=== PATIENT | male | born 1970 | race Caucasian/White ===

== ENCOUNTER 2018-07-02 13:13 | Emergency (ER) | END 2018-07-02 16:11 | disposition left against medical advice (07) ==

== ENCOUNTER 2018-07-09 10:23 | Inpatient (IN) | payer OTHER ==
[~2018-07-09] VITALS: Ht 170.2 cm; Wt 70.8 kg
[2018-07-09] MEDS ORDERED: morphine 4 MG/ML VIAL IV STA (13:03)
--- NOTE | 2018-07-09 13:03 | ERD ---
ER Documentation Chief Complaint Chief Complaint BACK PAIN,RIGHT LEG NUMBNESS HPI 47-year-old male sent here by neurosurgeon Dr. Caldwell for possible admission for surgery. Per the patient's consent for surgery, he is consented to do bilateral lumbar 2 through sacral 1 posterior lumbar laminectomies, partial facetectomies and foraminotomies. Patient states that he has been suffering with chronic low back pain for the past 2 years but his symptoms significantly worsened 2 months ago. He started getting weakness in both his lower extremities with occasional numbness of his right lower extremity with pain shooting down the back of his right lower extremity. He states that the pain is debilitating. He has tried injections, cryotherapy, and multiple other treatments without improvement of his symptoms. He denies any bladder incontinence or urinary retention. No bowel incontinence or retention. He is currently not on any opioid therapy. He was seen by Dr. Caldwell on June 23, 2018 and surgery was recommended as soon as possible. He called the office today to schedule surgery as his symptoms have been progressively but quickly worsening since he saw the surgeon, and he was told to come to the ER immediately. He denies any IV drug use. No fevers or chills. ROS All systems reviewed and are negative except as per history of present illness. Medications Home Meds Reported Medications Cyclobenzaprine Hcl* (Cyclobenzaprine Hcl*) 10 Mg Tablet, 10 MG PO QHS, #90 TAB 07/09/18 Trazodone Hcl* (Trazodone Hcl*) 150 Mg Tablet, 150 MG PO QHS, #30 TAB 07/09/18 Gabapentin* (Gabapentin*) 300 Mg Capsule, 300 MG PO Q6, #60 CAP 07/09/18 Allergies Allergies: Coded Allergies: No Known Allergy (Unverified , 07/09/18) PMhx/Soc History of Surgery: Yes (cervical spine) Anesthesia Reaction: No Hx Neurological Disorder: No Hx Respiratory Disorders: No Hx Cardiac Disorders: No Hx Psychiatric Problems: No Hx Miscellaneous Medical Probl: No (chronic back pain) Hx Alcohol Use: No Hx Substance Use: No Hx Tobacco Use: Yes Smoking Status: Current every day smoker FmHx Family History: No diabetes Physical Exam Vitals Vital Signs Date Temp Pulse Resp B/P (MAP) Pulse Ox O2 O2 Flow FiO2 Time Delivery Rate 07/09/18 98.1 83 16 115/83 99 Room Air 14:32 (94) 07/09/18 97.0 89 18 144/88 99 10:28 (106) Physical Exam Const: No acute distress nontoxic, well-appearing Head: Atraumatic Eyes: Normal Conjunctiva ENT: Normal External Ears, Nose and Mouth. Neck: Full range of motion. No meningismus. Resp: Clear to auscultation bilaterally Cardio: Regular rate and rhythm, no murmurs Abd: Soft, non tender, non distended. Normal bowel sounds Skin: No petechiae or rashes Back: Midline lower lumbar and sacral tenderness to palpation Ext: No cyanosis, or edema Neur: Awake and alert. Normal speech. Right lower extremity 4 out of 5 strength in all distributions. Left lower extremity 5 out of 5 strength in all the distributions. Sensations grossly intact. Gait not tested due to pain. Positive right and left straight leg raise Psych: Normal Mood and Affect Result Diagram: 07/09/18 1330 07/09/18 1330 Results 24 hrs Laboratory Tests Test 07/09/18 13:30 White Blood Count 15.1 10^3/ul Red Blood Count 4.69 10^6/ul Hemoglobin 15.4 g/dl Hematocrit 44.8 % Mean Corpuscular Volume 95.5 fl Mean Corpuscular Hemoglobin 32.8 pg Mean Corpuscular Hemoglobin Concent 34.4 g/dl Red Cell Distribution Width 12.8 % Platelet Count 263 10^3/UL Mean Platelet Volume 9.7 fl Immature Granulocytes % 0.500 % Neutrophils % 80.1 % Lymphocytes % 13.7 % Monocytes % 4.4 % Eosinophils % 0.9 % Basophils % 0.4 % Nucleated Red Blood Cells % 0.0 /100WBC Immature Granulocytes # 0.080 10^3/ul Neutrophils # 12.1 10^3/ul Lymphocytes # 2.1 10^3/ul Monocytes # 0.7 10^3/ul Eosinophils # 0.1 10^3/ul Basophils # 0.1 10^3/ul Nucleated Red Blood Cells # 0.0 10^3/ul Prothrombin Time 11.9 Sec Prothrombin Time Ratio 0.9 INR International Normalized Ratio 0.87 Activated Partial Thromboplast Time 34.5 Sec Urine Color YELLOW Urine Clarity CLEAR Urine pH 6.0 Urine Specific [place] 1.010 Urine Ketones NEGATIVE mg/dL Urine Nitrite NEGATIVE mg/dL Urine Bilirubin NEGATIVE mg/dL Urine Urobilinogen NEGATIVE mg/dL Urine Leukocyte Esterase NEGATIVE Sole/ul Urine Hemoglobin NEGATIVE mg/dL Urine Glucose NEGATIVE mg/dL Urine Total Protein NEGATIVE mg/dl Sodium Level 142 mmol/L Potassium Level 4.4 mmol/L Chloride Level 108 mmol/L Carbon Dioxide Level 26 mmol/L Anion Gap 8 Blood Urea Nitrogen 14 mg/dl Creatinine 0.94 mg/dl Est Glomerular Filtrat Rate mL/min > 60 mL/min Glucose Level 96 mg/dl Calcium Level 10.9 mg/dl Total Bilirubin 0.3 mg/dl Direct Bilirubin 0.00 mg/dl Indirect Bilirubin 0.3 mg/dl Aspartate Amino Transf (AST/SGOT) 21 IU/L Alanine Aminotransferase (ALT/SGPT) 20 IU/L Alkaline Phosphatase 82 IU/L Total Protein 7.9 g/dl Albumin 4.4 g/dl Globulin 3.50 g/dl Albumin/Globulin Ratio 1.25 Current Medications Medications Dose Sig/Josafat Start Time Status Last (Trade) Ordered Route PRN Stop Time Admin Dose Reason Admin Morphine 4 mg ONCE STAT 07/09/18 DC 07/09/18 Sulfate IV 13:03 07/09/18 13:27 (morphine) 13:05 Ondansetron 4 mg BRIDGE ORDER 07/09/18 HCl (Zofran PRN IV 14:00 07/10/18 Inj) NAUSEA AND/OR 13:59 VOMITING 650 mg ER BRIDGE 07/09/18 Acetaminophen PRN PO MILD 14:00 07/10/18 (Tylenol PAIN(1-3)OR 13:59 Tab) ELEVATED TEMP Morphine 6 mg ONCE ONCE 07/09/18 DC 07/09/18 Sulfate IV 14:30 07/09/18 14:35 (morphine) 14:31 Procedures/MDM EMERGENT LABS AND DIAGNOSTIC STUDIES: Lab Results above were reviewed and interpreted by me. CBC: Leukocytosis, unclear etiology. Probably stress response CMP: Mild hypercalcemia, unclear etiology. No evidence of electrolyte abnormality, renal failure, hypoglycemia, liver failure, or biliary obstruction 12-lead EKG was interpreted by Lenin Martinez MD: Normal Sinus Rhythm with ventricular rate of 84 beats per minute Normal axis Normal intervals No acute ST or T wave changes suggestive of acute ischemia or STEMI. Radiology Results as interpreted by Radiology below were reviewed by Chris Martinez MD: Chest x-ray shows no acute abnormalities Initial Nursing notes reviewed. Previous Medical Records requested via the Electronic Health Record. EMERGENCY DEPARTMENT COURSE / MEDICAL DECISION MAKING: Patient is presenting with a severe low back pain that has been progressively worsening with worsening right lower extremity weakness that is reproducible on exam. Vitals are stable. I have a low suspicion for epidural abscess or vascular emergency. However given his progressive right lower extremity weakness, I feel the patient will require admission for possible surgical intervention. I spoke with Dr. Caldwell, his neurosurgeon, who agrees and would like him admitted. Patient was treated with morphine for his pain with good response. He is agreeable to admission plan. Accepting Care Team: Current data and ongoing care discussed. Time: Time of admission Primary Provider: Dr. White Consulting: Dr. Caldwell Outstanding Data: none Departure Diagnosis: Primary Impression: Acute exacerbation of chronic low back pain Additional Impressions: Right leg weakness Paresthesias/numbness Condition: Serious SHAHANA MARTINEZ MD Jul 09, 2018 13:03
[2018-07-09] MEDS ORDERED: ACETAMINOPHEN 325 MG TAB PO PRN (14:00)
[2018-07-09] MEDS ORDERED: ONDANSETRON 4 MG INJ IV PRN ×2 (14:00→17:30)
[2018-07-09] MEDS ORDERED: morphine 10 MG INJ IV ONE (14:30)
[2018-07-09] MEDS ORDERED: GABA300C16 PO (14:53)
[2018-07-09] MEDS ORDERED: CYCL10TA7 PO (14:54)
[2018-07-09] MEDS ORDERED: TRAZ150T65 PO (14:54)
[2018-07-09 15:30] VITALS: BP 129/85; PULSE 74; RESP 18
[2018-07-09 15:48] VITALS: Ht 170.2 cm; Wt 70.8 kg
[2018-07-09] MEDS: HYDROmorphONE 1 MG/ML SYG IV PRN ×2 (17:15→21:05)
--- NOTE | 2018-07-09 18:27 | HP ---
Date/Time of Note Date/Time of Note DATE: 07/09/18 TIME: 18:22 Assessment/Plan VTE Prophylaxis Pharmacological prophylaxis: LMWH Lines/Catheters IV Catheter Type (from Nrsg): Peripheral IV Central line still needed: Yes Assessment/Plan Assessment/Plan -Acute lower back pain with RLE radiculopathy and weakness. Dr. Caldwell is follow ing in neurosurgery consultation. Continue pain management. -Tobacco dependence, Nicotine patch Further recommendations based on clinical course. Plan of care discussed with Dr. White. Result Diagram: 07/09/18 1330 07/09/18 1330 Results 24hrs Laboratory Tests Test 07/09/18 13:30 White Blood Count 15.1 H Red Blood Count 4.69 L Hemoglobin 15.4 Hematocrit 44.8 Mean Corpuscular Volume 95.5 Mean Corpuscular Hemoglobin 32.8 Mean Corpuscular Hemoglobin Concent 34.4 Red Cell Distribution Width 12.8 Platelet Count 263 Mean Platelet Volume 9.7 Immature Granulocytes % 0.500 H Neutrophils % 80.1 H Lymphocytes % 13.7 L Monocytes % 4.4 Eosinophils % 0.9 Basophils % 0.4 Nucleated Red Blood Cells % 0.0 Immature Granulocytes # 0.080 H Neutrophils # 12.1 H Lymphocytes # 2.1 Monocytes # 0.7 Eosinophils # 0.1 Basophils # 0.1 Nucleated Red Blood Cells # 0.0 Prothrombin Time 11.9 Prothrombin Time Ratio 0.9 INR International Normalized Ratio 0.87 Activated Partial Thromboplast Time 34.5 Urine Color YELLOW Urine Clarity CLEAR Urine pH 6.0 Urine Specific [place] 1.010 Urine Ketones NEGATIVE Urine Nitrite NEGATIVE Urine Bilirubin NEGATIVE Urine Urobilinogen NEGATIVE Urine Leukocyte Esterase NEGATIVE Urine Hemoglobin NEGATIVE Urine Glucose NEGATIVE Urine Total Protein NEGATIVE Sodium Level 142 Potassium Level 4.4 Chloride Level 108 Carbon Dioxide Level 26 Anion Gap 8 Blood Urea Nitrogen 14 Creatinine 0.94 Est Glomerular Filtrat Rate mL/min > 60 Glucose Level 96 Calcium Level 10.9 H Total Bilirubin 0.3 Direct Bilirubin 0.00 Indirect Bilirubin 0.3 Aspartate Amino Transf (AST/SGOT) 21 Alanine Aminotransferase (ALT/SGPT) 20 Alkaline Phosphatase 82 Total Protein 7.9 Albumin 4.4 Globulin 3.50 H Albumin/Globulin Ratio 1.25 HPI/ROS Admit Date/Time Admit Date/Time Jul 09, 2018 at 13:48 Hx of Present Illness Patient is 47-year-old male with acute on chronic low back pain over the last 2 years. Patient was seen by Dr. Caldwell in the office due to worsening of symptoms with developing weakness in bilateral lower extremities with numbness and a little low back pain radiating to right lower extremities. Patient failed conservative treatment with steroid injection cryotherapy. Patient will be admitted for pain management and will undergo lumbosacral laminectomy. Patient denies any bowel or urinary incontinence. Patient is an every day smoker. ROS 12 point review of systems negative except for what mentioned in HPI PMH/Family/Social Past Medical History Medications Current Medications Hydromorphone HCl (Dilaudid) 1 mg Q4H PRN IV SEVERE PAIN LEVEL 7-10 Last administered on 07/09/18at 17:15; Admin Dose 1 MG; Start 07/09/18 at 17:00 Gabapentin (Neurontin) 300 mg BID PO ; Start 07/09/18 at 21:00 Ondansetron HCl (Zofran Inj) 4 mg Q4H PRN IV NAUSEA AND/OR VOMITING; Start 07/09/18 at 17:30 Nicotine (Nicoderm 14 Mg/ 24hr) 1 patch DAILY TRANSDERM ; Start 07/09/18 at 21:00 Coded Allergies: No Known Allergy (Unverified , 07/09/18) Past Surgical History Past Surgical Hx: other (Cervical spine surgery) Social History Alcohol Use: none Smoking Status: Current every day smoker Drug Use: none Exam/Review of Systems Vital Signs Vitals Vital Signs Date Temp Pulse Resp B/P (MAP) Pulse Ox O2 O2 Flow FiO2 Time Delivery Rate 07/09/18 98.1 74 18 129/85 99 Room Air 15:30 (100) Exam Constitutional: alert, oriented Head: normocephalic Eyes: nl conjunctiva ENMT: nl external ears & nose Neck: supple Respiratory: clear to auscultation Cardiovascular: nl pulses Gastrointestinal: soft, non-tender Musculoskeletal: other (RLE weakness) Extremities: normal pulses Neurological: nl mental status Skin: nl turgor Lymph: nl lymph nodes NAVID HYATT Jul 09, 2018 18:27
[2018-07-09 19:45] VITALS: BP 96/66; PULSE 72; RESP 16
[2018-07-09] MEDS: GABAPENTIN 300 MG CAP PO SCH (21:05)
[2018-07-09] MEDS: NICOTINE (14 MG/24 HR) PATCH TRANSDERM SCH (21:05)
[2018-07-10] MEDS: HYDROmorphONE 1 MG/ML SYG IV PRN ×6 (01:10→20:46)
[2018-07-10 01:47] VITALS: BP 120/74; PULSE 66; RESP 18
[2018-07-10 07:21] VITALS: BP 103/60; PULSE 69; RESP 16
[2018-07-10] MEDS ORDERED: NICOTINE (14 MG/24 HR) PATCH TRANSDERM SCH (09:00)
[2018-07-10] MEDS: NICOTINE (14 MG/24 HR) PATCH TRANSDERM SCH (09:16)
[2018-07-10] MEDS: GABAPENTIN 300 MG CAP PO SCH ×2 (09:18→20:45)
--- NOTE | 2018-07-10 11:18 | CONS ---
Date/Time of Note Date/Time of Note DATE: 07/10/18 TIME: 11:13 Assessment/Plan Assessment/Plan Assessment/Plan 47 y/o male well known to Dr. Caldwell and recently evaluated for severe LBP with LE radiculopathy to RLE Multiple attempts at conservative management but without much success Recently seen by Dr. Caldwell on 06/23/2018 and advised he was a surgical candidate. Plan for L2-S1 ALIF tomorrow with posterior fixation to follow in 1-2 days. NPO after early breakfast. Surgery tomorrow at [address] Caldwell / Dr. Jazmine talamantes (Spine exposure) Discussed all risk/complications 3-5% as preprinted in Dr. Caldwell preop consent form. All questions answered and no guarantees given. pt understands risk/complications/benefits from surgery and would like to proceed. Result Diagram: 07/09/18 1330 07/09/18 1330 Results 24hrs Laboratory Tests Test 07/09/18 13:30 White Blood Count 15.1 H Red Blood Count 4.69 L Hemoglobin 15.4 Hematocrit 44.8 Mean Corpuscular Volume 95.5 Mean Corpuscular Hemoglobin 32.8 Mean Corpuscular Hemoglobin Concent 34.4 Red Cell Distribution Width 12.8 Platelet Count 263 Mean Platelet Volume 9.7 Immature Granulocytes % 0.500 H Neutrophils % 80.1 H Lymphocytes % 13.7 L Monocytes % 4.4 Eosinophils % 0.9 Basophils % 0.4 Nucleated Red Blood Cells % 0.0 Immature Granulocytes # 0.080 H Neutrophils # 12.1 H Lymphocytes # 2.1 Monocytes # 0.7 Eosinophils # 0.1 Basophils # 0.1 Nucleated Red Blood Cells # 0.0 Prothrombin Time 11.9 Prothrombin Time Ratio 0.9 INR International Normalized Ratio 0.87 Activated Partial Thromboplast Time 34.5 Urine Color YELLOW Urine Clarity CLEAR Urine pH 6.0 Urine Specific [place] 1.010 Urine Ketones NEGATIVE Urine Nitrite NEGATIVE Urine Bilirubin NEGATIVE Urine Urobilinogen NEGATIVE Urine Leukocyte Esterase NEGATIVE Urine Hemoglobin NEGATIVE Urine Glucose NEGATIVE Urine Total Protein NEGATIVE Sodium Level 142 Potassium Level 4.4 Chloride Level 108 Carbon Dioxide Level 26 Anion Gap 8 Blood Urea Nitrogen 14 Creatinine 0.94 Est Glomerular Filtrat Rate mL/min > 60 Glucose Level 96 Calcium Level 10.9 H Total Bilirubin 0.3 Direct Bilirubin 0.00 Indirect Bilirubin 0.3 Aspartate Amino Transf (AST/SGOT) 21 Alanine Aminotransferase (ALT/SGPT) 20 Alkaline Phosphatase 82 Total Protein 7.9 Albumin 4.4 Globulin 3.50 H Albumin/Globulin Ratio 1.25 Consultation Date/Type/Reason Admit Date/Time Jul 09, 2018 at 13:48 Past Medical History Medications Current Medications Hydromorphone HCl (Dilaudid) 1 mg Q4H PRN IV SEVERE PAIN LEVEL 7-10 Last administered on 07/10/18 09:18; Admin Dose 1 MG; Start 07/09/18 at 17:00 Gabapentin (Neurontin) 300 mg BID PO Last administered on 07/10/18 09:18; Admin Dose 300 MG; Start 07/09/18 at 21:00 Ondansetron HCl (Zofran Inj) 4 mg Q4H PRN IV NAUSEA AND/OR VOMITING; Start 07/09/18 at 17:30 Nicotine (Nicoderm 14 Mg/ 24hr) 1 patch DAILY TRANSDERM Last administered on 07/10/18 09:16; Admin Dose 1 PATCH; Start 07/09/18 at 21:00 Allergies: Coded Allergies: No Known Allergy (Unverified , 07/09/18) Past Surgical History Past Surgical Hx: other (Cervical spine surgery) Social History Alcohol Use: none Smoking Status: Current every day smoker Drug Use: none Exam/Review of Systems Vital Signs Vitals Vital Signs Date Temp Pulse Resp B/P (MAP) Pulse Ox O2 O2 Flow FiO2 Time Delivery Rate 07/10/18 98.5 69 16 103/60 98 Room Air 07:21 (74) Intake and Output 07/09/18 07/09/18 07/10/18 1515:00 23:00 07:00 IntakeIntake Total 360 ml OutputOutput Total 600 ml BalanceBalance 360 ml -600 ml Medications Medications Current Medications Hydromorphone HCl (Dilaudid) 1 mg Q4H PRN IV SEVERE PAIN LEVEL 7-10 Last administered on 07/10/18 09:18; Admin Dose 1 MG; Start 07/09/18 at 17:00 Gabapentin (Neurontin) 300 mg BID PO Last administered on 07/10/18 09:18; Admin Dose 300 MG; Start 07/09/18 at 21:00 Ondansetron HCl (Zofran Inj) 4 mg Q4H PRN IV NAUSEA AND/OR VOMITING; Start 07/09/18 at 17:30 Nicotine (Nicoderm 14 Mg/ 24hr) 1 patch DAILY TRANSDERM Last administered on 07/10/18at 09:16; Admin Dose 1 PATCH; Start 07/09/18 at 21:00 TL TORRES NP Jul 10, 2018 11:18
[2018-07-10 14:32] VITALS: BP 107/65; PULSE 77; RESP 18
--- NOTE | 2018-07-10 15:20 | PN ---
Date/Time of Note Date/Time of Note DATE: 07/10/18 TIME: 15:19 Assessment/Plan VTE Prophylaxis Risk score (from Nsg)>0 risk: 2 SCD applied (from Nsg): Yes Pharmacological prophylaxis: LMWH Lines/Catheters IV Catheter Type (from Nrsg): Saline Lock Assessment/Plan Hospital Course Assessment/Plan -Acute lower back pain with RLE radiculopathy and weakness. Dr. Caldwell is following in neurosurgery consultation. Continue pain management. Plan for L2- S1 ALIF tomorrow with posterior fixation to follow in 1-2 days. -Tobacco dependence, continue Nicotine patch, cessation advised. Further recommendations based on clinical course. Plan of care discussed with Dr. White. Result Diagram: 07/10/18 1124 07/10/18 1124 Results 24hrs Laboratory Tests Test 07/10/18 11:24 White Blood Count 9.4 # Red Blood Count 4.46 L Hemoglobin 14.7 Hematocrit 42.3 Mean Corpuscular Volume 94.8 Mean Corpuscular Hemoglobin 33.0 Mean Corpuscular Hemoglobin Concent 34.8 Red Cell Distribution Width 12.9 Platelet Count 237 Mean Platelet Volume 10.3 Immature Granulocytes % 0.600 H Neutrophils % 59.3 Lymphocytes % 29.2 Monocytes % 6.6 Eosinophils % 3.4 Basophils % 0.9 Nucleated Red Blood Cells % 0.0 Immature Granulocytes # 0.060 H Neutrophils # 5.6 Lymphocytes # 2.8 Monocytes # 0.6 Eosinophils # 0.3 Basophils # 0.1 Nucleated Red Blood Cells # 0.0 Prothrombin Time 11.6 L Prothrombin Time Ratio 0.9 INR International Normalized Ratio 0.84 Activated Partial Thromboplast Time 33.7 Sodium Level 138 Potassium Level 4.5 Chloride Level 105 Carbon Dioxide Level 30 Anion Gap 3 L Blood Urea Nitrogen 21 H Creatinine 1.07 Est Glomerular Filtrat Rate mL/min > 60 Glucose Level 86 Calcium Level 10.8 H Exam/Review of Systems Vital Signs Vitals Vital Signs Date Temp Pulse Resp B/P (MAP) Pulse Ox O2 O2 Flow FiO2 Time Delivery Rate 07/10/18 98.8 77 18 107/65 97 Room Air 14:32 (79) Intake and Output 07/09/18 07/09/18 07/10/18 1515:00 23:00 07:00 IntakeIntake Total 360 ml OutputOutput Total 600 ml BalanceBalance 360 ml -600 ml Exam Constitutional: alert, oriented Neck: supple Respiratory: normal air movement Cardiovascular: nl pulses Gastrointestinal: soft, non-tender Musculoskeletal: other (Right lower extremity pain and weakness) Extremities: normal pulses Medications Medications Current Medications Hydromorphone HCl (Dilaudid) 1 mg Q4H PRN IV SEVERE PAIN LEVEL 7-10 Last administered on 07/10/18 13:20; Admin Dose 1 MG; Start 07/09/18 at 17:00 Gabapentin (Neurontin) 300 mg BID PO Last administered on 07/10/18at 09:18; Admin Dose 300 MG; Start 07/09/18 at 21:00 Ondansetron HCl (Zofran Inj) 4 mg Q4H PRN IV NAUSEA AND/OR VOMITING; Start 07/09/18 at 17:30 Nicotine (Nicoderm 14 Mg/ 24hr) 1 patch DAILY TRANSDERM Last administered on 07/10/18at 09:16; Admin Dose 1 PATCH; Start 07/09/18 at 21:00 NAVID HYATT Jul 10, 2018 15:20
[2018-07-10 20:29] VITALS: BP 109/75; PULSE 77; RESP 16
[2018-07-11] VITALS (10 sets, daily range): BP systolic 104–146; BP diastolic 69–102; PULSE 77–112; RESP 11–18
[2018-07-11] MEDS: HYDROmorphONE 1 MG/ML SYG IV PRN ×5 (00:56→20:09)
[2018-07-11] MEDS: GABAPENTIN 300 MG CAP PO SCH ×2 (08:52→20:51)
[2018-07-11] MEDS: NICOTINE (14 MG/24 HR) PATCH TRANSDERM SCH (08:52)
[2018-07-11] MEDS ORDERED: MIDAZOLAM 1 MG/ML 2 ML INJ ONE (13:48)
[2018-07-11] MEDS ORDERED: FENTAnyl 50 MCG/ML VIAL ONE ×3 (13:48→18:09)
[2018-07-11] MEDS ORDERED: PROPOFOL 20 ML ONE (13:49)
[2018-07-11] MEDS ORDERED: METOCLOPRAMIDE 10 MG INJ ONE (13:50)
[2018-07-11] MEDS ORDERED: ROCURONIUM 50 MG INJ ONE (13:55)
[2018-07-11] MEDS ORDERED: LIDOCAINE 2% (SDV) 5 ML INJ ONE (13:55)
[2018-07-11] MEDS ORDERED: SUCCINYLCHOLINE CHLORIDE 100 MG/5 ML SYG IV ONE (13:55)
[2018-07-11] MEDS ORDERED: CEFAZOLIN 1 GM INJ ONE ×2 (13:56→16:19)
[2018-07-11] MEDS ORDERED: HYDROmorphONE 2 MG/ML SYG ONE (13:56)
[2018-07-11] MEDS ORDERED: GELATIN SIZE 100 SPONGE ONE (16:19)
[2018-07-11] MEDS ORDERED: HEPARIN 1000 UNITS/ML 10 ML INJ ONE (16:19)
[2018-07-11] MEDS ORDERED: THROMBIN 5000 UNIT VIAL ONE (16:19)
[2018-07-11] MEDS ORDERED: KETAMINE (50 MG/ML) 10 ML VIAL ONE (16:48)
[2018-07-11] MEDS ORDERED: NALOXONE (0.4 MG/ML) INJ IV PRN (18:00)
[2018-07-11] MEDS ORDERED: CEFAZOLIN 2 GM/50 ML (PMX) 50 ML IVPB SCH (19:30)
--- NOTE | 2018-07-11 19:43 | OPPN ---
Date/Time of Note Date/Time of Note DATE: 07/11/18 TIME: 19:41 Operative Report Preoperative Diagnosis mechanical LBP and LE radiculopathy Postoperative Diagnosis same Operation/Procedure Performed ALIF L2-S1 Surgeon see signature line assistant professor of geography Malekmehr Second assist: TL TORRES NP Anesthesia: general Estimated blood loss: 200 - 250 ml's Transfusion Required none Specimen sent Grafts/Implants cages, screws, formagraft, allograft bone Complications none ADDISON VEGA MD Jul 11, 2018 19:43
--- NOTE | 2018-07-11 19:49 | PREAC ---
Date/Time of Note Date/Time of Note DATE: 07/11/18 TIME: 19:48 Anesthesia Eval and Record Evaluation Time Pre-Procedure Interview DATE: 07/11/18 TIME: pt preoped at 1630 Age 47 Sex male NPO: 8 hrs Preoperative diagnosis lumbosacral radiculopathy Planned procedure L2-S1 anterior "alift" interbody spinal fusion Past Medical History Past Medical History: Includes Pulm: Smoking Hx, COPD Neuro: Peripheral neuropathy Psych: Anxiety Surgery & Anesthesia Issues No known issue Meds Anticoagulation: No Beta Sheldon within 24 hr: No Reason Beta Sheldon not given: Pt. not on B-Sheldon Reported Medications Cyclobenzaprine Hcl* (Cyclobenzaprine Hcl*) 10 Mg Tablet, 10 MG PO QHS, #90 TAB 07/09/18 Trazodone Hcl* (Trazodone Hcl*) 150 Mg Tablet, 150 MG PO QHS, #30 TAB 07/09/18 Gabapentin* (Gabapentin*) 300 Mg Capsule, 300 MG PO Q6, #60 CAP 07/09/18 Current Medications Gabapentin (Neurontin) 300 mg BID PO Last administered on 07/11/18at 08:52; Admin Dose 300 MG; Start 07/09/18 at 21:00 Ondansetron HCl (Zofran Inj) 4 mg Q4H PRN IV NAUSEA AND/OR VOMITING; Start 07/09/18 at 17:30 Nicotine (Nicoderm 14 Mg/ 24hr) 1 patch DAILY TRANSDERM Last administered on 07/11/18at 08:52; Admin Dose 1 PATCH; Start 07/09/18 at 21:00 Hydromorphone HCl (Dilaudid) 1.5 mg Q4H PRN IV SEVERE PAIN LEVEL 7-10 Last administered on 07/11/18at 13:14; Admin Dose 1.5 MG; Start 07/10/18 at 21:00 Hydromorphone HCl (Dilaudid [employer]) MG/HR CONTINUOUS RATE ... Q4PCA IV ; Start 07/11/18 at 18:00 Naloxone HCl (Narcan) 0.2 mg Q2M PRN IV SHORTNESS OF BREATH; Start 07/11/18 at 1 8:00 Cefazolin Sodium/ Dextrose 50 ml @ 100 mls/hr Q8 IVPB ; Start 07/11/18 at 19:30; Stop 07/13/18 at 22:00 Potassium Chloride/Sodium Chloride 1,000 ml @ 100 mls/hr Q10H IV ; Start 07/11/18 at 19:00 Meds reviewed: Yes Allergies Coded Allergies: No Known Allergy (Unverified , 07/09/18) Allergies Reviewed: Yes Labs/Studies Labs Reviewed: Reviewed by anesthesiologist Result Diagram: 07/10/18 1124 07/10/18 1124 test: N/A Studies: ECG, CXR Pre-procedure Exam Last vitals Vital Signs Date Temp Pulse Resp B/P (MAP) Pulse Ox O2 O2 Flow FiO2 Time Delivery Rate 07/11/18 98.2 77 18 104/69 95 Room Air 14:32 (81) Airway: Adequate mouth opening, Adequate thyromental dist Mallampati: Mallampati III Teeth: Abnormal (poor dentition) Lung: Normal Heart: Normal ASA Physical Status ASA physical status: 3 Emergency: None Planned Anesthetic General/MAC: ETT Planned Pain Management Parenteral pain med, Local by surgeon Pre-operative Attestations Prior to commencing anesthesia and surgery, the patient was re-evaluated, there was verification of: *The patient's identity *The results of appropriate recent lab work and preoperative vital signs *The above evaluation not changing prior to induction *Anesthetic plan, risk benefits, alternative and complications discussed with patient/family; questions answered; patient/family understands, accepts and wishes to proceed. ZOILA ROJAS MD Jul 11, 2018 19:49
[2018-07-11] MEDS ORDERED: DIPHENHYDRAMINE 50 MG INJ IV PRN (20:00)
[2018-07-11] MEDS ORDERED: LEVALBUTEROL (NEB) 1.25 MG/0.5 ML AMP HHN PRN (20:00)
[2018-07-11] MEDS ORDERED: ONDANSETRON 4 MG INJ IV PRN (20:00)
[2018-07-11] MEDS ORDERED: PROCHLORPERAZINE 10 MG INJ IV PRN (20:00)
[2018-07-11] MEDS ORDERED: LABETALOL HCL 20MG INJ IV PRN (20:00)
[2018-07-11] MEDS ORDERED: TRIMETHOBENZAMIDE 100 MG/ML VIAL IM PRN (20:00)
[2018-07-11] MEDS ORDERED: HYDROmorphONE 0.5 MG/0.5 ML SYG IV PRN ×3 (20:00)
[2018-07-11] MEDS ORDERED: hydrALAzine 20 MG INJ IV PRN (20:00)
[2018-07-11] MEDS ORDERED: FENTAnyl 50 MCG/ML VIAL IV PRN ×2 (20:00)
[2018-07-11] MEDS ORDERED: IPRATROPIUM (NEB) 0.5 MG/2.5 ML AMP HHN PRN (20:00)
[2018-07-11] MEDS ORDERED: MEPERIDINE 25 MG INJ IV PRN (20:00)
[2018-07-11] MEDS ORDERED: SUGAMMADEX SODIUM 200 MG/2 ML VIAL IV ONE (20:08)
[2018-07-11] MEDS: HYDROmorphONE 0.2 MG/ML PCA IV SCH (20:46)
[2018-07-11] MEDS: NS + KCL 20 MEQ 1,000 ML IV SCH (21:13)
[2018-07-11] MEDS: CEFAZOLIN 2 GM/50 ML (PMX) 50 ML IVPB SCH (23:57)
[2018-07-12] VITALS (18 sets, daily range): BP systolic 92–130; BP diastolic 56–97; PULSE 104–125; RESP 13–20
--- NOTE | 2018-07-12 00:59 | OPR ---
DATE OF OPERATION: PREOPERATIVE DIAGNOSIS: Degenerative disk disease, lumbosacral spine. POSTOPERATIVE DIAGNOSIS: Degenerative disk disease, lumbosacral spine. OPERATIONS PERFORMED: 1. Anterior retroperitoneal exposure interbody fusion, L2 to L3. 2. Anterior retroperitoneal exposure interbody fusion, L3 to L4. 3. Anterior retroperitoneal exposure interbody fusion, L4 to L5. 4. Anterior retroperitoneal exposure interbody fusion, L5 to S1. 5. Mobilization of the aorta and vena cava to the right. 6. Ligation of the iliolumbar veins on the left side. SURGEON: Chandrakant Carson MD COSURGEON: Antonieta Vega MD ANESTHESIA: General. ESTIMATED BLOOD LOSS: 200 mL. INFORMED CONSENT: Risks, benefits, complications, alternative therapies and high-risk nature of the operation were fully explained to the patient and the family. Consent was obtained. Risks and benef its that were explained to the patient included but not limited to bleeding, infection, damage to bow el, damage to ureter, wound infection, wound dehiscence, DVT, PE, loss of limb, loss of life, high-ri sk nature of the operation were fully explained and stressed to the patient. All questions were answ ered. OPERATIVE TECHNIQUE: The patient was placed in supine position, prepped and draped in usual sterile fashion. I made a 15 cm incision in the left of the umbilicus longitudinal fashion. Incision was ta juanpablo down to subcutaneous tissue which was then opened using electrocautery. Left anterior rectus she ath was opened in the direction of the wound. Left rectus muscle was mobilized superiorly and inferi danisha about 5 cm. Posterior rectus sheath was incised superiorly about 5 cm. Bookwalter retractor wa s placed retracting the bowel contents to the right, left rectus muscle to the left. I dissected lef t common iliac artery and vein, external iliac artery and vein. The left iliolumbar veins were ligat ed using 2-0 silk ties and titanium clips. The left lowest segmental vessels x2 were ligated using t itanium clip except for exposure for L2 to L3, L3 to L4, L4 to L5 and L5 to S1 was obtained by retrac ting the left common iliac artery and vein, vena cava and aorta to the right. We proceeded with the diskectomy and placement of the new cage. Please refer to Dr. Vega's dictation for the details of t hat operation. After all x-rays were satisfactorily read by Dr. Vega, needle count and sponge count was correct. The wound was irrigated using antibiotic solution. Posterior rectus sheath was closed using 0 Vicryl suture in running fashion. Anterior rectus sheath was closed using #1 Vicryl suture in a running fashion. Ezio were used for the skin. The patient tolerated procedure well. Dictated By: CHANDRAKANT CARSON MD FM/NTS Conf#: [id number] DID#: [id number] CC: ANTONIETA VEGA MD; ALOK DE LEON MD;*EndCC*
--- NOTE | 2018-07-12 01:02 | CONS ---
DATE OF ADMISSION: 07/09/2018 DATE OF CONSULTATION: REASON FOR CONSULTATION: Surgical. HISTORY OF PRESENT ILLNESS: This is a 47-year-old male with history of degenerative disk disease, wh o is here to undergo anterior retroperitoneal exposure and interbody fusion of lumbosacral spine. PAST SURGICAL HISTORY: None. SOCIAL HISTORY: No smoking or drinking. The patient did use drugs in the past. ALLERGIES: NONE. MEDICATION LIST: Reviewed. PHYSICAL EXAMINATION: VITAL SIGNS: Blood pressure is 102/60, pulse is 80, respirations 18. HEENT: Normocephalic, atraumatic. PERRLA. NECK: Supple. No JVD. No carotid bruits. CARDIOVASCULAR: Normal S1, S2. No murmurs, gallops or rubs. LUNGS: Clear to auscultation and palpation bilaterally. EXTREMITIES: Warm. IMPRESSION: Degenerative disk disease, lumbosacral spine. RECOMMENDATIONS: We will proceed with anterior retroperitoneal exposure interbody fusion of lumbosac ral spine. Risks, benefits, complications, alternative therapies were explained to the patient. Con sent was obtained. Risks and benefits that were explained to the patient included but not limited to bleeding, infection, damage to bowel, damage to ureter, wound infection, wound dehiscence, DVT, PE, loss of limb, loss of life. All questions were answered. The high-risk nature of the operation was fully explained and stressed to the patient. All questions were answered. Dictated By: CHANDRAKANT COSBY MD FM/NTS Conf#: [id number] DID#: [id number] CC: ADDISON VEGA MD; ALOK DE LEON MD;*EndCC*
[2018-07-12] MEDS: ALBUTEROL/IPRATROPIUM (NEB) 3 ML AMP HHN SCH ×2 (01:25→08:00)
[2018-07-12] MEDS: HYDROmorphONE 0.2 MG/ML PCA IV SCH ×3 (01:52→16:45)
--- NOTE | 2018-07-12 02:20 | PAC ---
Date/Time of Note Date/Time of Note DATE: 07/12/18 TIME: 02:19 Post-Anesthesia Notes Post-Anesthesia Note Last documented vital signs Vital Signs Date Temp Pulse Resp B/P (MAP) Pulse Ox O2 O2 Flow FiO2 Time Delivery Rate 07/12/18 Nasal 2.0 02:00 Cannula 07/12/18 118 13 101/75 96 02:00 (84) 07/12/18 27 01:51 07/12/18 98.0 00:00 Activity: WNL Respiratory function: WNL Cardiovascular function: WNL Mental status: Baseline Pain reasonably controlled: Yes Hydration appropriate: Yes Nausea/Vomiting absent: Yes ZOILA ROJAS MD Jul 12, 2018 02:20
[2018-07-12] MEDS: CEFAZOLIN 2 GM/50 ML (PMX) 50 ML IVPB SCH ×3 (06:29→21:26)
[2018-07-12] MEDS: NS + KCL 20 MEQ 1,000 ML IV SCH (06:29)
[2018-07-12] MEDS: GABAPENTIN 300 MG CAP PO SCH ×2 (08:50→21:25)
[2018-07-12] MEDS: NICOTINE (14 MG/24 HR) PATCH TRANSDERM SCH (08:51)
[2018-07-12] MEDS: HYDROmorphONE 1 MG/ML SYG IV PRN (10:13)
--- NOTE | 2018-07-12 14:16 | PN ---
Date/Time of Note Date/Time of Note DATE: 07/12/18 TIME: 14:13 Assessment/Plan VTE Prophylaxis Risk score (from Ns)>0 risk: 8 SCD applied (from Ns): Yes SCD contraindicated: other Pharmacological prophylaxis: other Pharm contraindication: other Lines/Catheters IV Catheter Type (from Nrsg): A Line Central line still needed: Yes Urinary Cath still in place: Yes Reason Cath still needed: urinary retention Assessment/Plan Assessment/Plan - SP Anterior retroperitoneal exposure interbody fusion, L2 to L3 , L3 to L4; L4 to L5; L5 to S1. - Dr. Caldwell is following in neurosurgery consultation. - Acute lower back pain with radiculopathy and lower extremities weakness. - Continue pain management. -Tobacco dependence - provide smoking cessation Further recommendations based on clinical course. Plan of care discussed with Dr. White. Result Diagram: 07/12/18 0507 07/12/18 0448 Results 24hrs Laboratory Tests Test 07/12/18 04:48 07/12/18 05:07 Sodium Level 136 Potassium Level 4.5 Chloride Level 109 Carbon Dioxide Level 23 Anion Gap 9 # Blood Urea Nitrogen 19 Creatinine 0.96 Est Glomerular Filtrat Rate mL/min > 60 Glucose Level 104 Calcium Level 8.9 Hemoglobin 12.0 L Hematocrit 34.4 L Exam/Review of Systems Vital Signs Vitals Vital Signs Date Temp Pulse Resp B/P (MAP) Pulse Ox O2 O2 Flow FiO2 Time Delivery Rate 07/12/18 99.0 116 20 110/62 99 Nasal 12:00 (78) Cannula 07/12/18 2.0 08:00 07/12/18 27 01:51 Intake and Output 07/11/18 07/11/18 07/12/18 1414:59 22:59 06:59 IntakeIntake Total 320 ml 1560 ml OutputOutput Total 850 ml 1025 ml 1075 ml BalanceBalance -850 ml -705 ml 485 ml Medications Medications Current Medications Gabapentin (Neurontin) 300 mg BID PO Last administered on 07/12/18at 08:50; Admin Dose 300 MG; Start 07/09/18 at 21:00 Ondansetron HCl (Zofran Inj) 4 mg Q4H PRN IV NAUSEA AND/OR VOMITING; Start 07/09/18 at 17:30 Nicotine (Nicoderm 14 Mg/ 24hr) 1 patch DAILY TRANSDERM Last administered on 07/12/18 08:51; Admin Dose 1 PATCH; Start 07/09/18 at 21:00 Hydromorphone HCl (Dilaudid) 1.5 mg Q4H PRN IV SEVERE PAIN LEVEL 7-10 Last administered on 07/12/18 10:13; Admin Dose 1.5 MG; Start 07/10/18 at 21:00 Hydromorphone HCl (Dilaudid [employer]) MG/HR CONTINUOUS RATE ... Q4PCA IV Last administered on 07/12/18 09:37; Admin Dose 6 MG; Start 07/11/18 at 18:00 Naloxone HCl (Narcan) 0.2 mg Q2M PRN IV SHORTNESS OF BREATH; Start 07/11/18 at 18:00 Potassium Chloride/Sodium Chloride 1,000 ml @ 100 mls/hr Q10H IV Last administered on 07/12/18 06:29; Admin Dose 100 MLS/HR; Start 07/11/18 at 19:00 Cefazolin Sodium/ Dextrose 50 ml @ 100 mls/hr Q8 IVPB Last administered on 07/12/18 06:29; Admin Dose 100 MLS/HR; Start 07/12/18 at 00:00; Stop 07/14/18 at 00:00 Albuterol/ Ipratropium (Duoneb) 3 ml Q6H RESP THERAPY HHN Last administered on 07/12/18 01:25; Admin Dose 3 ML; Start 07/12/18 at 02:00 ADRYAN RHODES Jul 12, 2018 14:16
[2018-07-12] MEDS ORDERED: ALBUTEROL/IPRATROPIUM (NEB) 3 ML AMP HHN PRN (14:30)
[2018-07-12] MEDS ORDERED: HYDROCODONE/APAP (10/325) TAB PO PRN (17:00)
[2018-07-12] MEDS ORDERED: ACETAMINOPHEN 325 MG TAB PO PRN (17:00)
[2018-07-12] MEDS: HYDROCODONE/APAP (10/325) TAB PO PRN ×2 (17:09→21:31)
[2018-07-13] VITALS: BP 107/61; PULSE 104; RESP 20
[2018-07-13] MEDS: HYDROmorphONE 0.2 MG/ML PCA IV SCH ×3 (01:18→20:48)
[2018-07-13 04:00] VITALS: BP 101/73; PULSE 87; RESP 20
[2018-07-13] MEDS: CEFAZOLIN 2 GM/50 ML (PMX) 50 ML IVPB SCH ×3 (05:09→21:51)
[2018-07-13 07:31] VITALS: BP 111/79; PULSE 109; RESP 16
[2018-07-13] MEDS: HYDROCODONE/APAP (10/325) TAB PO PRN ×4 (08:07→20:46)
[2018-07-13] MEDS: NICOTINE (14 MG/24 HR) PATCH TRANSDERM SCH (09:34)
[2018-07-13] MEDS: GABAPENTIN 300 MG CAP PO SCH ×2 (09:34→20:46)
[2018-07-13] MEDS: KETOROLAC 30 MG INJ IV PRN ×2 (12:32→18:47)
--- NOTE | 2018-07-13 14:37 | PN ---
Date/Time of Note Date/Time of Note DATE: 07/13/18 TIME: 14:29 Assessment/Plan VTE Prophylaxis Risk score (from Ns)>0 risk: 7 [place] [facility] [place] Pharmacological prophylaxis: other Pharm contraindication: other Lines/Catheters IV Catheter Type (from Nrsg): Central Line Central line still needed: Yes Urinary Cath still in place: Yes Reason Cath still needed: urinary retention Assessment/Plan Assessment/Plan -Leukocytosis - SP Anterior retroperitoneal exposure interbody fusion, L2 to L3 , L3 to L4; L4 to L5; L5 to S1. - Dr. Caldwell is following in neurosurgery consultation. - Acute lower back pain with radiculopathy and lower extremities weakness. - Continue pain management. -Tobacco dependence - provide smoking cessation Further recommendations based on clinical course. Plan of care discussed with Dr. White. Result Diagram: 07/13/18 0432 07/13/18 0432 Results 24hrs Laboratory Tests Test 07/12/18 17:17 07/12/18 23:00 07/13/18 04:32 White Blood Count 14.9 #H 16.3 H Red Blood Count 3.88 L 3.75 L Hemoglobin 12.8 L 12.4 L Hematocrit 37.8 L 36.5 L Mean Corpuscular Volume 97.4 97.3 Mean Corpuscular Hemoglobin 33.0 33.1 H Mean Corpuscular Hemoglobin Concent 33.9 34.0 Red Cell Distribution Width 13.1 12.8 Platelet Count 194 197 Mean Platelet Volume 10.2 10.5 H Immature Granulocytes % 0.500 H 0.700 H Neutrophils % 78.2 H 73.7 Lymphocytes % 11.8 L 14.5 L Monocytes % 8.1 9.2 Eosinophils % 0.9 1.5 Basophils % 0.5 0.4 Nucleated Red Blood Cells % 0.0 0.0 Immature Granulocytes # 0.070 H 0.120 H Neutrophils # 11.7 H 12.0 H Lymphocytes # 1.8 2.4 Monocytes # 1.2 H 1.5 H Eosinophils # 0.1 0.3 Basophils # 0.1 0.1 Nucleated Red Blood Cells # 0.0 0.0 Sodium Level 132 L 137 Potassium Level 5.0 4.3 Chloride Level 105 105 Carbon Dioxide Level 23 25 Anion Gap 4 L 7 Blood Urea Nitrogen 16 18 Creatinine 1.02 1.11 Est Glomerular Filtrat Rate mL/min > 60 > 60 Glucose Level 96 84 Lactic Acid Level 0.8 Calcium Level 10.0 10.2 Urine Color STRAW Urine Clarity CLEAR Urine pH 5.0 Urine Specific Bryant 1.008 Urine Ketones NEGATIVE Urine Nitrite NEGATIVE Urine Bilirubin NEGATIVE Urine Urobilinogen NEGATIVE Urine Leukocyte Esterase TRACE A Urine Microscopic RBC 1 Urine Microscopic WBC 4 Urine Bacteria FEW A Urine Hemoglobin 1+ H Urine Glucose NEGATIVE Urine Total Protein NEGATIVE Subjective 24 Hr Interval Summary Free Text/Dictation Going for surgery tomorrow- posterior approach Exam/Review of Systems Vital Signs Vitals Vital Signs Date Temp Pulse Resp B/P (MAP) Pulse Ox O2 O2 Flow FiO2 Time Delivery Rate 07/13/18 18 12:00 07/13/18 98.3 109 111/79 97 Room Air 07:31 (90) 07/12/18 2.0 17:09 07/12/18 27 01:51 Intake and Output 07/12/18 07/12/18 07/13/18 1515:00 23:00 07:00 IntakeIntake Total 2350 ml 600 ml 690 ml OutputOutput Total 2800 ml 1300 ml 800 ml BalanceBalance -450 ml -700 ml -110 ml Medications Medications Current Medications Gabapentin (Neurontin) 300 mg BID PO Last administered on 07/13/18 09:34; Admin Dose 300 MG; Start 07/09/18 at 21:00 Ondansetron HCl (Zofran Inj) 4 mg Q4H PRN IV NAUSEA AND/OR VOMITING; Start 07/09/18 at 17:30 Nicotine (Nicoderm 14 Mg/ 24hr) 1 patch DAILY TRANSDERM Last administered on 07/13/18at 09:34; Admin Dose 1 PATCH; Start 07/09/18 at 21:00 Hydromorphone HCl (Dilaudid [employer] OFF[employer]) MG/HR CONTINUOUS RATE ... Q4PCA IV Last administered on 07/13/18 13:07; Admin Dose 6 MG; Start 07/11/18 at 18:00 Naloxone HCl (Narcan) 0.2 mg Q2M PRN IV SHORTNESS OF BREATH; Start 07/11/18 at 18:00 Cefazolin Sodium/ Dextrose 50 ml @ 100 mls/hr Q8 IVPB Last administered on 07/13/18at 05:09; Admin Dose 100 MLS/HR; Start 07/12/18 at 00:00; Stop 07/14/18 at 00:00 Albuterol/ Ipratropium (Duoneb) 3 ml Q6H RESP THERAPY PRN HHN SHORTNESS OF BREATH; Start 07/12/18 at 14:30 Acetaminophen (Tylenol Tab) 650 mg Q6H PRN PO ELEVATED TEMPERATURE; Start 07/12/18 at 17:00 Acetaminophen/ Hydrocodone Bitart ([place] (10/325)) 1 tab Q4H PRN PO MODERATE TO SEVERE PAIN Last administered on 07/13/18at 11:49; Admin Dose 1 TAB; Start 07/12/18 at 17:00 Ketorolac Tromethamine (Toradol) 30 mg Q6H PRN IV PAIN LEVEL 4-7 Last a dministered on 07/13/18at 12:32; Admin Dose 30 MG; Start 07/13/18 at 12:00; Stop 07/16/18 at 11:59 ADRYAN RHODES Jul 13, 2018 14:36
[2018-07-13 15:22] VITALS: BP 98/68; PULSE 92; RESP 15
[2018-07-13 19:31] VITALS: BP 103/63; PULSE 79; RESP 16
[2018-07-14] VITALS (28 sets, daily range): BP systolic 94–132; BP diastolic 55–87; PULSE 77–98; RESP 16–22
[2018-07-14] MEDS ORDERED: ROCURONIUM 50 MG INJ ONE ×2 (07:00→15:27)
[2018-07-14] MEDS: HYDROmorphONE 0.2 MG/ML PCA IV SCH ×3 (07:08→17:57)
[2018-07-14] MEDS: GABAPENTIN 300 MG CAP PO SCH ×2 (07:43→20:44)
[2018-07-14] MEDS: HYDROCODONE/APAP (10/325) TAB PO PRN ×3 (08:00→20:44)
[2018-07-14] MEDS: NICOTINE (14 MG/24 HR) PATCH TRANSDERM SCH (09:00)
[2018-07-14] MEDS ORDERED: THROMBIN 5000 UNIT VIAL ONE (14:58)
[2018-07-14] MEDS ORDERED: POLYMYXIN/BACITRACIN 1L IRRIG ONE (14:58)
[2018-07-14] MEDS ORDERED: GELATIN SIZE 100 SPONGE ONE (14:59)
[2018-07-14] MEDS ORDERED: ROPIVACAINE 0.5 % 30 ML VIAL ONE (14:59)
--- NOTE | 2018-07-14 14:59 | PREAC ---
Date/Time of Note Date/Time of Note DATE: 07/14/18 TIME: 14:58 Anesthesia Eval and Record Evaluation Time Pre-Procedure Interview DATE: 07/14/18 TIME: 14:58 Age 47 Sex male NPO: 8 hrs Preoperative diagnosis mechanical low back pain and radiculopathy s/p SP anterior lumbar interbody fusion, L2 to S1 Planned procedure bilateral L2-S1 posterior lumbar fusion Past Medical History Past Medical History: Includes Pulm: Smoking Hx Psych: Anxiety Surgery & Anesthesia Issues No known issue Meds Anticoagulation: No Beta Sheldon within 24 hr: No Reason Beta Sheldon not given: Pt. not on B-Sheldon Reported Medications Cyclobenzaprine Hcl* (Cyclobenzaprine Hcl*) 10 Mg Tablet, 10 MG PO QHS, #90 TAB 07/09/18 Trazodone Hcl* (Trazodone Hcl*) 150 Mg Tablet, 150 MG PO QHS, #30 TAB 07/09/18 Gabapentin* (Gabapentin*) 300 Mg Capsule, 300 MG PO Q6, #60 CAP 07/09/18 Current Medications Gabapentin (Neurontin) 300 mg BID PO Last administered on 07/13/18at 20:46; Admin Dose 300 MG; Start 07/09/18 at 21:00 Ondansetron HCl (Zofran Inj) 4 mg Q4H PRN IV NAUSEA AND/OR VOMITING; Start 07/09/18 at 17:30 Nicotine (Nicoderm 14 Mg/ 24hr) 1 patch DAILY TRANSDERM Last administered on 07/13/18at 09:34; Admin Dose 1 PATCH; Start 07/09/18 at 21:00 Hydromorphone HCl (Dilaudid [employer]) MG/HR CONTINUOUS RATE ... Q4PCA IV Last administered on 07/14/18at 13:52; Admin Dose 6 MG; Start 07/11/18 at 18:00 Naloxone HCl (Narcan) 0.2 mg Q2M PRN IV SHORTNESS OF BREATH; Start 07/11/18 at 18:00 Albuterol/ Ipratropium (Duoneb) 3 ml Q6H RESP THERAPY PRN HHN SHORTNESS OF BREATH; Start 07/12/18 at 14:30 Acetaminophen (Tylenol Tab) 650 mg Q6H PRN PO ELEVATED TEMPERATURE; Start 07/12/18 at 17:00 Acetaminophen/ Hydrocodone Bitart ([place] (10/325)) 1 tab Q4H PRN PO MODERATE TO SEVERE PAIN Last administered on 07/14/18at 12:03; Admin Dose 1 TAB; Start 07/12/18 at 17:00 Ketorolac Tromethamine (Toradol) 30 mg Q6H PRN IV PAIN LEVEL 4-7 Last administered on 07/13/18at 18:47; Admin Dose 30 MG; Start 07/13/18 at 12:00; Stop 07/16/18 at 11:59 Meds reviewed: Yes Allergies Coded Allergies: No Known Allergy (Unverified , 07/09/18) Allergies Reviewed: Yes Labs/Studies Labs Reviewed: Reviewed by anesthesiologist Result Diagram: 07/13/1843107/13/18431 test: N/A Pre-procedure Exam Last vitals Vital Signs Date Temp Pulse Resp B/P (MAP) Pulse Ox O2 O2 Flow FiO2 Time Delivery Rate 07/14/18 98.2 78 18 105/62 98 07:38 (76) 07/14/18 Room Air 01:45 07/12/18 2.0 17:09 07/12/18 27 01:51 Airway: Adequate mouth opening, Adequate thyromental dist Mallampati: Mallampati II Teeth: Abnormal (poor dentition. denies any loose teeth) Lung: Normal Heart: Normal ASA Physical Status ASA physical status: 2 Emergency: None Planned Anesthetic General/MAC: ETT (glidescope) Planned Pain Management Parenteral pain med Pre-operative Attestations Prior to commencing anesthesia and surgery, the patient was re-evaluated, there was verification of: *The patient's identity *The results of appropriate recent lab work and preoperative vital signs *The above evaluation not changing prior to induction *Anesthetic plan, risk benefits, alternative and complications discussed with patient/family; questions answered; patient/family understands, accepts and wishes to proceed. BEATRIZ ORDONEZ MD Jul 14, 2018 14:59
--- NOTE | 2018-07-14 15:19 | HPN ---
Date/Time of Note Date/Time of Note DATE: 07/14/18 TIME: 15:17 Interval H&P Admission Note Pt. seen H&P reviewed: No system changes Neurosurgery Update note Patient seen and examined Extensive d/w patient regarding all available options including surgery vs no surgery. Pt with residual right L3-4 & L4-5 radiculopathy/numbness/tingling Overall risk/complications 3-5% as preprinted in my office consent form thoroughly discussed. All questions answered and no guarantees given. ADDISON VEAG MD Jul 14, 2018 15:19
[2018-07-14] MEDS ORDERED: PROPOFOL 20 ML ONE ×2 (15:27→17:02)
[2018-07-14] MEDS ORDERED: SUCCINYLCHOLINE CHLORIDE 100 MG/5 ML SYG IV ONE (15:27)
[2018-07-14] MEDS ORDERED: LIDOCAINE 2% (SDV) 5 ML INJ ONE (15:27)
[2018-07-14] MEDS ORDERED: MIDAZOLAM 1 MG/ML 2 ML INJ ONE (15:27)
[2018-07-14] MEDS ORDERED: CEFAZOLIN 1 GM INJ ONE (15:38)
[2018-07-14] MEDS ORDERED: EPHEDrine SULFATE 50 MG/5 ML SYG ONE (15:50)
[2018-07-14] MEDS ORDERED: FAMOTIDINE 20 MG INJ ONE (15:50)
[2018-07-14] MEDS ORDERED: ONDANSETRON 4 MG INJ ONE (15:50)
[2018-07-14] MEDS ORDERED: DEXAMETHASONE 4 MG/ML 5 ML INJ ONE (15:50)
--- NOTE | 2018-07-14 16:18 | PN ---
Date/Time of Note Date/Time of Note DATE: 07/14/18 TIME: 16:13 Assessment/Plan VTE Prophylaxis Risk score (from Ns)>0 risk: 5 SCD applied (from Ns): Yes Pharmacological prophylaxis: NA/contraindicated Pharm contraindication: surgical contra Lines/Catheters IV Catheter Type (from Nrsg): Central Line Central line still needed: Yes Urinary Cath still in place: Yes Reason Cath still needed: urinary retention Assessment/Plan Hospital Course Patient is awake alert continues on SUGAR COATING HAND Dilaudid for pain control. Patient will undergo posterior fixation today. Patient's condition and plan of care discussed with patient and patient's spouse at the bedside. Assessment/Plan -Acute lower back pain with RLE radiculopathy and weakness. Dr. Caldwell is following in neurosurgery consultation. Continue pain management. S/p L2-S1 ALIF by Dr. Caldwell with retroperitoneal exposure by Dr. Carson on 07/11/18. Patient will undergo posterior fixation today. -Tobacco dependence, continue Nicotine patch, cessation advised. Further recommendations based on clinical course. Plan of care discussed with Dr. White. Result Diagram: 07/13/182 07/13/18 0432 Exam/Review of Systems Vital Signs Vitals Vital Signs Date Temp Pulse Resp B/P (MAP) Pulse Ox O2 O2 Flow FiO2 Time Delivery Rate 07/14/18 18 12:00 07/14/18 98.2 78 105/62 98 07:38 (76) 07/14/18 Room Air 01:45 07/12/18 2.0 17:09 07/12/18 27 01:51 Intake and Output 07/13/18 07/13/18 07/14/18 1515:00 23:00 07:00 IntakeIntake Total 300 ml 450 ml OutputOutput Total 2400 ml 900 ml BalanceBalance 300 ml -1950 ml -900 ml Exam Constitutional: alert, oriented Neck: supple Respiratory: normal air movement Cardiovascular: nl pulses Gastrointestinal: soft, non-tender, surgical incision with dressing Musculoskeletal: other (Right lower extremity pain and weakness) Extremities: normal pulses Medications Medications Current Medications Gabapentin (Neurontin) 300 mg BID PO Last administered on 07/13/18at 20:46; Admin Dose 300 MG; Start 07/09/18 at 21:00 Ondansetron HCl (Zofran Inj) 4 mg Q4H PRN IV NAUSEA AND/OR VOMITING; Start 07/09/18 at 17:30 Nicotine (Nicoderm 14 Mg/ 24hr) 1 patch DAILY TRANSDERM Last administered on 07/13/18at 09:34; Admin Dose 1 PATCH; Start 07/09/18 at 21:00 Hydromorphone HCl (Dilaudid SU[employer]ATING HAND) MG/HR CONTINUOUS RATE ... Q4PCA IV Last administered on 07/14/18at 13:52; Admin Dose 6 MG; Start 07/11/18 at 18:00 Naloxone HCl (Narcan) 0.2 mg Q2M PRN IV SHORTNESS OF BREATH; Start 07/11/18 at 18:00 Albuterol/ Ipratropium (Duoneb) 3 ml Q6H RESP THERAPY PRN HHN SHORTNESS OF BREATH; Start 07/12/18 at 14:30 Acetaminophen (Tylenol Tab) 650 mg Q6H PRN PO ELEVATED TEMPERATURE; Start 07/12/18 at 17:00 Acetaminophen/ Hydrocodone Bitart ([place] (10/325)) 1 tab Q4H PRN PO MODERATE TO SEVERE PAIN Last administered on 07/14/18at 12:03; Admin Dose 1 TAB; Start 07/12/18 at 17:00 Ketorolac Tromethamine (Toradol) 30 mg Q6H PRN IV PAIN LEVEL 4-7 Last administered on 07/13/18at 18:47; Admin Dose 30 MG; Start 07/13/18 at 12:00; Stop 07/16/18 at 11:59 NAVID HYATT Jul 14, 2018 16:18
[2018-07-14] MEDS ORDERED: SUGAMMADEX SODIUM 200 MG/2 ML VIAL IV ONE ×2 (17:02→17:08)
--- NOTE | 2018-07-14 17:31 | OPPN ---
Date/Time of Note Date/Time of Note DATE: 07/14/18 TIME: 17:29 Operative Report Preoperative Diagnosis Mechanical LBP with LE Radiculopathy. Postoperative Diagnosis same Operation/Procedure Performed Right L2-L5 decompression with L2-S1 Interspinous Fusion Surgeon see signature line assistant pressman BRETT Palomo, ACNP-BC Anesthesia: general Estimated blood loss: 10 - 50 ml's Transfusion Required none Specimen L2-S1 Bone & Ligaments Grafts/Implants none Complications none ADDISON VEGA MD Jul 14, 2018 17:30
[2018-07-14] MEDS ORDERED: FENTAnyl 50 MCG/ML VIAL IV PRN ×3 (18:00)
[2018-07-14] MEDS ORDERED: ONDANSETRON 4 MG INJ IV PRN (18:00)
[2018-07-14] MEDS ORDERED: MEPERIDINE 25 MG INJ IV PRN (18:00)
[2018-07-14] MEDS ORDERED: PROCHLORPERAZINE 10 MG INJ IV PRN (18:00)
[2018-07-14] MEDS ORDERED: HYDROmorphONE 1 MG/5 ML IV SYRINGE IV PRN ×3 (18:00)
[2018-07-14] MEDS ORDERED: DIPHENHYDRAMINE 50 MG INJ IV PRN (18:00)
[2018-07-14] MEDS: KETOROLAC 30 MG INJ IV PRN (18:02)
--- NOTE | 2018-07-14 19:18 | CONS ---
Date/Time of Note Date/Time of Note DATE: 07/14/18 TIME: 19:16 Assessment/Plan Assessment/Plan Hospital Course assessment/impression - leukocytosis, probably a reactive (post-operative) process - h/o LBP with RLE radiculopathy due to DJD of lumbosacral joints - s/p anterior retroperitoneal exposure interbody fusion L2-S1 by Dr. Carson and anterior lumbar interbody fusion L2-S1 by Dr. Caldwell on 07/12/2018 - s/p R L2-L5 decompression with L2-S1 interspinous fusion on 07/14/2018 - probable L nephrolithiasis based on CT on 07/12/2018. Pt has no UTI Sx - h/o alcoholism, has been sober for 2.5 years according to Pt - active smoker, smokes one ppd x25 years recommendations - monitor WBC level, temp curve - will panculture if temp >100.4F - Pt's on IV cefazolin for 3 days through 07/16/[address] Caldwell management discussed with Pt, his girlfriend and HENNY Loza Result Diagram: 07/13/18 0432 07/13/18 0432 Consultation Date/Type/Reason Admit Date/Time Jul 09, 2018 at 13:48 Date of Consultation: Jul 14, 2018 Type of Consult ID Reason for Consultation leukocytosis Requesting Provider: ADRYAN MELO of Present Illness This is a 47 yo male with chronic LBP with RLE radiculopathy due to DJD of lumbosacral joints. He is a recovering alcoholic x 2.5 years and an active smoker. The pain of b/l LEs was rated at 10 pre-operatively. Pt failed to respond to non-surgical management. Pt was admitted on 07/09/2018 for surgeries. On 07/12/2018, Pt underwent anterior retroperitoneal exposure interbody fusion L2- S1 by Dr. Carson and anterior lumbar interbody fusion L2-S1 by Dr. Caldwell. CT on 07/12/2018 showed postoperative changes of anterior and interbody fusion, perioperative soft tissue swelling and gas ventral to the lumbar spine, and probable L nephrolithiasis. On 07/14/2018 Pt underwent R L2-L5 decompression with L2-S1 interspinous fusion by Dr. Caldwell. Pt's WBC count has been as follows: 07/09/2018 15.1, 07/10/2018 9.4, 07/12/2018 14.9, 07/13/2018 16.3. His highest temp on the record was 99.8F on 07/12/2018. Pt just returned from the second procedure and is recovering from anesthesia. Pt has no complaints other than post- operative pain. He denies h/o respiratory, GI or problems prior to this admission. Pt is scheduled to receive IV cefazolin for 3 days through 07/16/2018. PADILLA Melo requested ID consultation on this Pt. Constitutional: no complaints Eyes: no complaints ENT: no complaints Respiratory: no complaints Cardiovascular: no complaints Gastrointestinal: no complaints Genitourinary: other (+Silver) Musculoskeletal: back pain, restricted range of motion Skin: no complaints Neurologic: no complaints Past Medical History Medical History: other (h/o alcoholism, smoker) Medications Current Medications Gabapentin (Neurontin) 300 mg BID PO Last administered on 07/13/18at 20:46; Admin Dose 300 MG; Start 07/09/18 at 21:00 Ondansetron HCl (Zofran Inj) 4 mg Q4H PRN IV NAUSEA AND/OR VOMITING; Start 07/09/18 at 17:30 Nicotine (Nicoderm 14 Mg/ 24hr) 1 patch DAILY TRANSDERM Last administered on 07/13/18at 09:34; Admin Dose 1 PATCH; Start 07/09/18 at 21:00 Hydromorphone HCl (Dilaudid SENIOR SCIENCE CONSULTANT) MG/HR CONTINUOUS RATE ... Q4PCA IV Last administered on 07/14/18at 17:57; Admin Dose 6 MG; Start 07/11/18 at 18:00 Naloxone HCl (Narcan) 0.2 mg Q2M PRN IV SHORTNESS OF BREATH; Start 07/11/18 at 18:00 Albuterol/ Ipratropium (Duoneb) 3 ml Q6H RESP THERAPY PRN HHN SHORTNESS OF BREATH; Start 07/12/18 at 14:30 Acetaminophen (Tylenol Tab) 650 mg Q6H PRN PO ELEVATED TEMPERATURE; Start 07/12/18 at 17:00 Acetaminophen/ Hydrocodone Bitart ([place] (10/325)) 1 tab Q4H PRN PO MODERATE TO SEVERE PAIN Last administered on 07/14/18at 12:03; Admin Dose 1 TAB; Start 07/12/18 at 17:00 Ketorolac Tromethamine (Toradol) 30 mg Q6H PRN IV PAIN LEVEL 4-7 Last administered on 07/14/18at 18:02; Admin Dose 30 MG; Start 07/13/18 at 12:00; Stop 07/16/18 at 11:59 Cefazolin Sodium/ Dextrose 50 ml @ 100 mls/hr Q8H IVPB ; Start 07/14/18 at 18:00; Stop 07/16/18 at 17:59 Hydromorphone HCl (Dilaudid) 0.2 mg PACU PRN IV MILD PAIN LEVEL 1-3; Start 07/14/18 at 18:00; Stop 07/14/18 at 22:30 Hydromorphone HCl (Dilaudid) 0.4 mg PACU PRN IV MODERATE PAIN LEVEL 4-6 Last administered on 07/14/18at 18:08; Admin Dose 0.4 MG; Start 07/14/18 at 18:00; Stop 07/14/18 at 22:30 Hydromorphone HCl (Dilaudid) 0.6 mg PACU PRN IV SEVERE PAIN LEVEL 7-10 Last administered on 07/14/18at 18:01; Admin Dose 0.6 MG; Start 07/14/18 at 18:00; Stop 07/14/18 at 22:30 Fentanyl (Sublimaze) 25 mcg PACU ORDER PRN IV MILD PAIN LEVEL 1-3; Start 07/14/18 at 18:00; Stop 07/14/18 at 22:30 Fentanyl (Sublimaze) 50 mcg PACU ORDER PRN IV MODERATE PAIN LEVEL 4-6; Start 07/14/18 at 18:00; Stop 07/14/18 at 22:30 Fentanyl (Sublimaze) 75 mcg PACU ORDER PRN IV SEVERE PAIN LEVEL 7-10; Start 07/14/18 at 18:00; Stop 07/14/18 at 22:30 Ondansetron HCl (Zofran Inj) 4 mg PACU ORDER PRN IV NAUSEA AND/OR VOMITING Last administered on 07/14/18at 18:02; Admin Dose 4 MG; Start 07/14/18 at 18:00; Stop 07/14/18 at 22:30 Prochlorperazine (Compazine Inj) 5 mg PACU ORDER PRN IV NAUSEA AND/OR VOMITING; Start 07/14/18 at 18:00; Stop 07/14/18 at 22:30 Meperidine HCl (Demerol) 25 mg PACU ORDER PRN IV POST OPERATIVE SHIVERING Last administered on 07/14/18at 18:01; Admin Dose 25 MG; Start 07/14/18 at 18:00; Stop 07/14/18 at 22:30 Diphenhydramine HCl (Benadryl) 25 mg PACU ORDER PRN IV PRURITUS Last administered on 07/14/18at 18:14; Admin Dose 25 MG; Start 07/14/18 at 18:00; Stop 07/14/18 at 22:30 Allergies: Coded Allergies: No Known Allergy (Unverified , 07/09/18) Past Surgical History Past Surgical Hx: other (cervical spine surgery) Social History Alcohol Use: sober (x2.5 years according to Pt) Smoking Status: Current every day smoker Drug Use: none Exam/Review of Systems Vital Signs Vitals Vital Signs Date Temp Pulse Resp B/P (MAP) Pulse Ox O2 O2 Flow FiO2 Time Delivery Rate 07/14/18 84 22 107/63 96 Nasal 2.0 19:05 (78) Cannula 07/14/18 98.6 18:40 07/12/18 27 01:51 Intake and Output 07/13/18 07/13/18 07/14/18 1515:00 23:00 07:00 IntakeIntake Total 300 ml 450 ml OutputOutput Total 2400 ml 900 ml BalanceBalance 300 ml -1950 ml -900 ml Exam Constitutional: other (drowsy but arousable) Psych: other (drowsy but arousable) Head: normocephalic, atraumatic Eyes: nl conjunctiva, nl lids, nl sclera ENMT: nl external ears & nose, nl nasal mucosa & septum, mucosa pink and moist Neck: other (not swollen) Respiratory: clear to auscultation, normal air movement Cardiovascular: regular rate and rhythm, nl pulses Gastrointestinal: soft, non-tender; No distended, No tender Genitourinary - Male: other (FC) Musculoskeletal: nl extremities to inspection Extremities: No edema Neurological: lethargic, other (the surgical sites on the L-S spines are well approximated with a ANNA containing serosanguinous fluid) Skin: other (multiple tatoos) Medications Medications Current Medications Gabapentin (Neurontin) 300 mg BID PO Last administered on 07/13/18at 20:46; Admin Dose 300 MG; Start 07/09/18 at 21:00 Ondansetron HCl (Zofran Inj) 4 mg Q4H PRN IV NAUSEA AND/OR VOMITING; Start 07/09/18 at 17:30 Nicotine (Nicoderm 14 Mg/ 24hr) 1 patch DAILY TRANSDERM Last administered on 07/13/18at 09:34; Admin Dose 1 PATCH; Start 07/09/18 at 21:00 Hydromorphone HCl (Dilaudid SENIOR SCIENCE CONSULTANT) MG/HR CONTINUOUS RATE ... Q4PCA IV Last administered on 07/14/18at 17:57; Admin Dose 6 MG; Start 07/11/18 at 18:00 Naloxone HCl (Narcan) 0.2 mg Q2M PRN IV SHORTNESS OF BREATH; Start 07/11/18 at 18:00 Albuterol/ Ipratropium (Duoneb) 3 ml Q6H RESP THERAPY PRN HHN SHORTNESS OF BREATH; Start 07/12/18 at 14:30 Acetaminophen (Tylenol Tab) 650 mg Q6H PRN PO ELEVATED TEMPERATURE; Start 07/12/18 at 17:00 Acetaminophen/ Hydrocodone Bitart ([place] (10/325)) 1 tab Q4H PRN PO MODERATE TO SEVERE PAIN Last administered on 07/14/18at 12:03; Admin Dose 1 TAB; Start 07/12/18 at 17:00 Ketorolac Tromethamine (Toradol) 30 mg Q6H PRN IV PAIN LEVEL 4-7 Last administered on 07/14/18at 18:02; Admin Dose 30 MG; Start 07/13/18 at 12:00; Stop 07/16/18 at 11:59 Cefazolin Sodium/ Dextrose 50 ml @ 100 mls/hr Q8H IVPB ; Start 07/14/18 at 18:00; Stop 07/16/18 at 17:59 Hydromorphone HCl (Dilaudid) 0.2 mg PACU PRN IV MILD PAIN LEVEL 1-3; Start 07/14/18 at 18:00; Stop 07/14/18 at 22:30 Hydromorphone HCl (Dilaudid) 0.4 mg PACU PRN IV MODERATE PAIN LEVEL 4-6 Last administered on 07/14/18at 18:08; Admin Dose 0.4 MG; Start 07/14/18 at 18:00; Stop 07/14/18 at 22:30 Hydromorphone HCl (Dilaudid) 0.6 mg PACU PRN IV SEVERE PAIN LEVEL 7-10 Last administered on 07/14/18 18:01; Admin Dose 0.6 MG; Start 07/14/18 at 18:00; Stop 07/14/18 at 22:30 Fentanyl (Sublimaze) 25 mcg PACU ORDER PRN IV MILD PAIN LEVEL 1-3; Start 07/14/18 at 18:00; Stop 07/14/18 at 22:30 Fentanyl (Sublimaze) 50 mcg PACU ORDER PRN IV MODERATE PAIN LEVEL 4-6; Start 07/14/18 at 18:00; Stop 07/14/18 at 22:30 Fentanyl (Sublimaze) 75 mcg PACU ORDER PRN IV SEVERE PAIN LEVEL 7-10; Start 07/14/18 at 18:00; Stop 07/14/18 at 22:30 Ondansetron HCl (Zofran Inj) 4 mg PACU ORDER PRN IV NAUSEA AND/OR VOMITING Last administered on 07/14/18 18:02; Admin Dose 4 MG; Start 07/14/18 at 18:00; Stop 07/14/18 at 22:30 Prochlorperazine (Compazine Inj) 5 mg PACU ORDER PRN IV NAUSEA AND/OR VOMITING; Start 07/14/18 at 18:00; Stop 07/14/18 at 22:30 Meperidine HCl (Demerol) 25 mg PACU ORDER PRN IV POST OPERATIVE SHIVERING Last administered on 07/14/18 18:01; Admin Dose 25 MG; Start 07/14/18 at 18:00; Stop 07/14/18 at 22:30 Diphenhydramine HCl (Benadryl) 25 mg PACU ORDER PRN IV PRURITUS Last administered on 07/14/18 18:14; Admin Dose 25 MG; Start 07/14/18 at 18:00; Stop 07/14/18 at 22:30 NAM RED M.D. Jul 14, 2018 19:18
[2018-07-15 00:01] VITALS: BP 114/59; PULSE 94; RESP 16
[2018-07-15] MEDS: CEFAZOLIN 2 GM/50 ML (PMX) 50 ML IVPB SCH ×3 (01:26→17:27)
[2018-07-15 03:34] VITALS: BP 105/66; PULSE 85; RESP 16
[2018-07-15 07:31] VITALS: BP 123/80; PULSE 87; RESP 18
[2018-07-15] MEDS: GABAPENTIN 300 MG CAP PO SCH ×2 (08:00→20:10)
[2018-07-15] MEDS: NICOTINE (14 MG/24 HR) PATCH TRANSDERM SCH (08:00)
[2018-07-15] MEDS: KETOROLAC 30 MG INJ IV PRN ×3 (08:00→20:11)
[2018-07-15] MEDS: HYDROmorphONE 0.2 MG/ML PCA IV SCH ×2 (08:10→16:24)
[2018-07-15] MEDS: HYDROCODONE/APAP (10/325) TAB PO PRN ×3 (10:40→20:11)
--- NOTE | 2018-07-15 14:15 | CONS ---
Date/Time of Note Date/Time of Note DATE: 07/15/18 TIME: 14:13 Assessment/Plan Assessment/Plan Hospital Course assessment/impression - leukocytosis, probably a reactive (post-operative) process, improved - h/o LBP with RLE radiculopathy due to DJD of lumbosacral joints - s/p anterior retroperitoneal exposure interbody fusion L2-S1 by Dr. Carson and anterior lumbar interbody fusion L2-S1 by Dr. Caldwell on 07/12/2018 - s/p R L2-L5 decompression with L2-S1 interspinous fusion on 07/14/2018 - probable L nephrolithiasis based on CT on 07/12/2018. Pt has no UTI Sx - h/o alcoholism, has been sober for 2.5 years according to Pt - active smoker, smokes one ppd x25 years recommendations - monitor WBC level, temp curve - will panculture if temp >100.4F - Pt's on IV cefazolin for 3 days through 07/16/[address] Caldwell management discussed with Pt Result Diagram: 07/15/18 0417 07/15/18 0417 Results 24hrs Laboratory Tests Test 07/15/18 04:17 White Blood Count 14.3 H Red Blood Count 3.06 L Hemoglobin 10.1 L Hematocrit 29.3 L Mean Corpuscular Volume 95.8 Mean Corpuscular Hemoglobin 33.0 Mean Corpuscular Hemoglobin Concent 34.5 Red Cell Distribution Width 12.3 Platelet Count 176 Mean Platelet Volume 10.5 H Immature Granulocytes % 1.000 H Neutrophils % 87.8 H Lymphocytes % 6.0 L Monocytes % 5.1 Eosinophils % 0.0 Basophils % 0.1 Nucleated Red Blood Cells % 0.0 Immature Granulocytes # 0.140 H Neutrophils # 12.5 H Lymphocytes # 0.9 Monocytes # 0.7 Eosinophils # 0.0 Basophils # 0.0 Nucleated Red Blood Cells # 0.0 Sodium Level 142 Potassium Level 4.8 Chloride Level 106 Carbon Dioxide Level 27 Anion Gap 9 Blood Urea Nitrogen 16 Creatinine 0.93 Est Glomerular Filtrat Rate mL/min > 60 Glucose Level 109 Calcium Level 9.6 Consultation Date/Type/Reason Admit Date/Time Jul 09, 2018 at 13:48 Initial Consult Date 07/14/18 Type of Consult ID Requesting Provider: SADEORA,ADRYAN 24 HR Interval Summary Constitutional: improved Detailed Summary Eyes: no complaints ENT: no complaints Respiratory: no complaints Cardiovascular: no complaints Gastrointestinal: no complaints Genitourinary: other (FC as just removed) Musculoskeletal: back pain (severe), restricted range of motion Skin: no complaints Neurologic: other (+paresthesia of b/l LEs) Endocrine: no complaints Lymphatic: no complaints Exam/Review of Systems Vital Signs Vitals Vital Signs Date Temp Pulse Resp B/P (MAP) Pulse Ox O2 O2 Flow FiO2 Time Delivery Rate 07/15/18 98.3 87 18 123/80 97 Room Air 07:31 (94) 07/14/18 2.0 23:15 07/12/18 27 01:51 Intake and Output 07/14/18 07/14/18 07/15/18 1515:00 23:00 07:00 IntakeIntake Total 950 ml 850 ml OutputOutput Total 700 ml 305 ml 1580 ml BalanceBalance -700 ml 645 ml -730 ml Exam Constitutional: alert, oriented, well developed Psych: no complaints, nl mood/affect Head: normocephalic, atraumatic Eyes: nl conjunctiva, nl lids, nl sclera ENMT: nl external ears & nose, nl lips & teeth, nl nasal mucosa & septum, mucosa pink and moist Neck: non-tender, other (not swollen) Respiratory: clear to auscultation, normal air movement Cardiovascular: regular rate and rhythm, nl pulses Gastrointestinal: soft, non-tender, other (surgical site of the abdomen is dressed with old blood on the pad); No distended, No tender Musculoskeletal: nl extremities to inspection, other (the surgical site is well approximated, covered) Extremities: No edema Neurological: lethargic Skin: other (+tatoos) Medications Medications Current Medications Gabapentin (Neurontin) 300 mg BID PO Last administered on 07/15/18at 08:00; Admin Dose 300 MG; Start 07/09/18 at 21:00 Ondansetron HCl (Zofran Inj) 4 mg Q4H PRN IV NAUSEA AND/OR VOMITING; Start 07/09/18 at 17:30 Nicotine (Nicoderm 14 Mg/ 24hr) 1 patch DAILY TRANSDERM Last administered on 07/15/18at 08:00; Admin Dose 1 PATCH; Start 07/09/18 at 21:00 Hydromorphone HCl (Dilaudid SEED SPECIALIST) MG/HR CONTINUOUS RATE ... Q4PCA IV Last administered on 07/15/18at 08:10; Admin Dose 6 MG; Start 07/11/18 at 18:00 Naloxone HCl (Narcan) 0.2 mg Q2M PRN IV SHORTNESS OF BREATH; Start 07/11/18 at 18:00 Albuterol/ Ipratropium (Duoneb) 3 ml Q6H RESP THERAPY PRN HHN SHORTNESS OF BREATH; Start 07/12/18 at 14:30 Acetaminophen (Tylenol Tab) 650 mg Q6H PRN PO ELEVATED TEMPERATURE; Start 07/12/18 at 17:00 Acetaminophen/ Hydrocodone Bitart ([place] (10325)) 1 tab Q4H PRN PO MODERATE TO SEVERE PAIN Last administered on 07/15/18at 10:40; Admin Dose 1 TAB; Start 07/12/18 at 17:00 Ketorolac Tromethamine (Toradol) 30 mg Q6H PRN IV PAIN LEVEL 4-7 Last administered on 07/15/18at 08:00; Admin Dose 30 MG; Start 07/13/18 at 12:00; Stop 07/16/18 at 11:59 Cefazolin Sodium/ Dextrose 50 ml @ 100 mls/hr Q8H IVPB Last administered on 07/15/18at 10:46; Admin Dose 100 MLS/HR; Start 07/14/18 at 18:00; Stop 07/16/18 at 17:59 Docusate Sodium (Colace) 100 mg BID PO ; Start 07/15/18 at 21:00 Magnesium Hydroxide (Milk Of Mag) 30 ml BID PRN PO CONSTIPATION; Start 07/15/18 at 11:30 NAM RED M.D. Jul 15, 2018 14:15
--- NOTE | 2018-07-15 16:08 | PN ---
Date/Time of Note Date/Time of Note DATE: 07/15/18 TIME: 16:05 Assessment/Plan VTE Prophylaxis Risk score (from Ns)>0 risk: 3 SCD applied (from Ns): Yes Pharmacological prophylaxis: NA/contraindicated Pharm contraindication: surgical contra Lines/Catheters IV Catheter Type (from Nrsg): Central Line Central line still needed: Yes Urinary Cath still in place: Yes Reason Cath still needed: urinary retention Assessment/Plan Hospital Course Patient is status post posterior fixation yesterday, pain is adequately control led on INDUSTRIAL HEALTH ENGINEER Dilaudid, patient was not able to work with physical therapy. Assessment/Plan -Acute lower back pain with RLE radiculopathy and weakness. S/p L2-S1 ALIF by Dr. Caldwell with retroperitoneal exposure by Dr. Carson on 07/11/18. S/p L2-L5 decompression with L2-S1 Interspinous Fusion on 07/14/[address] Caldwell. Continue pain management. PT with SBO brace. -Tobacco dependence, continue Nicotine patch, cessation advised. Further recommendations based on clinical course. Plan of care discussed with Dr. White. Result Diagram: 07/15/187 07/15/18 0417 Results 24hrs Laboratory Tests Test 07/15/18 04:17 White Blood Count 14.3 H Red Blood Count 3.06 L Hemoglobin 10.1 L Hematocrit 29.3 L Mean Corpuscular Volume 95.8 Mean Corpuscular Hemoglobin 33.0 Mean Corpuscular Hemoglobin Concent 34.5 Red Cell Distribution Width 12.3 Platelet Count 176 Mean Platelet Volume 10.5 H Immature Granulocytes % 1.000 H Neutrophils % 87.8 H Lymphocytes % 6.0 L Monocytes % 5.1 Eosinophils % 0.0 Basophils % 0.1 Nucleated Red Blood Cells % 0.0 Immature Granulocytes # 0.140 H Neutrophils # 12.5 H Lymphocytes # 0.9 Monocytes # 0.7 Eosinophils # 0.0 Basophils # 0.0 Nucleated Red Blood Cells # 0.0 Sodium Level 142 Potassium Level 4.8 Chloride Level 106 Carbon Dioxide Level 27 Anion Gap 9 Blood Urea Nitrogen 16 Creatinine 0.93 Est Glomerular Filtrat Rate mL/min > 60 Glucose Level 109 Calcium Level 9.6 Exam/Review of Systems Vital Signs Vitals Vital Signs Date Temp Pulse Resp B/P (MAP) Pulse Ox O2 O2 Flow FiO2 Time Delivery Rate 07/15/18 98.3 87 18 123/80 97 Room Air 07:31 (94) 07/14/18 2.0 23:15 07/12/18 27 01:51 Intake and Output 07/14/18 07/14/18 07/15/18 1515:00 23:00 07:00 IntakeIntake Total 950 ml 850 ml OutputOutput Total 700 ml 305 ml 1580 ml BalanceBalance -700 ml 645 ml -730 ml Exam Constitutional: alert, oriented Neck: supple Respiratory: normal air movement Cardiovascular: nl pulses Gastrointestinal: soft, non-tender, surgical incision with dressing Musculoskeletal: other (Right lower extremity pain and weakness, lower bach surgical incision, ANNA drain) Extremities: normal pulses Medications Medications Current Medications Gabapentin (Neurontin) 300 mg BID PO Last administered on 07/15/18at 08:00; Admin Dose 300 MG; Start 07/09/18 at 21:00 Ondansetron HCl (Zofran Inj) 4 mg Q4H PRN IV NAUSEA AND/OR VOMITING; Start 07/09/18 at 17:30 Nicotine (Nicoderm 14 Mg/ 24hr) 1 patch DAILY TRANSDERM Last administered on 07/15/18at 08:00; Admin Dose 1 PATCH; Start 07/09/18 at 21:00 Hydromorphone HCl (Dilaudid INDUSTRIAL HEALTH ENGINEER) MG/HR CONTINUOUS RATE ... Q4PCA IV Last administered on 07/15/18at 08:10; Admin Dose 6 MG; Start 07/11/18 at 18:00 Naloxone HCl (Narcan) 0.2 mg Q2M PRN IV SHORTNESS OF BREATH; Start 07/11/18 at 18:00 Albuterol/ Ipratropium (Duoneb) 3 ml Q6H RESP THERAPY PRN HHN SHORTNESS OF BREATH; Start 07/12/18 at 14:30 Acetaminophen (Tylenol Tab) 650 mg Q6H PRN PO ELEVATED TEMPERATURE; Start 07/12/18 at 17:00 Acetaminophen/ Hydrocodone Bitart ([place] (10/325)) 1 tab Q4H PRN PO MODERATE TO SEVERE PAIN Last administered on 07/15/18at 15:46; Admin Dose 1 TAB; Start 07/12/18 at 17:00 Ketorolac Tromethamine (Toradol) 30 mg Q6H PRN IV PAIN LEVEL 4-7 Last administered on 07/15/18at 14:12; Admin Dose 30 MG; Start 07/13/18 at 12:00; Stop 07/16/18 at 11:59 Cefazolin Sodium/ Dextrose 50 ml @ 100 mls/hr Q8H IVPB Last administered on 07/15/18at 10:46; Admin Dose 100 MLS/HR; Start 07/14/18 at 18:00; Stop 07/16/18 at 17:59 Docusate Sodium (Colace) 100 mg BID PO ; Start 07/15/18 at 21:00 Magnesium Hydroxide (Milk Of Mag) 30 ml BID PRN PO CONSTIPATION; Start 07/15/18 at 11:30 NAVID HYATT Jul 15, 2018 16:08
[2018-07-15] MEDS: DOCUSATE SODIUM 100 MG CAP PO SCH (20:11)
[2018-07-15 20:44] VITALS: BP 107/73; PULSE 89; RESP 19
[2018-07-16] MEDS: HYDROmorphONE 0.2 MG/ML PCA IV SCH ×3 (00:02→19:59)
[2018-07-16] MEDS: HYDROCODONE/APAP (10/325) TAB PO PRN ×5 (01:19→22:37)
[2018-07-16] MEDS: CEFAZOLIN 2 GM/50 ML (PMX) 50 ML IVPB SCH ×2 (01:19→09:29)
[2018-07-16] MEDS: KETOROLAC 30 MG INJ IV PRN ×3 (01:19→16:07)
[2018-07-16 02:12] VITALS: BP 116/78; RESP 18
[2018-07-16 07:46] VITALS: BP 118/80; PULSE 81; RESP 18
[2018-07-16] MEDS: GABAPENTIN 300 MG CAP PO SCH ×2 (09:24→20:38)
[2018-07-16] MEDS: DOCUSATE SODIUM 100 MG CAP PO SCH ×2 (09:24→20:38)
[2018-07-16] MEDS: NICOTINE (14 MG/24 HR) PATCH TRANSDERM SCH (09:26)
--- NOTE | 2018-07-16 13:01 | PN ---
Date/Time of Note Date/Time of Note DATE: 07/16/18 TIME: 12:57 Assessment/Plan VTE Prophylaxis Risk score (from Ns)>0 risk: 8 SCD applied (from Ns): Yes SCD contraindicated: low risk/ambulating Pharmacological prophylaxis: NA/contraindicated Pharm contraindication: low risk/ambulating Lines/Catheters [facility] Peripheral IV Central line still needed: No Urinary Cath still in place: No Assessment/Plan Assessment/Plan impression s/p ALIF L2-S1 and Posterior decompression / fusion. doing well voiding well BS present x 4 surgical site: CDI NADINE with minimal drainage Plan dc nadine drain pt/ot with brace okay to shower in 1-2 days pt requesting rehab eval, okay to proceed with Rehab vs Home from NS point of view follow up with Dr. Caldwell in 2 weeks dc factory representative in am and start PRN meds (see orders) dc ancef. Result Diagram: 07/16/18 0456 07/16/18 0456 Results 24hrs Laboratory Tests Test 07/16/18 04:56 White Blood Count 10.0 # Red Blood Count 2.82 L Hemoglobin 9.3 L Hematocrit 27.1 L Mean Corpuscular Volume 96.1 Mean Corpuscular Hemoglobin 33.0 Mean Corpuscular Hemoglobin Concent 34.3 Red Cell Distribution Width 12.4 Platelet Count 199 Mean Platelet Volume 10.1 Immature Granulocytes % 0.700 H Neutrophils % 61.6 Lymphocytes % 25.3 Monocytes % 8.4 Eosinophils % 3.6 Basophils % 0.4 Nucleated Red Blood Cells % 0.0 Immature Granulocytes # 0.070 H Neutrophils # 6.2 Lymphocytes # 2.5 Monocytes # 0.8 Eosinophils # 0.4 Basophils # 0.0 Nucleated Red Blood Cells # 0.0 Sodium Level 139 Potassium Level 3.9 Chloride Level 107 Carbon Dioxide Level 28 Anion Gap 4 L Blood Urea Nitrogen 19 Creatinine 1.14 Est Glomerular Filtrat Rate mL/min > 60 Glucose Level 97 Calcium Level 9.2 Subjective 24 Hr Interval Summary Free Text/Dictation S: NAD Ambulating well with pt/ot able to void denies further LE radic /numbness/tingling Exam/Review of Systems Vital Signs Vitals Vital Signs Date Temp Pulse Resp B/P (MAP) Pulse Ox O2 O2 Flow FiO2 Time Delivery Rate 07/16/18 97.9 81 18 118/80 98 Room Air 07:46 (93) 07/14/18 2.0 23:15 Intake and Output 07/15/18 07/15/18 07/16/18 1515:00 23:00 07:00 IntakeIntake Total 50 ml 850 ml 50 ml OutputOutput Total 490 ml 25 ml BalanceBalance 50 ml 360 ml 25 ml Exam Neurological: other (MS: AAOX4 CN; PERRL , EOMI M: FC x 4 , increasing strength S: no further radic Surgical site: CDI ) Medications Medications Current Medications Gabapentin (Neurontin) 300 mg BID PO Last administered on 07/16/18 09:24; Admin Dose 300 MG; Start 07/09/18 at 21:00 Ondansetron HCl (Zofran Inj) 4 mg Q4H PRN IV NAUSEA AND/OR VOMITING; Start 07/09/18 at 17:30 Nicotine (Nicoderm 14 Mg/ 24hr) 1 patch DAILY TRANSDERM Last administered on 07/16/18 09:26; Admin Dose 1 PATCH; Start 07/09/18 at 21:00 Hydromorphone HCl (Dilaudid PERFORMANCE INSTRUCTOR) MG/HR CONTINUOUS RATE ... Q4PCA IV Last administered on 07/16/18 12:34; Admin Dose 6 MG; Start 07/11/18 at 18:00; Stop 07/17/18 at 12:00 Naloxone HCl (Narcan) 0.2 mg Q2M PRN IV SHORTNESS OF BREATH; Start 07/11/18 at 18:00 Albuterol/ Ipratropium (Duoneb) 3 ml Q6H RESP THERAPY PRN HHN SHORTNESS OF BREATH; Start 07/12/18 at 14:30 Acetaminophen (Tylenol Tab) 650 mg Q6H PRN PO ELEVATED TEMPERATURE; Start 07/12/18 at 17:00 Acetaminophen/ Hydrocodone Bitart ([place] (10/325)) 1 tab Q4H PRN PO MODERATE TO SEVERE PAIN Last administered on 07/16/18 09:24; Admin Dose 1 TAB; Start 07/12/18 at 17:00 Cefazolin Sodium/ Dextrose 50 ml @ 100 mls/hr Q8H IVPB Last administered on 07/16/18 09:29; Admin Dose 100 MLS/HR; Start 07/14/18 at 18:00; Stop 07/16/18 at 17:59 Docusate Sodium (Colace) 100 mg BID PO Last administered on 07/16/18at 09:24; Admin Dose 100 MG; Start 07/15/18 at 21:00 Magnesium Hydroxide (Milk Of Mag) 30 ml BID PRN PO CONSTIPATION; Start 07/15/18 at 11:30 Hydromorphone HCl (Dilaudid) 0.5 mg Q4H PRN IV SEVERE PAIN LEVEL 7-10; Start 07/17/18 at 13:00; Status UNTL BROWN NP Jul 16, 2018 13:01
--- NOTE | 2018-07-16 15:08 | PN ---
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 Dr. Kam is asked to see patient in pain management consultation. Acute rehab eval. Assessment/Plan -Acute lower back pain with RLE radiculopathy and weakness. S/p L2-S1 ALIF by Dr. Caldwell with retroperitoneal exposure by Dr. Carson on 07/11/18. S/p L2-L5 decompression with L2-S1 Interspinous Fusion on 07/14/[address] Caldwell. Continue pain management. PT with SBO brace. -Tobacco dependence, continue Nicotine patch, cessation advised. Further recommendations based on clinical course. Plan of care discussed with Dr. White. Result Diagram: 07/16/18 0456 07/16/18 0456 Results 24hrs Laboratory Tests Test 07/16/18 04:56 White Blood Count 10.0 # Red Blood Count 2.82 L Hemoglobin 9.3 L Hematocrit 27.1 L Mean Corpuscular Volume 96.1 Mean Corpuscular Hemoglobin 33.0 Mean Corpuscular Hemoglobin Concent 34.3 Red Cell Distribution Width 12.4 Platelet Count 199 Mean Platelet Volume 10.1 Immature Granulocytes % 0.700 H Neutrophils % 61.6 Lymphocytes % 25.3 Monocytes % 8.4 Eosinophils % 3.6 Basophils % 0.4 Nucleated Red Blood Cells % 0.0 Immature Granulocytes # 0.070 H Neutrophils # 6.2 Lymphocytes # 2.5 Monocytes # 0.8 Eosinophils # 0.4 Basophils # 0.0 Nucleated Red Blood Cells # 0.0 Sodium Level 139 Potassium Level 3.9 Chloride Level 107 Carbon Dioxide Level 28 Anion Gap 4 L Blood Urea Nitrogen 19 Creatinine 1.14 Est Glomerular Filtrat Rate mL/min > 60 Glucose Level 97 Calcium Level 9.2 Exam/Review of Systems Vital Signs Vitals Vital Signs Date Temp Pulse Resp B/P (MAP) Pulse Ox O2 O2 Flow FiO2 Time Delivery Rate 07/16/18 97.9 81 18 118/80 98 Room Air 07:46 (93) 07/14/18 2.0 23:15 Intake and Output 07/15/18 07/15/18 07/16/18 1515:00 23:00 07:00 IntakeIntake Total 50 ml 850 ml 50 ml OutputOutput Total 490 ml 25 ml BalanceBalance 50 ml 360 ml 25 ml Exam Constitutional: alert, oriented Neck: supple Respiratory: normal air movement Cardiovascular: nl pulses Gastrointestinal: soft, non-tender, surgical incision with dressing Musculoskeletal: other (Right lower extremity pain and weakness, lower bach surgical incision, ANNA drain) Extremities: normal pulses Medications Medications Current Medications Gabapentin (Neurontin) 300 mg BID PO Last administered on 07/16/18 09:24; Admin Dose 300 MG; Start 07/09/18 at 21:00 Ondansetron HCl (Zofran Inj) 4 mg Q4H PRN IV NAUSEA AND/OR VOMITING; Start 07/09/18 at 17:30 Nicotine (Nicoderm 14 Mg/ 24hr) 1 patch DAILY TRANSDERM Last administered on 07/16/18 09:26; Admin Dose 1 PATCH; Start 07/09/18 at 21:00 Hydromorphone HCl (Dilaudid BOX FOLDING MACHINE OPERATOR) MG/HR CONTINUOUS RATE ... Q4PCA IV Last administered on 07/16/18 12:34; Admin Dose 6 MG; Start 07/11/18 at 18:00; Stop 07/17/18 at 12:00 Naloxone HCl (Narcan) 0.2 mg Q2M PRN IV SHORTNESS OF BREATH; Start 07/11/18 at 18:00 Albuterol/ Ipratropium (Duoneb) 3 ml Q6H RESP THERAPY PRN HHN SHORTNESS OF BREATH; Start 07/12/18 at 14:30 Acetaminophen (Tylenol Tab) 650 mg Q6H PRN PO ELEVATED TEMPERATURE; Start 07/12/18 at 17:00 Acetaminophen/ Hydrocodone Bitart ([place] (10/325)) 1 tab Q4H PRN PO MODERATE TO SEVERE PAIN Last administered on 07/16/18 14:12; Admin Dose 1 TAB; Start 07/12/18 at 17:00 Cefazolin Sodium/ Dextrose 50 ml @ 100 mls/hr Q8H IVPB Last administered on 1/9/19at 09:29; Admin Dose 100 MLS/HR; Start 07/14/18 at 18:00; Stop 07/16/18 at 17:59 Docusate Sodium (Colace) 100 mg BID PO Last administered on 07/16/18at 09:24; Admin Dose 100 MG; Start 07/15/18 at 21:00 Magnesium Hydroxide (Milk Of Mag) 30 ml BID PRN PO CONSTIPATION; Start 07/15/18 at 11:30 Hydromorphone HCl (Dilaudid) 0.5 mg Q4H PRN IV SEVERE PAIN LEVEL 7-10; Start 07/17/18 at 13:00 Ketorolac Tromethamine (Toradol) 30 mg Q6H PRN IV PAIN LEVEL 1-3; Start 07/16/18 at 14:30; Stop 07/19/18 at 14:29 Acetaminophen/ Hydrocodone Bitart ([place] (/325)) 2 tab Q4H PRN PO SEVERE PAIN LEVEL 7-10; Start 07/17/18 at 10:00 NAVID HYATT Jul 16, 2018 15:07
[2018-07-16 15:24] VITALS: BP 114/78; PULSE 82; RESP 18
[2018-07-16] MEDS: MAGNESIUM HYDROXIDE 30ML CUP PO PRN (18:33)
--- NOTE | 2018-07-16 19:07 | CONS ---
Date/Time of Note Date/Time of Note DATE: 07/16/18 TIME: 19:05 Assessment/Plan Assessment/Plan Hospital Course assessment/impression - leukocytosis, probably a reactive (post-operative) process, improved - h/o LBP with RLE radiculopathy due to DJD of lumbosacral joints - s/p anterior retroperitoneal exposure interbody fusion L2-S1 by Dr. Carson and anterior lumbar interbody fusion L2-S1 by Dr. Caldwell on 07/12/2018 - s/p R L2-L5 decompression with L2-S1 interspinous fusion on 07/14/2018. ANNA was removed on 07/16/2018 - probable L nephrolithiasis based on CT on 07/12/2018. Pt has no UTI Sx - h/o alcoholism, has been sober for 2.5 years according to Pt - active smoker, smokes one ppd x25 years recommendations - monitor WBC level, temp curve - will panculture if temp >100.4F - Pt's on IV cefazolin for 3 days through 07/16/2018 (today) per Dr. Caldwell management discussed with Pt Result Diagram: 07/16/18 0456 07/16/18 0456 Results 24hrs Laboratory Tests Test 07/16/18 04:56 White Blood Count 10.0 # Red Blood Count 2.82 L Hemoglobin 9.3 L Hematocrit 27.1 L Mean Corpuscular Volume 96.1 Mean Corpuscular Hemoglobin 33.0 Mean Corpuscular Hemoglobin Concent 34.3 Red Cell Distribution Width 12.4 Platelet Count 199 Mean Platelet Volume 10.1 Immature Granulocytes % 0.700 H Neutrophils % 61.6 Lymphocytes % 25.3 Monocytes % 8.4 Eosinophils % 3.6 Basophils % 0.4 Nucleated Red Blood Cells % 0.0 Immature Granulocytes # 0.070 H Neutrophils # 6.2 Lymphocytes # 2.5 Monocytes # 0.8 Eosinophils # 0.4 Basophils # 0.0 Nucleated Red Blood Cells # 0.0 Sodium Level 139 Potassium Level 3.9 Chloride Level 107 Carbon Dioxide Level 28 Anion Gap 4 L Blood Urea Nitrogen 19 Creatinine 1.14 Est Glomerular Filtrat Rate mL/min > 60 Glucose Level 97 Calcium Level 9.2 Consultation Date/Type/Reason Admit Date/Time Jul 09, 2018 at 13:48 Initial Consult Date 07/14/18 Type of Consult ID Requesting Provider: ADRYAN RHODES 24 HR Interval Summary Constitutional: other (pain control was difficult); No febrile Detailed Summary Eyes: no complaints ENT: no complaints Respiratory: no complaints Cardiovascular: no complaints Gastrointestinal: no complaints Genitourinary: no complaints, other (off FC) Musculoskeletal: back pain, restricted range of motion (doing PT) Skin: no complaints Neurologic: focal-weakness Exam/Review of Systems Vital Signs Vitals Vital Signs Date Temp Pulse Resp B/P (MAP) Pulse Ox O2 O2 Flow FiO2 Time Delivery Rate 07/16/18 16 16:00 07/16/18 97.8 82 114/78 98 Room Air 15:24 (90) 07/14/18 2.0 23:15 Intake and Output 07/15/18 07/15/18 07/16/18 1515:00 23:00 07:00 IntakeIntake Total 50 ml 850 ml 50 ml OutputOutput Total 490 ml 25 ml BalanceBalance 50 ml 360 ml 25 ml Exam Constitutional: alert, oriented, well developed Psych: no complaints, nl mood/affect Head: normocephalic, atraumatic Eyes: nl conjunctiva, nl lids, nl sclera ENMT: nl external ears & nose, nl nasal mucosa & septum, mucosa pink and moist Neck: supple, other (not swollen) Respiratory: clear to auscultation, normal air movement Cardiovascular: regular rate and rhythm, nl pulses Gastrointestinal: soft, surgical scars (dressed); No distended Musculoskeletal: nl extremities to inspection, other (well approximated scar in L-S spines) Extremities: normal pulses Neurological: COPYRIGHT MANAGER II-XII intact, nl mental status, nl speech Skin: nl turgor; No rash or lesions Medications Medications Current Medications Gabapentin (Neurontin) 300 mg BID PO Last administered on 07/16/18at 09:24; Admin Dose 300 MG; Start 07/09/18 at 21:00 Ondansetron HCl (Zofran Inj) 4 mg Q4H PRN IV NAUSEA AND/OR VOMITING; Start 07/09/18 at 17:30 Nicotine (Nicoderm 14 Mg/ 24hr) 1 patch DAILY TRANSDERM Last administered on 07/16/18at 09:26; Admin Dose 1 PATCH; Start 07/09/18 at 21:00 Hydromorphone HCl (Dilaudid CHILD AND FAMILY THERAPIST) MG/HR CONTINUOUS RATE ... Q4PCA IV Last administered on 07/16/18 12:34; Admin Dose 6 MG; Start 07/11/18 at 18:00; Stop 07/17/18 at 12:00 Naloxone HCl (Narcan) 0.2 mg Q2M PRN IV SHORTNESS OF BREATH; Start 07/11/18 at 18:00 Albuterol/ Ipratropium (Duoneb) 3 ml Q6H RESP THERAPY PRN HHN SHORTNESS OF BREATH; Start 07/12/18 at 14:30 Acetaminophen (Tylenol Tab) 650 mg Q6H PRN PO ELEVATED TEMPERATURE; Start 07/12/18 at 17:00 Acetaminophen/ Hydrocodone Bitart ([place] (10/325)) 1 tab Q4H PRN PO MODERATE TO SEVERE PAIN Last administered on 07/16/18at 18:34; Admin Dose 1 TAB; Start 07/12/18 at 17:00 Docusate Sodium (Colace) 100 mg BID PO Last administered on 07/16/18at 09:24; Admin Dose 100 MG; Start 07/15/18 at 21:00 Magnesium Hydroxide (Milk Of Mag) 30 ml BID PRN PO CONSTIPATION Last administered on 07/16/18at 18:33; Admin Dose 30 ML; Start 07/15/18 at 11:30 Hydromorphone HCl (Dilaudid) 0.5 mg Q4H PRN IV SEVERE PAIN LEVEL 7-10; Start 07/17/18 at 13:00 Ketorolac Tromethamine (Toradol) 30 mg Q6H PRN IV PAIN LEVEL 1-3 Last administered on 07/16/18at 16:07; Admin Dose 30 MG; Start 07/16/18 at 14:30; Stop 07/19/18 at 14:29 Acetaminophen/ Hydrocodone Bitart ([place] (10/325)) 2 tab Q4H PRN PO SEVERE PAIN LEVEL 7-10; Start 07/17/18 at 10:00 NAM RED M.D. Jul 16, 2018 19:07
[2018-07-16 20:36] VITALS: BP 105/78; PULSE 85; RESP 20
[2018-07-17] MEDS: KETOROLAC 30 MG INJ IV PRN (00:08)
[2018-07-17 02:36] VITALS: BP 102/74; PULSE 80; RESP 17
[2018-07-17 07:33] VITALS: BP 119/67; PULSE 91
[2018-07-17] MEDS: HYDROCODONE/APAP (10/325) TAB PO PRN (07:47)
[2018-07-17] MEDS: DOCUSATE SODIUM 100 MG CAP PO SCH ×2 (08:55→21:02)
[2018-07-17] MEDS: GABAPENTIN 300 MG CAP PO SCH ×2 (08:55→21:02)
[2018-07-17] MEDS: NICOTINE (14 MG/24 HR) PATCH TRANSDERM SCH (08:56)
[2018-07-17] MEDS ORDERED: HYDROCODONE/APAP (10/325) TAB PO PRN (10:00)
[2018-07-17] MEDS ORDERED: HYDROmorphONE 0.5 MG/0.5 ML SYG IV PRN (10:00)
--- NOTE | 2018-07-17 10:11 | CONS ---
Date/Time of Note Date/Time of Note DATE: 07/17/18 TIME: 10:09 Assessment/Plan Assessment/Plan Assessment/Plan Continued pain postop day 3. We will discontinue current Mcgrath increase Dilaudid to 1 mg every 4 as needed breakthrough pain, institute Percocet 5/325 2 tablets q. 4 as needed moderate pain. 3 discontinuing CREDIT REPORTER Withhold the use of any nonsteroidal anti-inflammatory medication Status post L2 S1 a LIF with retroperitoneal exposure status post L2 L5 decompression with L2 S1 fusion We will follow patient is aware of treatment plan. Result Diagram: 07/16/18 0456 07/16/18 0456 Results 24hrs Laboratory Tests Test 07/17/18 08:56 White Blood Count 12.5 #H Red Blood Count 3.16 L Hemoglobin 10.3 L Hematocrit 30.6 L Mean Corpuscular Volume 96.8 Mean Corpuscular Hemoglobin 32.6 Mean Corpuscular Hemoglobin Concent 33.7 Red Cell Distribution Width 12.6 Platelet Count 255 # Mean Platelet Volume 10.4 Immature Granulocytes % 0.700 H Neutrophils % 75.1 Lymphocytes % 14.1 L Monocytes % 5.0 Eosinophils % 4.5 Basophils % 0.6 Nucleated Red Blood Cells % 0.0 Immature Granulocytes # 0.090 H Neutrophils # 9.4 H Lymphocytes # 1.8 Monocytes # 0.6 Eosinophils # 0.6 H Basophils # 0.1 Nucleated Red Blood Cells # 0.0 Consultation Date/Type/Reason Admit Date/Time Jul 09, 2018 at 13:48 Hx of Present Illness This is a 47-year-old gentleman who was admitted to [facility] after having a long-standing history of low back pain. This is not congenital or related to injury, chronic beginning approximately 6 months ago. Patient is status post multiple procedures including epidural lidocaine injections lumbar stimulation, nothing has alleviated his pain and when he developed bilateral lower extremity myopathy patient was scheduled to have a definitive procedure. 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 Pain interferes with all of his activities rated his pain 10/10 now states he has no pain in bilateral lower extremities. With medication his pain is alleviated to 5/10. He has no nausea vomiting dizziness diplopia disorientation associated with it. Prior to hospitalization bilateral lower extremities with lancinating discomfort. Worse when driving and waking up in the morning. As an outpatient also he has been treated with combination of Percocet tramadol Vicodin without alleviation of his discomfort. Additionally he is treated with gabapentin for prolonged period of time without opioids did not alleviate his discomfort. Patient has no test medical history of opioid abuse any recreational street drugs he does smoke he does not drink. 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 There is no family history of congenital musculoskeletal disorders. Patient was on CREDIT REPORTER Dilaudid patient was on CREDIT REPORTER Dilaudid which was discontinued this morning., Current medications include Mcgrath and Dilaudid 0.5 mg every 4 hours as needed breakthrough pain. This does not alleviate his pain and states that his pain is severe in the morning and with minimal movements. He describes his pain as a gnawing discomfort in his bilateral lower back and into his buttocks. Denies any other warning signs states he still has sensation in bilateral lower extremity and pelvis is able to urinate and defecate without difficulty. Denies any incontinence. No recent history of febrile disorder. Constitutional: no complaints, improved Eyes: no complaints ENT: no complaints Respiratory: no complaints Cardiovascular: no complaints Gastrointestinal: no complaints Genitourinary: no complaints Musculoskeletal: no complaints, other (History of present illness) Skin: no complaints Neurologic: no complaints, other (Refer to history of present illness) Endocrine: no complaints Lymphatic: no complaints Psychological: no complaints, nl mood/affect Immunologic: no complaints Past Medical History Medical History: other Medications Current Medications Gabapentin (Neurontin) 300 mg BID PO Last administered on 07/17/18at 08:55; Admin Dose 300 MG; Start 07/09/18 at 21:00 Ondansetron HCl (Zofran Inj) 4 mg Q4H PRN IV NAUSEA AND/OR VOMITING; Start 07/09/18 at 17:30 Nicotine (Nicoderm 14 Mg/ 24hr) 1 patch DAILY TRANSDERM Last administered on 07/17/18at 08:56; Admin Dose 1 PATCH; Start 07/09/18 at 21:00 Hydromorphone HCl (Dilaudid CREDIT REPORTER) MG/HR CONTINUOUS RATE ... Q4PCA IV Last administered on 07/16/18at 19:59; Admin Dose 6 MG; Start 07/11/18 at 18:00; Stop 07/17/18 at 12:00 Naloxone HCl (Narcan) 0.2 mg Q2M PRN IV SHORTNESS OF BREATH; Start 07/11/18 at 18:00 Albuterol/ Ipratropium (Duoneb) 3 ml Q6H RESP THERAPY PRN HHN SHORTNESS OF BREATH; Start 07/12/18 at 14:30 Acetaminophen (Tylenol Tab) 650 mg Q6H PRN PO ELEVATED TEMPERATURE; Start 07/12/18 at 17:00 Acetaminophen/ Hydrocodone Bitart (Mcgrath (10/325)) 1 tab Q4H PRN PO MODERATE TO SEVERE PAIN Last administered on 07/17/18at 07:47; Admin Dose 1 TAB; Start 07/12/18 at 17:00 Docusate Sodium (Colace) 100 mg BID PO Last administered on 07/17/18at 08:55; Admin Dose 100 MG; Start 07/15/18 at 21:00 Magnesium Hydroxide (Milk Of Mag) 30 ml BID PRN PO CONSTIPATION Last administered on 07/16/18at 18:33; Admin Dose 30 ML; Start 07/15/18 at 11:30 Hydromorphone HCl (Dilaudid) 0.5 mg Q4H PRN IV SEVERE PAIN LEVEL 7-10; Start 07/17/18 at 10:00 Acetaminophen/ Hydrocodone Bitart (Mcgrath (10/325)) 2 tab Q4H PRN PO SEVERE PAIN LEVEL 7-10; Start 07/17/18 at 10:00 Allergies: Coded Allergies: No Known Allergy (Unverified , 07/09/18) Past Surgical History Past Surgical Hx: other Social History Alcohol Use: sober Smoking Status: Current every day smoker Drug Use: none Exam/Review of Systems Vital Signs Vitals Vital Signs Date Temp Pulse Resp B/P (MAP) Pulse Ox O2 O2 Flow FiO2 Time Delivery Rate 07/17/18 98.4 91 119/67 100 07:33 (84) 07/17/18 20 04:00 07/17/18 Room Air 02:36 07/14/18 2.0 23:15 Intake and Output 07/16/18 07/16/18 07/17/18 1515:00 23:00 07:00 IntakeIntake Total 50 ml 800 ml 300 ml OutputOutput Total 800 ml 600 ml 500 ml BalanceBalance -750 ml 200 ml -200 ml Exam Constitutional: alert, oriented, well developed, other (No major acute distress) Psych: anxiety Head: normocephalic, atraumatic Eyes: nl conjunctiva, EOMI, nl lids, nl sclera, PERRL; No icteric, No fundi, disc, No other Neck: supple, non-tender; No jvd, No bruits, No masses, No thyromegaly, No nuchal rigidity, No other Neurological: VP PLATFORMS II-XII intact, nl mental status, nl speech, nl strength, other (Normal range of motion bilateral lower extremity ankles with flexion extension inversion and eversion bilateral flexion extension bilateral knees intact extensor hallucis tendon motor 5/5, deferred straight leg examination secondary to continued pain.) Medications Medications Current Medications Gabapentin (Neurontin) 300 mg BID PO Last administered on 07/17/18 08:55; Admin Dose 300 MG; Start 07/09/18 at 21:00 Ondansetron HCl (Zofran Inj) 4 mg Q4H PRN IV NAUSEA AND/OR VOMITING; Start 07/09/18 at 17:30 Nicotine (Nicoderm 14 Mg/ 24hr) 1 patch DAILY TRANSDERM Last administered on 07/17/18 08:56; Admin Dose 1 PATCH; Start 07/09/18 at 21:00 Hydromorphone HCl (Dilaudid CREDIT REPORTER) MG/HR CONTINUOUS RATE ... Q4PCA IV Last administered on 07/16/18 19:59; Admin Dose 6 MG; Start 07/11/18 at 18:00; Stop 07/17/18 at 12:00 Naloxone HCl (Narcan) 0.2 mg Q2M PRN IV SHORTNESS OF BREATH; Start 07/11/18 at 18:00 Albuterol/ Ipratropium (Duoneb) 3 ml Q6H RESP THERAPY PRN HHN SHORTNESS OF BREATH; Start 07/12/18 at 14:30 Acetaminophen (Tylenol Tab) 650 mg Q6H PRN PO ELEVATED TEMPERATURE; Start 07/12/18 at 17:00 Acetaminophen/ Hydrocodone Bitart (Mcgrath (10/325)) 1 tab Q4H PRN PO MODERATE TO SEVERE PAIN Last administered on 07/17/18 07:47; Admin Dose 1 TAB; Start at 17:00 Docusate Sodium (Colace) 100 mg BID PO Last administered on 07/17/18 08:55; Admin Dose 100 MG; Start 07/15/18 at 21:00 Magnesium Hydroxide (Milk Of Mag) 30 ml BID PRN PO CONSTIPATION Last administered on 07/16/18at 18:33; Admin Dose 30 ML; Start 07/15/18 at 11:30 Hydromorphone HCl (Dilaudid) 0.5 mg Q4H PRN IV SEVERE PAIN LEVEL 7-10; Start 07/17/18 at 10:00 Acetaminophen/ Hydrocodone Bitart (Mcgrath ()) 2 tab Q4H PRN PO SEVERE PAIN LEVEL 7-10; Start 07/17/18 at 10:00 AMI LYON Jul 17, 2018 10:11
[2018-07-17] MEDS: OXYCODONE/ACETAMINOPHEN (5/325) TAB PO PRN ×4 (11:03→23:29)
--- NOTE | 2018-07-17 12:46 | PN ---
Date/Time of Note Date/Time of Note DATE: 07/17/18 TIME: 12:45 Assessment/Plan VTE Prophylaxis Risk score (from [facility] [place] risk: 10 SCD applied (from [facility] [place] Yes SCD contraindicated: low risk/ambulating Pharmacological prophylaxis: NA/contraindicated Pharm contraindication: low risk/ambulating Lines/Catheters IV [facility]from [facility] Central Line Central line still needed: No Urinary Cath still in place: No Assessment/Plan Result Diagram: 07/17/18 0856 07/17/18 0856 Results 24hrs Laboratory Tests Test 07/17/18 08:56 White Blood Count 12.5 #H Red Blood Count 3.16 L Hemoglobin 10.3 L Hematocrit 30.6 L Mean Corpuscular Volume 96.8 Mean Corpuscular Hemoglobin 32.6 Mean Corpuscular Hemoglobin Concent 33.7 Red Cell Distribution Width 12.6 Platelet Count 255 # Mean Platelet Volume 10.4 Immature Granulocytes % 0.700 H Neutrophils % 75.1 Lymphocytes % 14.1 L Monocytes % 5.0 Eosinophils % 4.5 Basophils % 0.6 Nucleated Red Blood Cells % 0.0 Immature Granulocytes # 0.090 H Neutrophils # 9.4 H Lymphocytes # 1.8 Monocytes # 0.6 Eosinophils # 0.6 H Basophils # 0.1 Nucleated Red Blood Cells # 0.0 Sodium Level 139 Potassium Level 4.0 Chloride Level 104 Carbon Dioxide Level 27 Anion Gap 8 Blood Urea Nitrogen 15 Creatinine 0.87 Est Glomerular Filtrat Rate mL/min > 60 Glucose Level 139 # Calcium Level 9.8 Exam/Review of Systems Vital Signs Vitals Vital Signs Date Temp Pulse Resp B/P (MAP) Pulse Ox O2 O2 Flow FiO2 Time Delivery Rate 07/17/18 18 08:00 07/17/18 98.4 91 119/67 100 07:33 (84) 07/17/18 Room Air 02:36 07/14/18 2.0 23:15 Intake and Output 07/16/18 07/16/18 07/17/18 1515:00 23:00 07:00 IntakeIntake Total 50 ml 800 ml 300 ml OutputOutput Total 800 ml 600 ml 500 ml BalanceBalance -750 ml 200 ml -200 ml Medications Medications Current Medications Gabapentin (Neurontin) 300 mg BID PO Last administered on 07/17/18at 08:55; Admin Dose 300 MG; Start 07/09/18 at 21:00 Ondansetron HCl (Zofran Inj) 4 mg Q4H PRN IV NAUSEA AND/OR VOMITING; Start 07/09/18 at 17:30 Nicotine (Nicoderm 14 Mg/ 24hr) 1 patch DAILY TRANSDERM Last administered on 07/17/18at 08:56; Admin Dose 1 PATCH; Start 07/09/18 at 21:00 Naloxone HCl (Narcan) 0.2 mg Q2M PRN IV SHORTNESS OF BREATH; Start 07/11/18 at 18:00 Albuterol/ Ipratropium (Duoneb) 3 ml Q6H RESP THERAPY PRN HHN SHORTNESS OF BREATH; Start 07/12/18 at 14:30 Docusate Sodium (Colace) 100 mg BID PO Last administered on 07/17/18at 08:55; Admin Dose 100 MG; Start 07/15/18 at 21:00 Magnesium Hydroxide (Milk Of Mag) 30 ml BID PRN PO CONSTIPATION Last administered on 07/16/18at 18:33; Admin Dose 30 ML; Start 07/15/18 at 11:30 Hydromorphone HCl (Dilaudid) 1 mg Q4H PRN IV SEVERE PAIN LEVEL 7-10; Start 07/17/18 at 10:30 Oxycodone/ Acetaminophen (Percocet (5/ 325)) 2 tab Q4H PRN PO MODERATE PAIN LEVEL 4-6 Last administered on 07/17/18at 11:03; Admin Dose 2 TAB; Start 07/17/18 at 10:30 ADDISON VEGA MD Jul 17, 2018 12:46
[2018-07-17] MEDS: HYDROmorphONE 1 MG/ML SYG IV PRN ×3 (13:16→21:03)
[2018-07-17 13:53] VITALS: BP 136/82; PULSE 83
[2018-07-17 14:00] VITALS: BP 101/56; PULSE 95; RESP 18
--- NOTE | 2018-07-17 17:12 | PN ---
Date/Time of Note Date/Time of Note DATE: 07/17/18 TIME: 17:11 Assessment/Plan VTE Prophylaxis Risk score (from Ns)>0 risk: 10 SCD applied (from Ns): Yes Pharmacological prophylaxis: NA/contraindicated, other Pharm contraindication: surgical contra, other Lines/Catheters IV Catheter Type (from Nrsg): Central Line Central line still needed: Yes Urinary Cath still in place: No Assessment/Plan Hospital Course Patient remains hemodynamically stable works with PT, complains of pain which is adequately controlled on current regimen, pending acute rehab eval. Assessment/Plan -Acute lower back pain with RLE radiculopathy and weakness. S/p L2-S1 ALIF by Dr. Caldwell with retroperitoneal exposure by Dr. Carson on 07/11/18. S/p L2-L5 decompression with L2-S1 Interspinous Fusion on 07/14/[address] Caldwell. Continue pain management. PT with SBO brace. -Tobacco dependence, continue Nicotine patch, cessation advised. Further recommendations based on clinical course. Plan of care discussed with Dr. White. Result Diagram: 07/17/18 0856 07/17/18 0856 Results 24hrs Laboratory Tests Test 07/17/18 08:56 White Blood Count 12.5 #H Red Blood Count 3.16 L Hemoglobin 10.3 L Hematocrit 30.6 L Mean Corpuscular Volume 96.8 Mean Corpuscular Hemoglobin 32.6 Mean Corpuscular Hemoglobin Concent 33.7 Red Cell Distribution Width 12.6 Platelet Count 255 # Mean Platelet Volume 10.4 Immature Granulocytes % 0.700 H Neutrophils % 75.1 Lymphocytes % 14.1 L Monocytes % 5.0 Eosinophils % 4.5 Basophils % 0.6 Nucleated Red Blood Cells % 0.0 Immature Granulocytes # 0.090 H Neutrophils # 9.4 H Lymphocytes # 1.8 Monocytes # 0.6 Eosinophils # 0.6 H Basophils # 0.1 Nucleated Red Blood Cells # 0.0 Sodium Level 139 Potassium Level 4.0 Chloride Level 104 Carbon Dioxide Level 27 Anion Gap 8 Blood Urea Nitrogen 15 Creatinine 0.87 Est Glomerular Filtrat Rate mL/min > 60 Glucose Level 139 # Calcium Level 9.8 Exam/Review of Systems Vital Signs Vitals Vital Signs Date Temp Pulse Resp B/P (MAP) Pulse Ox O2 O2 Flow FiO2 Time Delivery Rate 07/17/18 98.5 95 18 101/56 97 Room Air 14:00 (71) 07/14/18 2.0 23:15 Intake and Output 07/16/18 07/16/18 07/17/18 1515:00 23:00 07:00 IntakeIntake Total 50 ml 800 ml 300 ml OutputOutput Total 800 ml 600 ml 500 ml BalanceBalance -750 ml 200 ml -200 ml Exam Constitutional: alert, oriented Neck: supple Respiratory: normal air movement Cardiovascular: nl pulses Gastrointestinal: soft, non-tender, surgical incision with dressing Musculoskeletal: other (Right lower extremity pain and weakness, lower bach surgical incision, ANNA drain) Extremities: normal pulses Medications Medications Current Medications Gabapentin (Neurontin) 300 mg BID PO Last administered on 07/17/18 08:55; Admin Dose 300 MG; Start 07/09/18 at 21:00 Ondansetron HCl (Zofran Inj) 4 mg Q4H PRN IV NAUSEA AND/OR VOMITING; Start 07/09/18 at 17:30 Nicotine (Nicoderm 14 Mg/ 24hr) 1 patch DAILY TRANSDERM Last administered on 07/17/18at 08:56; Admin Dose 1 PATCH; Start 07/09/18 at 21:00 Naloxone HCl (Narcan) 0.2 mg Q2M PRN IV SHORTNESS OF BREATH; Start 07/11/18 at 18:00 Albuterol/ Ipratropium (Duoneb) 3 ml Q6H RESP THERAPY PRN HHN SHORTNESS OF BREATH; Start 07/12/18 at 14:30 Docusate Sodium (Colace) 100 mg BID PO Last administered on 07/17/18at 08:55; Admin Dose 100 MG; Start 07/15/18 at 21:00 Magnesium Hydroxide (Milk Of Mag) 30 ml BID PRN PO CONSTIPATION Last administered on 07/16/18at 18:33; Admin Dose 30 ML; Start 07/15/18 at 11:30 Hydromorphone HCl (Dilaudid) 1 mg Q4H PRN IV SEVERE PAIN LEVEL 7-10 Last administered on 07/17/18 17:04; Admin Dose 1 MG; Start 07/17/18 at 10:30 Oxycodone/ Acetaminophen (Percocet (5/ 325)) 2 tab Q4H PRN PO MODERATE PAIN LEVEL 4-6 Last administered on 07/17/18at 15:08; Admin Dose 2 TAB; Start 07/17/18 at 10:30 NAVID HYATT Jul 17, 2018 17:12
[2018-07-17 20:03] VITALS: BP 128/85; PULSE 99; RESP 18
[2018-07-18] MEDS: OXYCODONE/ACETAMINOPHEN (5/325) TAB PO PRN ×6 (03:32→23:52)
[2018-07-18 03:35] VITALS: BP 107/78; PULSE 69; RESP 18
[2018-07-18] MEDS: HYDROmorphONE 1 MG/ML SYG IV PRN ×5 (04:49→21:42)
[2018-07-18 07:54] VITALS: BP 106/69; PULSE 75; RESP 18
[2018-07-18] MEDS: DOCUSATE SODIUM 100 MG CAP PO SCH ×2 (09:21→21:41)
[2018-07-18] MEDS: GABAPENTIN 300 MG CAP PO SCH ×2 (09:21→21:42)
[2018-07-18] MEDS: NICOTINE (14 MG/24 HR) PATCH TRANSDERM SCH (09:22)
--- NOTE | 2018-07-18 10:22 | CONS ---
[facility] Name: Rafat [facility] Unit Number: [id number] Date of : 1970 Patient Status: Admitted Inpatient Attending Doctor: Carlos White MD Edit: NAM RODRÍGUEZ M.D. on 07/19/18 @ 23:08 Anne attestation: I discussed the management with CHAIR POST MACHINE OPERATOR Vanessa and agree with her Date/Time of Note Date/Time of Note DATE: 07/18/18 TIME: 10:17 Assessment/Plan Assessment/Plan Hospital Course Assessment/Impression - Leukocytosis, probably a reactive (post-operative) process, improving - H/o LBP with RLE radiculopathy due to DJD of lumbosacral joints - S/p anterior retroperitoneal exposure interbody fusion L2-S1 by Dr. Carson and anterior lumbar interbody fusion L2-S1 by Dr. Caldwell on 07/12/2018 - S/p R L2-L5 decompression with L2-S1 interspinous fusion on 07/14/2018. ANNA was removed on 07/16/2018 - Probable L nephrolithiasis based on CT on 07/12/2018. Pt has no UTI Sx - H/o alcoholism, has been sober for 2.5 years according to Pt - Active smoker, smokes one ppd x25 years Recommendations: - Monitor off abx (s/p cefazolin 07/11/18-07/16/18) - Monitor WBC level, temp curve - Will panculture if temp >100.4F Management discussed with patient and with Dr. Rodríguez. Thank you Result Diagram: 07/18/18 0449 07/18/18448 Results 24hrs Laboratory Tests Test 07/18/18 04:49 White Blood Count 11.2 H Red Blood Count 3.00 L Hemoglobin 9.8 L Hematocrit 29.1 L Mean Corpuscular Volume 97.0 Mean Corpuscular Hemoglobin 32.7 Mean Corpuscular Hemoglobin Concent 33.7 Red Cell Distribution Width 12.5 Platelet Count 263 Mean Platelet Volume 10.0 Immature Granulocytes % 1.400 H Neutrophils % 62.9 Lymphocytes % 23.4 Monocytes % 7.3 Eosinophils % 4.4 Basophils % 0.6 Nucleated Red Blood Cells % 0.0 Immature Granulocytes # 0.160 H Neutrophils # 7.0 Lymphocytes # 2.6 Monocytes # 0.8 Eosinophils # 0.5 Basophils # 0.1 Nucleated Red Blood Cells # 0.0 Sodium Level 136 Potassium Level 4.2 Chloride Level 105 Carbon Dioxide Level 28 Anion Gap 3 L Blood Urea Nitrogen 15 Creatinine 0.94 Est Glomerular Filtrat Rate mL/min > 60 Glucose Level 101 Calcium Level 10.5 H Consultation Date/Type/Reason Admit Date/Time Jul 09, 2018 at 13:48 Initial Consult Date 07/14/18 Reason for Consultation ID Requesting Provider: ADRYAN RHODES 24 HR Interval Summary Free Text/Dictation Patient states that he must adjust his position at least every 5-10 min to rem ain comfortable. Pain up to 8/10. Patient states "I was really shocked when I realized how large my incisions would be, when I went into this I thought they would be smaller. I'm having to get used to the fact that they're so long." He denies SOB, cough, phlegm production, n/v/d, dysuria, pruritis, rash. He does c/o occasional dizziness with oob and ambulation with PT. Constitutional: no complaints Exam/Review of Systems Vital Signs Vitals Vital Signs Date Temp Pulse Resp B/P (MAP) Pulse Ox O2 O2 Flow FiO2 Time Delivery Rate 07/18/18 98.1 75 18 106/69 99 Room Air 07:54 (81) 07/14/18 2.0 23:15 Intake and Output 07/17/18 07/17/18 07/18/18 1515:00 23:00 07:00 OutputOutput Total 1900 ml 1500 ml 400 ml BalanceBalance -1900 ml -1500 ml -400 ml Allergies Coded Allergies No Known Allergy (Unverified07/09/18) Exam Constitutional: alert, oriented, well developed Psych: no complaints, nl mood/affect Head: normocephalic, atraumatic Eyes: nl conjunctiva, nl lids, nl sclera ENMT: nl external ears & nose, nl nasal mucosa & septum, mucosa pink and moist Neck: supple, non-tender Respiratory: clear to auscultation, normal air movement Cardiovascular: regular rate and rhythm, nl pulses Gastrointestinal: soft, other (posterior back surgical incision site, well approximated, no erythema, site is soft, nonttp. Anterior abdomen site covered with cdi abdominal dressing. Dried drainage small amt serosanguinous noted. ) Genitourinary - Male: other (urinal at bedside ) Musculoskeletal: nl extremities to inspection Extremities: normal pulses Neurological: SURVEY RESEARCH TEACHER II-XII intact, nl mental status, nl speech Skin: nl turgor; No rash or lesions Medications Medications Current Medications Gabapentin (Neurontin) 300 mg BID PO Last administered on 07/18/18 09:21; Admin Dose 300 MG; Start 07/09/18 at 21:00 Ondansetron HCl (Zofran Inj) 4 mg Q4H PRN IV NAUSEA AND/OR VOMITING; Start 07/09/18 at 17:30 Nicotine (Nicoderm 14 Mg/ 24hr) 1 patch DAILY TRANSDERM Last administered on 07/18/18 09:22; Admin Dose 1 PATCH; Start 07/09/18 at 21:00 Naloxone HCl (Narcan) 0.2 mg Q2M PRN IV SHORTNESS OF BREATH; Start 07/11/18 at 18:00 Albuterol/ Ipratropium (Duoneb) 3 ml Q6H RESP THERAPY PRN HHN SHORTNESS OF BREATH; Start 07/12/18 at 14:30 Docusate Sodium (Colace) 100 mg BID PO Last administered on 07/18/18 09:21; Admin Dose 100 MG; Start 07/15/18 at 21:00 Magnesium Hydroxide (Milk Of Mag) 30 ml BID PRN PO CONSTIPATION Last administered on 07/16/18 18:33; Admin Dose 30 ML; Start 07/15/18 at 11:30 Hydromorphone HCl (Dilaudid) 1 mg Q4H PRN IV SEVERE PAIN LEVEL 7-10 Last administered on 07/18/18 09:22; Admin Dose 1 MG; Start 07/17/18 at 10:30 Oxycodone/ Acetaminophen (Percocet (5/ 325)) 2 tab Q4H PRN PO MODERATE PAIN LEVEL 4-6 Last administered on 07/18/18at 07:33; Admin Dose 2 TAB; Start 07/17/18 at 10:30 Imaging Imaging CXR 07/17/18 IMPRESSION: 1. Postoperative changes of the posterior fusion of the lumbar spine with fusion of the spinous processes from L1/L2 to L4/L5 inclusive. Hardware is intact and alignment is maintained. 2. Change appearance of the anterior and interbody fusion of L1/L2 to L4-5. There has been interval decrease in degree of prevertebral and paravertebral gas and soft tissue inflammation. ZAK BRANDT CHAIR POST MACHINE OPERATOR Jul 18, 2018 10:22
[2018-07-18 14:00] VITALS: BP 108/66; PULSE 70; RESP 18
--- NOTE | 2018-07-18 14:38 | PN ---
Date/Time of Note Date/Time of Note DATE: 07/18/18 TIME: 14:38 Assessment/Plan VTE Prophylaxis Risk score (from [facility])>0 risk: 1 SCD applied (from [facility]): Yes SCD contraindicated: other Pharmacological prophylaxis: other Pharm contraindication: other Lines/Catheters [facility] Type [facility] Saline Lock Urinary Cath still in place: No Assessment/Plan Result Diagram: 07/18/1844807/18/18448 Results 24hrs Laboratory Tests Test 07/18/18 04:49 White Blood Count 11.2 H Red Blood Count 3.00 L Hemoglobin 9.8 L Hematocrit 29.1 L Mean Corpuscular Volume 97.0 Mean Corpuscular Hemoglobin 32.7 Mean Corpuscular Hemoglobin Concent 33.7 Red Cell Distribution Width 12.5 Platelet Count 263 Mean Platelet Volume 10.0 Immature Granulocytes % 1.400 H Neutrophils % 62.9 Lymphocytes % 23.4 Monocytes % 7.3 Eosinophils % 4.4 Basophils % 0.6 Nucleated Red Blood Cells % 0.0 Immature Granulocytes # 0.160 H Neutrophils # 7.0 Lymphocytes # 2.6 Monocytes # 0.8 Eosinophils # 0.5 Basophils # 0.1 Nucleated Red Blood Cells # 0.0 Sodium Level 136 Potassium Level 4.2 Chloride Level 105 Carbon Dioxide Level 28 Anion Gap 3 L Blood Urea Nitrogen 15 Creatinine 0.94 Est Glomerular Filtrat Rate mL/min > 60 Glucose Level 101 Calcium Level 10.5 H Exam/Review of Systems Vital Signs Vitals Vital Signs Date Temp Pulse Resp B/P (MAP) Pulse Ox O2 O2 Flow FiO2 Time Delivery Rate 07/18/18 98.1 75 18 106/69 99 Room Air 07:54 (81) 07/14/18 2.0 23:15 Intake and Output 07/17/18 07/17/18 07/18/18 1515:00 23:00 07:00 OutputOutput Total 1900 ml 1500 ml 400 ml BalanceBalance -1900 ml -1500 ml -400 ml Medications Medications Current Medications Gabapentin (Neurontin) 300 mg BID PO Last administered on 07/18/18at 09:21; Admin Dose 300 MG; Start 07/09/18 at 21:00 Ondansetron HCl (Zofran Inj) 4 mg Q4H PRN IV NAUSEA AND/OR VOMITING; Start 07/09/18 at 17:30 Nicotine (Nicoderm 14 Mg/ 24hr) 1 patch DAILY TRANSDERM Last administered on 07/18/18 09:22; Admin Dose 1 PATCH; Start 07/09/18 at 21:00 Naloxone HCl (Narcan) 0.2 mg Q2M PRN IV SHORTNESS OF BREATH; Start 07/11/18 at 18:00 Albuterol/ Ipratropium (Duoneb) 3 ml Q6H RESP THERAPY PRN HHN SHORTNESS OF BREATH; Start 07/12/18 at 14:30 Docusate Sodium (Colace) 100 mg BID PO Last administered on 07/18/18 09:21; Admin Dose 100 MG; Start 07/15/18 at 21:00 Magnesium Hydroxide (Milk Of Mag) 30 ml BID PRN PO CONSTIPATION Last administered on 07/16/18 18:33; Admin Dose 30 ML; Start 07/15/18 at 11:30 Hydromorphone HCl (Dilaudid) 1 mg Q4H PRN IV SEVERE PAIN LEVEL 7-10 Last administered on 07/18/18 13:09; Admin Dose 1 MG; Start 07/17/18 at 10:30 Oxycodone/ Acetaminophen (Percocet (5/ 325)) 2 tab Q4H PRN PO MODERATE PAIN LEVEL 4-6 Last administered on 07/18/18 11:45; Admin Dose 2 TAB; Start 07/17/18 at 10:30 ADRYAN RHODES Jul 18, 2018 14:38
[2018-07-18 19:30] VITALS: BP 128/84; PULSE 94; RESP 20
[2018-07-19] MEDS: HYDROmorphONE 1 MG/ML SYG IV PRN ×6 (01:39→22:31)
[2018-07-19 02:25] VITALS: BP 113/73; PULSE 73; RESP 20
[2018-07-19] MEDS: OXYCODONE/ACETAMINOPHEN (5/325) TAB PO PRN ×5 (06:00→21:16)
[2018-07-19 08:22] VITALS: BP 94/58; PULSE 78; RESP 18
[2018-07-19] MEDS: DOCUSATE SODIUM 100 MG CAP PO SCH ×2 (08:37→21:15)
[2018-07-19] MEDS: GABAPENTIN 300 MG CAP PO SCH ×2 (08:37→21:15)
[2018-07-19] MEDS: NICOTINE (14 MG/24 HR) PATCH TRANSDERM SCH (08:38)
--- NOTE | 2018-07-19 11:51 | PN ---
Date/Time of Note Date/Time of Note DATE: 07/19/18 TIME: 11:50 Assessment/Plan VTE Prophylaxis Risk score (from Nsg)>0 risk: 3 SCD applied (from Nsg): Yes Pharmacological prophylaxis: LMWH Lines/Catheters IV Catheter Type (from Nrsg): Central Line Central line still needed: Yes Urinary Cath still in place: No Assessment/Plan Hospital Course -Acute lower back pain with RLE radiculopathy and weakness. S/p L2-S1 ALIF by Dr. Caldwell with retroperitoneal exposure by Dr. Carson on 07/11/18. S/p L2-L5 decompression with L2-S1 Interspinous Fusion on 07/14/[address] Caldwell. Continue pain management. PT with SBO brace. -Tobacco dependence, continue Nicotine patch, cessation advised. Result Diagram: 07/18/189 07/19/18 0430 Results 24hrs Laboratory Tests Test 07/19/18 04:30 Sodium Level 137 Potassium Level 4.2 Chloride Level 104 Carbon Dioxide Level 29 Anion Gap 4 L Blood Urea Nitrogen 16 Creatinine 1.00 Est Glomerular Filtrat Rate mL/min > 60 Glucose Level 99 Calcium Level 10.2 Subjective 24 Hr Interval Summary Free Text/Dictation Patient complain of back spasms Exam/Review of Systems Vital Signs Vitals Vital Signs Date Temp Pulse Resp B/P (MAP) Pulse Ox O2 O2 Flow FiO2 Time Delivery Rate 07/19/18 97.9 78 18 94/58 (70) 100 Room Air 08:22 Intake and Output 07/18/18 07/18/18 07/19/18 1515:00 23:00 07:00 IntakeIntake Total 1320 ml 900 ml 350 ml OutputOutput Total 1101 ml 1051 ml 500 ml BalanceBalance 219 ml -151 ml -150 ml Exam Constitutional: well developed Head: normocephalic, atraumatic Neck: supple Respiratory: diminished breath sounds Cardiovascular: regular rate and rhythm Gastrointestinal: soft, non-tender Extremities: normal pulses Medications Medications Current Medications Gabapentin (Neurontin) 300 mg BID PO Last administered on 07/19/18at 08:37; Admin Dose 300 MG; Start 07/09/18 at 21:00 Ondansetron HCl (Zofran Inj) 4 mg Q4H PRN IV NAUSEA AND/OR VOMITING; Start 07/09/18 at 17:30 Nicotine (Nicoderm 14 Mg/ 24hr) 1 patch DAILY TRANSDERM Last administered on 07/19/18 08:38; Admin Dose 1 PATCH; Start 07/09/18 at 21:00 Naloxone HCl (Narcan) 0.2 mg Q2M PRN IV SHORTNESS OF BREATH; Start 07/11/18 at 18:00 Albuterol/ Ipratropium (Duoneb) 3 ml Q6H RESP THERAPY PRN HHN SHORTNESS OF BREATH; Start 07/12/18 at 14:30 Docusate Sodium (Colace) 100 mg BID PO Last administered on 07/19/18 08:37; Admin Dose 100 MG; Start 07/15/18 at 21:00 Magnesium Hydroxide (Milk Of Mag) 30 ml BID PRN PO CONSTIPATION Last administered on 07/16/18 18:33; Admin Dose 30 ML; Start 07/15/18 at 11:30 Hydromorphone HCl (Dilaudid) 1 mg Q4H PRN IV SEVERE PAIN LEVEL 7-10 Last administered on 07/19/18 10:20; Admin Dose 1 MG; Start 07/17/18 at 10:30 Oxycodone/ Acetaminophen (Percocet (5/ 325)) 2 tab Q4H PRN PO MODERATE PAIN LEVEL 4-6 Last administered on 07/19/18 08:37; Admin Dose 2 TAB; Start 07/17/18 at 10:30 CHRISTOPHER SQUIRES Jul 19, 2018 11:51
[2018-07-19 14:00] VITALS: BP 110/60; PULSE 16; PULSE 64; RESP 18
[2018-07-19] MEDS: MAGNESIUM HYDROXIDE 30ML CUP PO PRN (18:49)
[2018-07-19 19:30] VITALS: BP 104/73; PULSE 74; RESP 20
--- NOTE | 2018-07-19 21:48 | CONS ---
Date/Time of Note Date/Time of Note DATE: 07/19/18 TIME: 21:48 Assessment/Plan Assessment/Plan Hospital Course assessment/impression - leukocytosis, probably a reactive (post-operative) process, improved - h/o LBP with RLE radiculopathy due to DJD of lumbosacral joints - s/p anterior retroperitoneal exposure interbody fusion L2-S1 by Dr. Carson and anterior lumbar interbody fusion L2-S1 by Dr. Caldwell on 07/12/2018 - s/p R L2-L5 decompression with L2-S1 interspinous fusion on 07/14/2018. ANNA was removed on 07/16/2018 - probable L nephrolithiasis based on CT on 07/12/2018. Pt has no UTI Sx - h/o alcoholism, has been sober for 2.5 years according to Pt - active smoker, smokes one ppd x25 years recommendations - monitor WBC level, temp curve. Pt took perioperative IV cefazolin for [address] Caldwell management discussed with Pt, his RN Result Diagram: 07/18/18 0449 07/19/18 0430 Results 24hrs Laboratory Tests Test 07/19/18 04:30 Sodium Level 137 Potassium Level 4.2 Chloride Level 104 Carbon Dioxide Level 29 Anion Gap 4 L Blood Urea Nitrogen 16 Creatinine 1.00 Est Glomerular Filtrat Rate mL/min > 60 Glucose Level 99 Calcium Level 10.2 Consultation Date/Type/Reason Admit Date/Time Jul 09, 2018 at 13:48 Initial Consult Date 07/14/18 Type of Consult ID Requesting Provider: ADRYAN RHODES 24 HR Interval Summary Constitutional: no complaints Detailed Summary Eyes: no complaints ENT: no complaints Respiratory: no complaints Cardiovascular: no complaints Gastrointestinal: no complaints Genitourinary: no complaints Musculoskeletal: back pain Skin: no complaints Neurologic: other (intermittent spasm of lower back) Exam/Review of Systems Vital Signs Vitals Vital Signs Date Temp Pulse Resp B/P (MAP) Pulse Ox O2 O2 Flow FiO2 Time Delivery Rate 07/19/18 98.1 74 20 104/73 97 Room Air 19:30 (83) Intake and Output 07/18/18 07/18/18 07/19/18 1515:00 23:00 07:00 IntakeIntake Total 1320 ml 900 ml 350 ml OutputOutput Total 1101 ml 1051 ml 500 ml BalanceBalance 219 ml -151 ml -150 ml Exam Constitutional: alert, oriented Psych: no complaints, nl mood/affect Head: normocephalic, atraumatic Eyes: nl conjunctiva, nl lids ENMT: nl external ears & nose, nl nasal mucosa & septum, mucosa pink and moist Neck: other (not swollen) Respiratory: clear to auscultation, normal air movement Cardiovascular: regular rate and rhythm, nl pulses Gastrointestinal: soft, non-tender, surgical scars (dressed with old serosanguinous fluid); No distended, No tender Musculoskeletal: nl extremities to inspection, other (well healing scar of the lower back) Extremities: No edema Neurological: NANOTECHNOLOGIST II-XII intact, nl mental status, nl speech Skin: nl turgor; No rash or lesions Medications Medications Current Medications Gabapentin (Neurontin) 300 mg BID PO Last administered on 07/19/18at 21:15; Admin Dose 300 MG; Start 07/09/18 at 21:00 Ondansetron HCl (Zofran Inj) 4 mg Q4H PRN IV NAUSEA AND/OR VOMITING; Start 07/09/18 at 17:30 Nicotine (Nicoderm 14 Mg/ 24hr) 1 patch DAILY TRANSDERM Last administered on 07/19/18at 08:38; Admin Dose 1 PATCH; Start 07/09/18 at 21:00 Naloxone HCl (Narcan) 0.2 mg Q2M PRN IV SHORTNESS OF BREATH; Start 07/11/18 at 18:00 Albuterol/ Ipratropium (Duoneb) 3 ml Q6H RESP THERAPY PRN HHN SHORTNESS OF BREATH; Start 07/12/18 at 14:30 Docusate Sodium (Colace) 100 mg BID PO Last administered on 07/19/18at 21:15; Admin Dose 100 MG; Start 07/15/18 at 21:00 Magnesium Hydroxide (Milk Of Mag) 30 ml BID PRN PO CONSTIPATION Last administered on 07/19/18 18:49; Admin Dose 30 ML; Start 07/15/18 at 11:30 Hydromorphone HCl (Dilaudid) 1 mg Q4H PRN IV SEVERE PAIN LEVEL 7-10 Last administered on 07/19/18 18:49; Admin Dose 1 MG; Start 07/17/18 at 10:30 Oxycodone/ Acetaminophen (Percocet (5/ 325)) 2 tab Q4H PRN PO MODERATE PAIN LEVEL 4-6 Last administered on 07/19/18at 21:16; Admin Dose 2 TAB; Start 07/17/18 at 10:30 NAM RED M.D. Jul 19, 2018 21:48
[2018-07-20] MEDS: OXYCODONE/ACETAMINOPHEN (5/325) TAB PO PRN ×6 (01:10→22:02)
[2018-07-20 02:00] VITALS: BP 98/54; PULSE 74; RESP 16
[2018-07-20] MEDS: HYDROmorphONE 1 MG/ML SYG IV PRN ×6 (02:33→23:06)
[2018-07-20 07:34] VITALS: BP 106/67; PULSE 74; RESP 15
[2018-07-20] MEDS: GABAPENTIN 300 MG CAP PO SCH ×2 (09:33→21:31)
[2018-07-20] MEDS: DOCUSATE SODIUM 100 MG CAP PO SCH ×2 (09:33→21:31)
[2018-07-20] MEDS: NICOTINE (14 MG/24 HR) PATCH TRANSDERM SCH (09:34)
--- NOTE | 2018-07-20 12:25 | PN ---
Date/Time of Note Date/Time of Note DATE: 07/20/18 TIME: 12:24 Assessment/Plan VTE Prophylaxis Risk score (from Nsg)>0 risk: 3 SCD applied (from Nsg): Yes Pharmacological prophylaxis: LMWH Lines/Catheters IV Catheter Type (from Nrsg): Central Line Central line still needed: Yes Urinary Cath still in place: No Assessment/Plan Hospital Course -Acute lower back pain with RLE radiculopathy and weakness. S/p L2-S1 ALIF by Dr. Caldwell with retroperitoneal exposure by Dr. Carson on 07/11/18. S/p L2-L5 decompression with L2-S1 Interspinous Fusion on 07/14/[address] Caldwell. Continue pain management. PT with SBO brace. -Tobacco dependence, continue Nicotine patch, cessation advised. Result Diagram: 07/18/189 07/19/18 0430 Subjective 24 Hr Interval Summary Free Text/Dictation Patient continues to have back pain Exam/Review of Systems Vital Signs Vitals Vital Signs Date Temp Pulse Resp B/P (MAP) Pulse Ox O2 O2 Flow FiO2 Time Delivery Rate 07/20/18 98.0 74 15 106/67 100 Room Air 07:34 (80) Intake and Output 07/19/18 07/19/18 07/20/18 1515:00 23:00 07:00 IntakeIntake Total 1250 ml 500 ml OutputOutput Total 1000 ml 1250 ml BalanceBalance 250 ml -750 ml Exam Constitutional: well developed Head: normocephalic, atraumatic Neck: supple Respiratory: clear to auscultation Cardiovascular: regular rate and rhythm Gastrointestinal: soft, non-tender Extremities: normal pulses Medications Medications Current Medications Gabapentin (Neurontin) 300 mg BID PO Last administered on 07/20/18at 09:33; Admin Dose 300 MG; Start 07/09/18 at 21:00 Ondansetron HCl (Zofran Inj) 4 mg Q4H PRN IV NAUSEA AND/OR VOMITING; Start 07/09/18 at 17:30 Nicotine (Nicoderm 14 Mg/ 24hr) 1 patch DAILY TRANSDERM Last administered on 07/20/18at 09:34; Admin Dose 1 PATCH; Start 07/09/18 at 21:00 Naloxone HCl (Narcan) 0.2 mg Q2M PRN IV SHORTNESS OF BREATH; Start 07/11/18 at 18:00 Albuterol/ Ipratropium (Duoneb) 3 ml Q6H RESP THERAPY PRN HHN SHORTNESS OF BREATH; Start 07/12/18 at 14:30 Docusate Sodium (Colace) 100 mg BID PO Last administered on 07/20/18 09:33; Admin Dose 100 MG; Start 07/15/18 at 21:00 Magnesium Hydroxide (Milk Of Mag) 30 ml BID PRN PO CONSTIPATION Last administered on 07/19/18 18:49; Admin Dose 30 ML; Start 07/15/18 at 11:30 Hydromorphone HCl (Dilaudid) 1 mg Q4H PRN IV SEVERE PAIN LEVEL 7-10 Last administered on 07/20/18 10:57; Admin Dose 1 MG; Start 07/17/18 at 10:30 Oxycodone/ Acetaminophen (Percocet (5/ 325)) 2 tab Q4H PRN PO MODERATE PAIN LEVEL 4-6 Last administered on 07/20/18 09:34; Admin Dose 2 TAB; Start 07/17/18 at 10:30 CHRISTOPHER SQUIRES Jul 20, 2018 12:25
[2018-07-20 14:03] VITALS: BP 110/71; PULSE 79; RESP 14
--- NOTE | 2018-07-20 15:35 | CONS ---
[facility] Name: Rafat Hernandez Unit Number: [id number] Date of : 1970 Patient Status: Admitted Inpatient Attending Doctor: Carlos White MD Edit: NAM RODRÍGUEZ M.D. on 07/21/18 @ 00:54 Anne attestation: I discussed the management with VARNISH REMOVER Vanessa and agree with below Date/Time of Note Date/Time of Note DATE: 07/20/18 TIME: 15:34 Assessment/Plan Assessment/Plan Hospital Course Assessment/Impression: - leukocytosis, probably a reactive (post-operative) process, improving - h/o LBP with RLE radiculopathy due to DJD of lumbosacral joints - s/p anterior retroperitoneal exposure interbody fusion L2-S1 by Dr. Carson and anterior lumbar interbody fusion L2-S1 by Dr. Caldwell on 07/12/2018 - s/p R L2-L5 decompression with L2-S1 interspinous fusion on 07/14/2018. ANNA was removed on 07/16/2018 - probable L nephrolithiasis based on CT on 07/12/2018. Pt has no UTI Sx - h/o alcoholism, has been sober for 2.5 years according to Pt - active smoker, smokes one ppd x25 years Recommendations: - monitor WBC level, temp curve. Pt took perioperative IV cefazolin for [address] Caldwell Management was d/w Patient and with Dr. Rodríguez Thank you Result Diagram: 07/18/18 0449 07/19/18 0430 Consultation Date/Type/Reason Admit Date/Time Jul 09, 2018 at 13:48 Initial Consult Date 07/14/18 Type of Consult ID Requesting Provider: ADRYAN RHODES 24 HR Interval Summary Free Text/Dictation Per d/w patient, he ambulated 1 flight of stairs today and states he was in pain 9/10 afterward. he rec'd pain medication at 1500 and pain decreased to 7-8/10. He denies fevers, chills, night sweats, diarrhea, vomiting, dysuria, pruritis, rash. He feels "bloated" he states but has been passing gas. Feels nauseated after physical therapy d/t pain. Denies numbness or tingling BLE Patient has remained afebrile with no acute issues reported by nursing. Exam/Review of Systems Vital Signs Vitals Vital Signs Date Temp Pulse Resp B/P (MAP) Pulse Ox O2 O2 Flow FiO2 Time Delivery Rate 07/20/18 98.2 79 14 110/71 99 Room Air 14:03 (84) Intake and Output 07/19/18 07/19/18 07/20/18 1515:00 23:00 07:00 IntakeIntake Total 1250 ml 500 ml OutputOutput Total 1000 ml 1250 ml BalanceBalance 250 ml -750 ml Allergies Coded Allergies No Known Allergy (Unverified07/09/18) Exam Constitutional: alert, oriented, well developed Psych: no complaints, nl mood/affect Head: normocephalic, atraumatic Eyes: nl conjunctiva, nl lids, nl sclera ENMT: nl external ears & nose, nl nasal mucosa & septum, mucosa pink and moist (no thrush noted ) Neck: supple, non-tender Respiratory: clear to auscultation, normal air movement Cardiovascular: regular rate and rhythm, nl pulses Gastrointestinal: soft, surgical scars (dressing cdi, with dried serosanguinous drainage. 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 ); No rash or lesions Medications Medications Current Medications Gabapentin (Neurontin) 300 mg BID PO Last administered on 07/20/18at 09:33; Admin Dose 300 MG; Start 07/09/18 at 21:00 Ondansetron HCl (Zofran Inj) 4 mg Q4H PRN IV NAUSEA AND/OR VOMITING; Start 07/09/18 at 17:30 Nicotine (Nicoderm 14 Mg/ 24hr) 1 patch DAILY TRANSDERM Last administered on 07/20/18 09:34; Admin Dose 1 PATCH; Start 07/09/18 at 21:00 Naloxone HCl (Narcan) 0.2 mg Q2M PRN IV SHORTNESS OF BREATH; Start 07/11/18 at 18:00 Albuterol/ Ipratropium (Duoneb) 3 ml Q6H RESP THERAPY PRN HHN SHORTNESS OF BREATH; Start 07/12/18 at 14:30 Docusate Sodium (Colace) 100 mg BID PO Last administered on 07/20/18 09:33; Admin Dose 100 MG; Start 07/15/18 at 21:00 Magnesium Hydroxide (Milk Of Mag) 30 ml BID PRN PO CONSTIPATION Last administered on 07/19/18 18:49; Admin Dose 30 ML; Start 07/15/18 at 11:30 Hydromorphone HCl (Dilaudid) 1 mg Q4H PRN IV SEVERE PAIN LEVEL 7-10 Last administered on 07/20/18 15:14; Admin Dose 1 MG; Start 07/17/18 at 10:30 Oxycodone/ Acetaminophen (Percocet (5/ 325)) 2 tab Q4H PRN PO MODERATE PAIN LEVEL 4-6 Last administered on 07/20/18 13:48; Admin Dose 2 TAB; Start 07/17/18 at 10:30 ZAK BRANDT NP Jul 20, 2018 15:35
[2018-07-20] MEDS ORDERED: HYDROmorphONE 2 MG/ML SYG IV STA (16:28)
--- NOTE | 2018-07-20 16:29 | PN ---
Date/Time of Note Date/Time of Note DATE: 07/20/18 TIME: 16:28 Assessment/Plan VTE Prophylaxis Risk score (from Ns)>0 risk: 3 SCD applied (from Ns): Yes SCD contraindicated: low risk/ambulating Pharmacological prophylaxis: NA/contraindicated Pharm contraindication: low risk/ambulating Lines/Catheters IV [facility]ter Type [facility]from [facility] [place] [employer] Central line still needed: No Urinary Cath still in place: No Assessment/Plan Result Diagram: 07/18/18 0449 07/19/180 Exam/Review of Systems Vital Signs Vitals Vital Signs Date Temp Pulse Resp B/P (MAP) Pulse Ox O2 O2 Flow FiO2 Time Delivery Rate 07/20/18 98.2 79 14 110/71 99 Room Air 14:03 (84) Intake and Output 07/19/18 07/19/18 07/20/18 1515:00 23:00 07:00 IntakeIntake Total 1250 ml 500 ml OutputOutput Total 1000 ml 1250 ml BalanceBalance 250 ml -750 ml Medications Medications Current Medications Gabapentin (Neurontin) 300 mg BID PO Last administered on 07/20/18at 09:33; Admin Dose 300 MG; Start 07/09/18 at 21:00 Ondansetron HCl (Zofran Inj) 4 mg Q4H PRN IV NAUSEA AND/OR VOMITING; Start 07/09/18 at 17:30 Nicotine (Nicoderm 14 Mg/ 24hr) 1 patch DAILY TRANSDERM Last administered on 07/20/18at 09:34; Admin Dose 1 PATCH; Start 07/09/18 at 21:00 Naloxone HCl (Narcan) 0.2 mg Q2M PRN IV SHORTNESS OF BREATH; Start 07/11/18 at 18:00 Albuterol/ Ipratropium (Duoneb) 3 ml Q6H RESP THERAPY PRN HHN SHORTNESS OF BREATH; Start 07/12/18 at 14:30 Docusate Sodium (Colace) 100 mg BID PO Last administered on 07/20/18at 09:33; Admin Dose 100 MG; Start 07/15/18 at 21:00 Magnesium Hydroxide (Milk Of Mag) 30 ml BID PRN PO CONSTIPATION Last administered on 07/19/18at 18:49; Admin Dose 30 ML; Start 07/15/18 at 11:30 Hydromorphone HCl (Dilaudid) 1 mg Q4H PRN IV SEVERE PAIN LEVEL 7-10 Last administered on 07/20/18at 15:14; Admin Dose 1 MG; Start 07/17/18 at 10:30 Oxycodone/ Acetaminophen (Percocet (5/ 325)) 2 tab Q4H PRN PO MODERATE PAIN LEVEL 4-6 Last administered on 07/20/18at 13:48; Admin Dose 2 TAB; Start 07/17/18 at 10:30 TL TORRES NP Jul 20, 2018 16:29
[2018-07-20 20:30] VITALS: BP 116/73; PULSE 81; RESP 19
[2018-07-21] MEDS: OXYCODONE/ACETAMINOPHEN (5/325) TAB PO PRN ×4 (01:52→18:17)
[2018-07-21 02:30] VITALS: BP 115/68; PULSE 74; RESP 19
[2018-07-21] MEDS: HYDROmorphONE 1 MG/ML SYG IV PRN ×4 (03:29→16:26)
[2018-07-21 08:17] VITALS: BP 107/57; PULSE 73; RESP 19
[2018-07-21] MEDS: DOCUSATE SODIUM 100 MG CAP PO SCH (09:23)
[2018-07-21] MEDS: GABAPENTIN 300 MG CAP PO SCH (09:23)
[2018-07-21] MEDS: NICOTINE (14 MG/24 HR) PATCH TRANSDERM SCH (09:25)
--- NOTE | 2018-07-21 11:23 | CONS ---
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 Dilaudid and IV breakthrough pain Patient is roula to opioids Normal neurological findings We will discontinue breakthrough Dilaudid coverage anticipate discharge per patient Saturday or Saturday Result Diagram: 07/18/18 0449 07/19/18 0430 Consultation Date/Type/Reason Admit Date/Time Jul 09, 2018 at 13:48 Past Medical History Medical History: other Medications Current Medications Gabapentin (Neurontin) 300 mg BID PO Last administered on 07/21/18 09:23; Admin Dose 300 MG; Start 07/09/18 at 21:00 Ondansetron HCl (Zofran Inj) 4 mg Q4H PRN IV NAUSEA AND/OR VOMITING; Start 07/09/18 at 17:30 Nicotine (Nicoderm 14 Mg/ 24hr) 1 patch DAILY TRANSDERM Last administered on 07/21/18at 09:25; Admin Dose 1 PATCH; Start 07/09/18 at 21:00 Naloxone HCl (Narcan) 0.2 mg Q2M PRN IV SHORTNESS OF BREATH; Start 07/11/18 at 18:00 Albuterol/ Ipratropium (Duoneb) 3 ml Q6H RESP THERAPY PRN HHN SHORTNESS OF BREATH; Start 07/12/18 at 14:30 Docusate Sodium (Colace) 100 mg BID PO Last administered on 07/21/18 09:23; Admin Dose 100 MG; Start 07/15/18 at 21:00 Magnesium Hydroxide (Milk Of Mag) 30 ml BID PRN PO CONSTIPATION Last administered on 07/19/18 18:49; Admin Dose 30 ML; Start 07/15/18 at 11:30 Hydromorphone HCl (Dilaudid) 1 mg Q4H PRN IV SEVERE PAIN LEVEL 7-10 Last administered on 07/21/18 08:05; Admin Dose 1 MG; Start 07/17/18 at 10:30 Oxycodone/ Acetaminophen (Percocet (5/ 325)) 2 tab Q4H PRN PO MODERATE PAIN LEVEL 4-6 Last administered on 07/21/18 09:24; Admin Dose 2 TAB; Start 07/17/18 at 10:30 Allergies: Coded Allergies: No Known Allergy (Unverified , 07/09/18) Past Surgical History Past Surgical Hx: other Social History Alcohol Use: sober Smoking Status: Current every day smoker Drug Use: none Exam/Review of Systems Vital Signs Vitals Vital Signs Date Temp Pulse Resp B/P (MAP) Pulse Ox O2 O2 Flow FiO2 Time Delivery Rate 07/21/18 98.0 73 19 107/57 99 Room Air 08:17 (74) Intake and Output 07/20/18 07/20/18 07/21/18 1515:00 23:00 07:00 IntakeIntake Total 660 ml 540 ml OutputOutput Total 300 ml 1050 ml BalanceBalance 360 ml -510 ml Exam Constitutional: alert, oriented, well developed 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, nl mental status, nl speech, nl strength Medications Medications Current Medications Gabapentin (Neurontin) 300 mg BID PO Last administered on 07/21/18 09:23; Admin Dose 300 MG; Start 07/09/18 at 21:00 Ondansetron HCl (Zofran Inj) 4 mg Q4H PRN IV NAUSEA AND/OR VOMITING; Start 07/09/18 at 17:30 Nicotine (Nicoderm 14 Mg/ 24hr) 1 patch DAILY TRANSDERM Last administered on 07/21/18 09:25; Admin Dose 1 PATCH; Start 07/09/18 at 21:00 Naloxone HCl (Narcan) 0.2 mg Q2M PRN IV SHORTNESS OF BREATH; Start 07/11/18 at 18:00 Albuterol/ Ipratropium (Duoneb) 3 ml Q6H RESP THERAPY PRN HHN SHORTNESS OF BREATH; Start 07/12/18 at 14:30 Docusate Sodium (Colace) 100 mg BID PO Last administered on 07/21/18 09:23; Admin Dose 100 MG; Start 07/15/18 at 21:00 Magnesium Hydroxide (Milk Of Mag) 30 ml BID PRN PO CONSTIPATION Last administered on 07/19/18 18:49; Admin Dose 30 ML; Start 07/15/18 at 11:30 Hydromorphone HCl (Dilaudid) 1 mg Q4H PRN IV SEVERE PAIN LEVEL 7-10 Last administered on 1/14/19at 08:05; Admin Dose 1 MG; Start 07/17/18 at 10:30 Oxycodone/ Acetaminophen (Percocet (5/ 325)) 2 tab Q4H PRN PO MODERATE PAIN LEVEL 4-6 Last administered on 07/21/18at 09:24; Admin Dose 2 TAB; Start 07/17/18 at 10:30 AMI LYON Jul 21, 2018 11:23
--- NOTE | 2018-07-21 12:42 | CONS ---
Date/Time of Note Date/Time of Note DATE: 07/21/18 TIME: 12:31 Assessment/Plan Assessment/Plan Hospital Course Assessment/Impression: - leukocytosis, probably a reactive (post-operative) process, improving - h/o LBP with RLE radiculopathy due to DJD of lumbosacral joints - s/p anterior retroperitoneal exposure interbody fusion L2-S1 by Dr. Carson and anterior lumbar interbody fusion L2-S1 by Dr. Caldwell on 07/12/2018 - s/p R L2-L5 decompression with L2-S1 interspinous fusion on 07/14/2018. ANNA was removed on 07/16/2018 - probable L nephrolithiasis based on CT on 07/12/2018. Pt has no UTI Sx - h/o alcoholism, has been sober for 2.5 years according to Pt - active smoker, smokes one ppd x25 years Recommendations: - monitor WBC level, temp curve. Pt s/p perioperative IV cefazolin for [address] Caldwell Management was d/w Patient and with Dr. Mancini Thank you Result Diagram: 07/18/18 0449 07/19/18 0430 Consultation Date/Type/Reason Admit Date/Time Jul 09, 2018 at 13:48 Initial Consult Date 07/14/18 Type of Consult ID Requesting Provider: ADRYAN RHODES 24 HR Interval Summary Free Text/Dictation Patient states that he is still having pain in his back and Left abdomen around the incision site. Had PT this am and did stairs again. He denies fevers, chills, night sweats, sob, cp, n/v/d, dysuria, pruritis, rash. States he's eating normally, passing gas, and having "normal" bowel movements. Still feels "bloated" but no changes from yesterday. Exam/Review of Systems Vital Signs Vitals Vital Signs Date Temp Pulse Resp B/P (MAP) Pulse Ox O2 O2 Flow FiO2 Time Delivery Rate 07/21/18 98.0 73 19 107/57 99 Room Air 08:17 (74) Intake and Output 07/20/18 07/20/18 07/21/18 1515:00 23:00 07:00 IntakeIntake Total 660 ml 540 ml OutputOutput Total 300 ml 1050 ml BalanceBalance 360 ml -510 ml Allergies Coded Allergies No Known Allergy (Unverified07/09/18) Exam Constitutional: alert, oriented, well developed Psych: no complaints, nl mood/affect Head: normocephalic, atraumatic Eyes: nl conjunctiva, nl lids, nl sclera ENMT: nl external ears & nose, nl nasal mucosa & septum, mucosa pink and moist (no thrush) Neck: supple, non-tender Respiratory: clear to auscultation (anteriorly, no wheezing), normal air movement Cardiovascular: regular rate and rhythm, nl pulses Gastrointestinal: soft, bowel sounds (normoactive), tender (L midline upper quad and lower quad near incision site. Soft. 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, nl mental status, nl speech, nl strength Skin: nl turgor, other (Back surgical incision site well approximated without drainage and healing.); No rash or lesions Medications Medications Current Medications Gabapentin (Neurontin) 300 mg BID PO Last administered on 07/21/18at 09:23; Admin Dose 300 MG; Start 07/09/18 at 21:00 Ondansetron HCl (Zofran Inj) 4 mg Q4H PRN IV NAUSEA AND/OR VOMITING; Start 07/09/18 at 17:30 Nicotine (Nicoderm 14 Mg/ 24hr) 1 patch DAILY TRANSDERM Last administered on 07/21/18at 09:25; Admin Dose 1 PATCH; Start 07/09/18 at 21:00 Naloxone HCl (Narcan) 0.2 mg Q2M PRN IV SHORTNESS OF BREATH; Start 07/11/18 at 18:00 Albuterol/ Ipratropium (Duoneb) 3 ml Q6H RESP THERAPY PRN HHN SHORTNESS OF BREATH; Start 07/12/18 at 14:30 Docusate Sodium (Colace) 100 mg BID PO Last administered on 07/21/18at 09:23; Admin Dose 100 MG; Start 07/15/18 at 21:00 Magnesium Hydroxide (Milk Of Mag) 30 ml BID PRN PO CONSTIPATION Last administered on 07/19/18 18:49; Admin Dose 30 ML; Start 07/15/18 at 11:30 Hydromorphone HCl (Dilaudid) 1 mg Q4H PRN IV SEVERE PAIN LEVEL 7-10 Last administered on 07/21/18at 12:17; Admin Dose 1 MG; Start 07/17/18 at 10:30 Oxycodone/ Acetaminophen (Percocet (5/ 325)) 2 tab Q4H PRN PO MODERATE PAIN LEVEL 4-6 Last administered on 07/21/18at 09:24; Admin Dose 2 TAB; Start 07/17/18 at 10:30 Imaging Imaging No new imaging. ZAK BRANDT NP Jul 21, 2018 12:42
[2018-07-21] MEDS ORDERED: HYDROmorphONE 2 MG/ML SYG IV STA (13:52)
[2018-07-21] MEDS ORDERED: OXYC-438 PO (15:07)
--- NOTE | 2018-07-27 21:23 | DS ---
Date/Time of Note Date/Time of Note DATE: 07/27/18 TIME: 21:21 Discharge Summary Admission/Discharge Info Admit Date/Time Jul 09, 2018 at 13:48 Discharge Date/Time Jul 21, 2018 at 20:30 Patient Condition: Stable Hx of Present Illness Patient is 47-year-old male with acute on chronic low back pain over the last 2 years. Patient was seen by Dr. Caldwell in the office due to worsening of symptoms with developing weakness in bilateral lower extremities with numbness and a little low back pain radiating to right lower extremities. Patient failed conservative treatment with steroid injection cryotherapy. Patient will be adm itted for pain management and will undergo lumbosacral laminectomy. Patient denies any bowel or urinary incontinence. Patient is an every day smoker. Hospital Course Patient d/major home with PT services. -Acute lower back pain with RLE radiculopathy and weakness. S/p L2-S1 ALIF by Dr. Caldwell with retroperitoneal exposure by Dr. Carson on 07/11/18. S/p L2-L5 decompression with L2-S1 Interspinous Fusion on 07/14/[address] Caldwell. Continue pain management. PT with SBO brace. -Tobacco dependence, continue Nicotine patch, cessation advised. Plan of care discussed with Dr. White. Home Meds Active Scripts Oxycodone HCl/Acetaminophen (Oxycodone-Acetaminophen 5-325) 1 Each Tablet, 2 TAB PO Q4H PRN for MODERATE PAIN LEVEL 4-6, #30 TAB Prov:NAVID HYATT 07/21/18 Reported Medications Cyclobenzaprine Hcl* (Cyclobenzaprine Hcl*) 10 Mg Tablet, 10 MG PO QHS, #90 TAB 07/09/18 Trazodone Hcl* (Trazodone Hcl*) 150 Mg Tablet, 150 MG PO QHS, #30 TAB 07/09/18 Gabapentin* (Gabapentin*) 300 Mg Capsule, 300 MG PO Q6, #60 CAP 07/09/18 Follow-up Plan Discharge home with home health PT services, continue to wear lumbar brace when out of bed, follow-up with Dr. Caldwell in 2 weeks Primary Care Provider Care Physician No Primary Time spent on discharge: > 30 minutes NAVID HYATT Jul 27, 2018 21:23
== END 2018-07-21 20:30 | disposition home health service (06) | DRG 455 ==
LOC: FTE 10:23 → 2NE 13:48 → ICU 07-11 18:00 → MS1 07-12 15:32
PROVIDERS: ADMIT Internal Medicine; ATTEND Internal Medicine
PROC: 0SG30A0 Fusion of Lumbosacral Joint with Interbody Fusion Device, Anterior Approach, Anterior Column, Open Approach (ICD-10-PCS; 2018-07-11)
PROC: 0SB20ZZ Excision of Lumbar Vertebral Disc, Open Approach (ICD-10-PCS; 2018-07-11)
PROC: 0SB40ZZ Excision of Lumbosacral Disc, Open Approach (ICD-10-PCS; 2018-07-11)
PROC: 0SG10A0 Fusion of 2 or more Lumbar Vertebral Joints with Interbody Fusion Device, Anterior Approach, Anterior Column, Open Approach (ICD-10-PCS; principal; 2018-07-11 16:00)
PROC: 0SG10J1 Fusion of 2 or more Lumbar Vertebral Joints with Synthetic Substitute, Posterior Approach, Posterior Column, Open Approach (ICD-10-PCS; 2018-07-14)
PROC: 0SG30J1 Fusion of Lumbosacral Joint with Synthetic Substitute, Posterior Approach, Posterior Column, Open Approach (ICD-10-PCS; 2018-07-14)
PROC: 01NB0ZZ Release Lumbar Nerve, Open Approach (ICD-10-PCS; 2018-07-14)
DX: M51.16 Intervertebral disc disorders with radiculopathy, lumbar region (principal); M51.17 Intervertebral disc disorders with radiculopathy, lumbosacral region; D72.828 Other elevated white blood cell count; E88.2 Lipomatosis, not elsewhere classified; F17.200 Nicotine dependence, unspecified, uncomplicated; G89.18 Other acute postprocedural pain; M71.38 Other bursal cyst, other site; M54.5 Low back pain; N20.0 Calculus of kidney; R53.1 Weakness; F10.21 Alcohol dependence, in remission
CPT/HCPCS: 36415; 71045; 72110; 72114; 72131; 80048; 80053; 81001; 81003; 83605; 84145; 85014; 85018; 85025; 85610; 85730; 86850; 86900; 86901; 86920; 87040; 87081; 87086; 88304; 88311; 93005; 94664; 96374; 97116; 97162; 97164; 97530; C1762; J0690; J1100; J1170; J1200; J1644; J1885; J2175; J2250; J2270; J2405; J2765; J2795; J3010; J3480; L0639

== ENCOUNTER 2019-02-03 08:40 | Inpatient (IN) | payer OTHER ==
[~2019-02-03] VITALS: Ht 170.2 cm; Wt 68.2 kg
[~2019-02-03 08:40] MED LIST: CYCL10TA7 PO; GABA300C16 PO; HYDR-3980 PO; IBUP-1982 PO; METH750T2 PO; OXYC-438 PO; TRAZ150T65 PO
[2019-02-03] MEDS ORDERED: ONDANSETRON 4 MG INJ IV STA (08:56)
[2019-02-03] MEDS ORDERED: morphine 4 MG/ML VIAL IV STA (08:56)
[2019-02-03] MEDS ORDERED: HYDROmorphONE 2 MG/ML SYG IV STA ×2 (09:34→11:31)
[2019-02-03] MEDS ORDERED: ACETAMINOPHEN 325 MG TAB PO PRN (10:00)
[2019-02-03] MEDS ORDERED: ONDANSETRON 4 MG INJ IV PRN (10:00)
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
[2019-02-03 12:00] VITALS: BP 135/72; PULSE 84; RESP 18
[2019-02-03] MEDS ORDERED: morphine 2 MG INJ IV PRN (13:00)
[2019-02-03] MEDS: morphine 2 MG INJ IV PRN ×5 (14:54→23:03)
[2019-02-03] MEDS: HYDROCODONE/APAP (10/325) TAB PO PRN ×2 (15:58→21:55)
[2019-02-03 20:14] VITALS: BP 126/75; PULSE 56; RESP 18
[2019-02-04] VITALS (33 sets, daily range): BP systolic 93–139; BP diastolic 51–106; PULSE 49–98; RESP 15–40
[2019-02-04] MEDS: morphine 2 MG INJ IV PRN ×7 (01:05→13:28)
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
[2019-02-04] MEDS: NICOTINE (21 MG/24 HR) PATCH TRANSDERM SCH (13:28)
[2019-02-04] MEDS ORDERED: POLYMYXIN/BACITRACIN 1L IRRIG ONE (14:45)
[2019-02-04] MEDS ORDERED: GELATIN SIZE 100 SPONGE ONE (14:45)
[2019-02-04] MEDS ORDERED: THROMBIN 5000 UNIT (RECOTHROM) VIAL ONE (14:45)
[2019-02-04] MEDS ORDERED: ROPIVACAINE 0.5 % 30 ML VIAL ONE (14:45)
--- NOTE | 2019-02-04 15:04 | PREAC ---
Date/Time of Note Date/Time of Note DATE: 02/04/19 TIME: 15:03 Anesthesia Eval and Record Evaluation Time Pre-Procedure Interview DATE: 02/04/19 TIME: 15:03 Age 48 Sex male NPO: 8 hrs Preoperative diagnosis Lumbar ddd Planned procedure Laminectomy Past Medical History Past Medical History: Includes Cardio: HTN Psych: Anxiety Surgery & Anesthesia Issues No known issue Meds Anticoagulation: No Beta Sheldon within 24 hr: No Reason Beta Sheldon not given: Pt. not on B-Sheldon Reported Medications Ibuprofen* (Ibuprofen*) 200 Mg Capsule, 800 MG PO BID, CAP 02/03/19 Hydrocodone/Acetaminophen ([place] 10-325 Tablet) 1 Each Tablet, 1 EACH PO Q6H, TAB 02/03/19 Gabapentin* (Gabapentin*) 300 Mg Capsule, 300 MG PO TID, #90 CAP 02/03/19 Methocarbamol* (Methocarbamol*) 750 Mg Tablet, 750 MG PO TID, TAB 02/03/19 Discontinued Reported Medications Cyclobenzaprine Hcl* (Cyclobenzaprine Hcl*) 10 Mg Tablet, 10 MG PO QHS, #90 TAB 07/09/18 Trazodone Hcl* (Trazodone Hcl*) 150 Mg Tablet, 150 MG PO QHS, #30 TAB 07/09/18 Gabapentin* (Gabapentin*) 300 Mg Capsule, 300 MG PO Q6, #60 CAP 07/09/18 Discontinued Scripts Oxycodone HCl/Acetaminophen (Oxycodone-Acetaminophen 5-325) 1 Each Tablet, 2 TAB PO Q4H PRN for MODERATE PAIN LEVEL 4-6, #30 TAB Prov:LIZBET HYATTLANA 07/21/18 Current Medications Morphine Sulfate (morphine) 2 mg Q2H PRN IV SEVERE PAIN LEVEL 7-10 Last administered on 02/04/19at 13:28; Admin Dose 2 MG; Start 02/03/19 at 15:00 Acetaminophen/ Hydrocodone Bitart ([place] (10/325)) 1 tab Q4H PRN PO MODERATE PAIN LEVEL 4-6 Last administered on 02/03/19at 21:55; Admin Dose 1 TAB; Start 02/03/19 at 15:00 Nicotine (Nicoderm 21 Mg/ 24hr) 1 patch DAILY TRANSDERM Last administered on 02/04/19at 13:28; Admin Dose 1 PATCH; Start 02/04/19 at 12:30 Meds reviewed: Yes Allergies Coded Allergies: No Known Allergy (Unverified , 02/03/19) Allergies Reviewed: Yes Labs/Studies Labs Reviewed: Reviewed by anesthesiologist Result Diagram: 02/03/1990302/03/19903 test: N/A Studies: ECG Pre-procedure Exam Last vitals Vital Signs Date Temp Pulse Resp B/P (MAP) Pulse Ox O2 O2 Flow FiO2 Time Delivery Rate 02/04/19 97.9 57 15 103/68 100 Room Air 07:28 (80) Airway: Adequate mouth opening, Adequate thyromental dist Mallampati: Mallampati II Teeth: Normal Lung: Normal Heart: Normal ASA Physical Status ASA physical status: 2 Emergency: None Planned Anesthetic General/MAC: ETT Pre-operative Attestations Prior to commencing anesthesia and surgery, the patient was re-evaluated, there was verification of: *The patient's identity *The results of appropriate recent lab work and preoperative vital signs *The above evaluation not changing prior to induction *Anesthetic plan, risk benefits, alternative and complications discussed with patient/family; questions answered; patient/family understands, accepts and wishes to proceed. CARISSA DELGADO Feb 04, 2019 15:04
[2019-02-04] MEDS ORDERED: LIDOCAINE 2% (SDV) 5 ML INJ ONE (15:13)
[2019-02-04] MEDS ORDERED: MIDAZOLAM 1 MG/ML 2 ML INJ ONE (15:13)
[2019-02-04] MEDS ORDERED: FENTAnyl 50 MCG/ML VIAL ONE (15:13)
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
[2019-02-04] MEDS ORDERED: HYDROmorphONE 1 MG/5 ML IV SYRINGE IV PRN ×3 (15:30)
[2019-02-04] MEDS ORDERED: METOCLOPRAMIDE 10 MG INJ IV PRN (15:30)
[2019-02-04] MEDS ORDERED: DIPHENHYDRAMINE 50 MG INJ IV PRN (15:30)
[2019-02-04] MEDS ORDERED: ALBUTEROL 0.083% (NEB) 2.5 MG/3 ML AMP HHN PRN (15:30)
[2019-02-04] MEDS ORDERED: FENTAnyl 50 MCG/ML VIAL IV PRN ×2 (15:30)
[2019-02-04] MEDS ORDERED: ONDANSETRON 4 MG INJ IV PRN (15:30)
[2019-02-04] MEDS ORDERED: MEPERIDINE 25 MG INJ IV PRN (15:30)
[2019-02-04] MEDS ORDERED: SUGAMMADEX SODIUM 200 MG/2 ML VIAL IV ONE (16:23)
[2019-02-04] MEDS ORDERED: ROCURONIUM 50 MG INJ ONE (16:23)
[2019-02-04] MEDS ORDERED: PROPOFOL 20 ML ONE (16:23)
[2019-02-04] MEDS ORDERED: SUCCINYLCHOLINE CHLORIDE 100 MG/5 ML SYG IV ONE (16:23)
[2019-02-04] MEDS ORDERED: CEFAZOLIN 1 GM INJ ONE (16:23)
--- NOTE | 2019-02-04 17:49 | OPPN ---
Date/Time of Note Date/Time of Note DATE: 02/04/19 TIME: 17:45 Operative Report Preoperative Diagnosis L3 spinous process fracture Postoperative Diagnosis Same Operation/Procedure Performed Removal L3 spinous process fracture Removal L2-S1 ISF Device (U&I) Surgeon see signature line starch treating assistant BRETT Palomo, ACNP-BC Anesthesia: general Estimated blood loss: 10 - 50 ml's Transfusion Required none Specimen L3 broken bone L2-S1 ISF Grafts/Implants none Complications none ADDISON VEGA MD Feb 04, 2019 17:49
[2019-02-04] MEDS: FENTAnyl 50 MCG/ML VIAL IV PRN ×2 (17:56→18:05)
[2019-02-04] MEDS ORDERED: HYDROmorphONE 0.2 MG/ML PCA IV SCH ×3 (18:00→18:27)
[2019-02-04] MEDS ORDERED: CEFAZOLIN 2 GM/50 ML (PMX) 50 ML IVPB SCH ×2 (18:00→18:30)
[2019-02-04] MEDS: HYDROmorphONE 0.2 MG/ML PCA IV SCH (21:18)
[2019-02-05 00:05] VITALS: BP 93/54; PULSE 75; RESP 18
[2019-02-05] MEDS: CEFAZOLIN 2 GM/50 ML (PMX) 50 ML IVPB SCH ×4 (00:53→23:43)
[2019-02-05] MEDS: HYDROmorphONE 0.2 MG/ML PCA IV SCH ×7 (01:36→21:55)
--- NOTE | 2019-02-05 07:31 | PAC ---
Date/Time of Note Date/Time of Note DATE: 02/05/19 TIME: 07:30 Post-Anesthesia Notes Post-Anesthesia Note Last documented vital signs Vital Signs Date Temp Pulse Resp B/P (MAP) Pulse Ox O2 O2 Flow FiO2 Time Delivery Rate 02/05/19 18 03:00 02/05/19 98.1 75 93/54 (67) 98 00:05 02/04/19 Room Air 21:50 02/04/19 8.0 18:02 Activity: WNL Respiratory function: WNL Cardiovascular function: WNL Mental status: Baseline Pain reasonably controlled: Yes Hydration appropriate: Yes Nausea/Vomiting absent: Yes CARISSA DELGADO Feb 05, 2019 07:31
[2019-02-05 07:37] VITALS: BP 93/47; PULSE 91; RESP 16
[2019-02-05] MEDS: NICOTINE (21 MG/24 HR) PATCH TRANSDERM SCH (09:32)
[2019-02-05] MEDS: HYDROmorphONE 0.5 MG/0.5 ML SYG IV PRN ×4 (11:17→21:52)
[2019-02-05 14:19] VITALS: BP 100/70; PULSE 85; RESP 17
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
[2019-02-05 19:50] VITALS: BP 111/68; PULSE 82; RESP 18
[2019-02-05] MEDS: KETOROLAC 30 MG INJ IV PRN (20:00)
[2019-02-05] MEDS: POLYETHYLENE GLYCOL 17 GM PACKET PO SCH (21:44)
[2019-02-05] MEDS: GABAPENTIN 300 MG CAP PO SCH (22:56)
[2019-02-05] MEDS: METHOCARBAMOL 750 MG TAB PO SCH (22:56)
[2019-02-06] MEDS: HYDROmorphONE 0.2 MG/ML PCA IV SCH ×5 (01:40→19:46)
[2019-02-06] MEDS: HYDROmorphONE 0.5 MG/0.5 ML SYG IV PRN ×4 (01:43→11:45)
[2019-02-06 03:02] VITALS: BP 110/69; PULSE 77; RESP 18
[2019-02-06 07:32] VITALS: BP 115/74; PULSE 75; RESP 19
[2019-02-06] MEDS: CEFAZOLIN 2 GM/50 ML (PMX) 50 ML IVPB SCH (07:46)
[2019-02-06] MEDS: POLYETHYLENE GLYCOL 17 GM PACKET PO SCH (07:51)
[2019-02-06] MEDS: METHOCARBAMOL 750 MG TAB PO SCH ×3 (08:33→21:16)
[2019-02-06] MEDS: GABAPENTIN 300 MG CAP PO SCH ×3 (08:35→21:16)
[2019-02-06] MEDS ORDERED: METHOCARBAMOL 750 MG TAB PO SCH (09:00)
[2019-02-06] MEDS ORDERED: GABAPENTIN 300 MG CAP PO SCH (09:00)
[2019-02-06] MEDS: NICOTINE (21 MG/24 HR) PATCH TRANSDERM SCH (11:03)
[2019-02-06] MEDS: KETOROLAC 30 MG INJ IV PRN (13:18)
--- NOTE | 2019-02-06 14:45 | PN ---
Date/Time of Note Date/Time of Note DATE: 02/06/19 TIME: 14:44 Assessment/Plan VTE Prophylaxis Risk score (from Nsg)>0 risk: 3 SCD applied (from Nsg): Yes Pharmacological prophylaxis: LMWH Lines/Catheters IV Catheter Type (from Nrsg): Peripheral IV Urinary Cath still in place: No Assessment/Plan Hospital Course 1) back pain, fractures in spinous process of back - to have surgical repair - pain medication Result Diagram: 02/06/19 0453 02/06/19 0453 Results 24hrs Laboratory Tests Test 02/06/19 04:53 White Blood Count 10.0 Red Blood Count 3.77 #L Hemoglobin 12.4 L Hematocrit 37.1 #L Mean Corpuscular Volume 98.4 Mean Corpuscular Hemoglobin 32.9 Mean Corpuscular Hemoglobin Concent 33.4 Red Cell Distribution Width 12.8 Platelet Count 199 # Mean Platelet Volume 10.6 H Immature Granulocytes % 0.300 Neutrophils % 65.2 Lymphocytes % 20.2 Monocytes % 11.5 H Eosinophils % 2.4 Basophils % 0.4 Nucleated Red Blood Cells % 0.0 Immature Granulocytes # 0.030 Neutrophils # 6.5 Lymphocytes # 2.0 Monocytes # 1.2 H Eosinophils # 0.2 Basophils # 0.0 Nucleated Red Blood Cells # 0.0 Sodium Level 139 Potassium Level 3.8 Chloride Level 103 Carbon Dioxide Level 32 H Anion Gap 4 L Blood Urea Nitrogen 11 Creatinine 0.87 Est Glomerular Filtrat Rate mL/min > 60 Glucose Level 86 Calcium Level 10.2 Subjective 24 Hr Interval Summary Free Text/Dictation Patient still has back pain but seems to be easing Exam/Review of Systems Exam Vitals Vital Signs Date Temp Pulse Resp B/P (MAP) Pulse Ox O2 O2 Flow FiO2 Time Delivery Rate 02/06/19 20 13:25 02/06/19 98.6 75 115/74 99 07:32 (88) 02/04/19 Room Air 21:50 02/04/19 8.0 18:02 Intake and Output 02/05/19 02/05/19 02/06/19 1515:00 23:00 07:00 IntakeIntake Total 550 ml 50 ml 230 ml OutputOutput Total 830 ml 2245 ml 1820 ml BalanceBalance -280 ml -2195 ml -1590 ml Constitutional: well developed Head: normocephalic, atraumatic Neck: supple Respiratory: diminished breath sounds Cardiovascular: regular rate and rhythm Gastrointestinal: soft, non-tender Extremities: normal pulses Results Results 24hrs Laboratory Tests Test 02/06/19 04:53 White Blood Count 10.0 Red Blood Count 3.77 #L Hemoglobin 12.4 L Hematocrit 37.1 #L Mean Corpuscular Volume 98.4 Mean Corpuscular Hemoglobin 32.9 Mean Corpuscular Hemoglobin Concent 33.4 Red Cell Distribution Width 12.8 Platelet Count 199 # Mean Platelet Volume 10.6 H Immature Granulocytes % 0.300 Neutrophils % 65.2 Lymphocytes % 20.2 Monocytes % 11.5 H Eosinophils % 2.4 Basophils % 0.4 Nucleated Red Blood Cells % 0.0 Immature Granulocytes # 0.030 Neutrophils # 6.5 Lymphocytes # 2.0 Monocytes # 1.2 H Eosinophils # 0.2 Basophils # 0.0 Nucleated Red Blood Cells # 0.0 Sodium Level 139 Potassium Level 3.8 Chloride Level 103 Carbon Dioxide Level 32 H Anion Gap 4 L Blood Urea Nitrogen 11 Creatinine 0.87 Est Glomerular Filtrat Rate mL/min > 60 Glucose Level 86 Calcium Level 10.2 Medications Medication Current Medications Nicotine (Nicoderm 21 Mg/ 24hr) 1 patch DAILY TRANSDERM Last administered on 02/06/19at 11:03; Admin Dose 1 PATCH; Start 02/04/19 at 12:30 Hydromorphone HCl (Dilaudid MANAGER ENTERPRISE CONTENT MANAGEMENT) 1.0 MG/HR CONTINUOUS RATE 0.... Q4PCA IV Last administered on 02/06/19at 13:22; Admin Dose 6 MG; Start 02/04/19 at 19:12 Cefazolin Sodium/ Dextrose 50 ml @ 100 mls/hr Q8H IVPB Last administered on 02/06/19at 07:46; Admin Dose 100 MLS/HR; Start 02/05/19 at 00:00 Polyethylene Glycol (Miralax) 17 gm DAILY PO Last administered on 02/05/19at 21:44; Admin Dose 17 GM; Start 02/05/19 at 19:30 Ketorolac Tromethamine (Toradol) 30 mg Q6H PRN IV PAIN LEVEL 1-3 Last administered on 02/06/19at 13:18; Admin Dose 30 MG; Start 02/05/19 at 19:30; Stop 8/4/19 at 19:29 Gabapentin (Neurontin) 300 mg TID PO Last administered on 02/06/19at 13:18; Admin Dose 300 MG; Start 02/05/19 at 22:30 Methocarbamol (Robaxin) 750 mg TID PO Last administered on 02/06/19at 13:23; Admin Dose 750 MG; Start 02/05/19 at 23:30 Hydromorphone HCl (Dilaudid) 2 mg Q3H PRN IV SEVERE PAIN LEVEL 7-10; Start 02/06/19 at 12:00 Trazodone HCl (Desyrel) 50 mg HS PO ; Start 02/06/19 at 21:00 CHRISTOPHER SQUIRES Feb 06, 2019 14:45
[2019-02-06] MEDS: HYDROmorphONE 2 MG/ML SYG IV PRN ×3 (14:46→23:01)
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
[2019-02-06 15:48] VITALS: BP 116/74; PULSE 67; RESP 20
[2019-02-06 19:40] VITALS: BP 116/76; PULSE 80; RESP 18
[2019-02-06] MEDS: traZODone 50 MG TAB PO SCH (21:16)
[2019-02-07] MEDS: HYDROmorphONE 0.2 MG/ML PCA IV SCH ×4 (02:07→20:45)
[2019-02-07 02:30] VITALS: BP 115/65; PULSE 77; RESP 18
[2019-02-07] MEDS: HYDROmorphONE 2 MG/ML SYG IV PRN ×7 (02:53→21:22)
[2019-02-07 08:00] VITALS: Ht 170.2 cm; Wt 68.2 kg
[2019-02-07 08:10] VITALS: BP 110/72; PULSE 76; RESP 17
[2019-02-07] MEDS: METHOCARBAMOL 750 MG TAB PO SCH ×3 (08:54→20:48)
[2019-02-07] MEDS: POLYETHYLENE GLYCOL 17 GM PACKET PO SCH (08:54)
[2019-02-07] MEDS: GABAPENTIN 300 MG CAP PO SCH ×3 (08:54→20:48)
[2019-02-07] MEDS: NICOTINE (21 MG/24 HR) PATCH TRANSDERM SCH (08:59)
--- NOTE | 2019-02-07 12:16 | PN ---
Date/Time of Note Date/Time of Note DATE: 02/07/19 TIME: 12:16 Assessment/Plan VTE Prophylaxis Risk score (from Nsg)>0 risk: 5 SCD applied (from Nsg): Yes Pharmacological prophylaxis: LMWH Lines/Catheters IV Catheter Type (from Nrsg): Peripheral IV Urinary Cath still in place: No Assessment/Plan Hospital Course 1) back pain, fractures in spinous process of back - to have surgical repair - pain medication Result Diagram: 02/06/19 0453 02/06/19 0453 Subjective 24 Hr Interval Summary Free Text/Dictation Patient still has severe pain in back but is showing some improvement Exam/Review of Systems Exam Vitals Vital Signs Date Temp Pulse Resp B/P (MAP) Pulse Ox O2 O2 Flow FiO2 Time Delivery Rate 02/07/19 98.3 76 17 110/72 99 Room Air 08:10 (85) 02/04/19 8.0 18:02 Intake and Output 02/06/19 02/06/19 02/07/19 1515:00 23:00 07:00 IntakeIntake Total 1500 ml 1110 ml 480 ml OutputOutput Total 615 ml 2400 ml 800 ml BalanceBalance 885 ml -1290 ml -320 ml Constitutional: well developed Head: normocephalic, atraumatic Neck: supple Respiratory: diminished breath sounds Cardiovascular: regular rate and rhythm Gastrointestinal: soft, non-tender Extremities: normal pulses Medications Medication Current Medications Nicotine (Nicoderm 21 Mg/ 24hr) 1 patch DAILY TRANSDERM Last administered on 02/07/19at 08:59; Admin Dose 1 PATCH; Start 02/04/19 at 12:30 Hydromorphone HCl (Dilaudid INTERVENTIONAL PAIN PHYSICIAN) 1.0 MG/HR CONTINUOUS RATE 0.... Q4PCA IV Last administered on 02/07/19at 07:54; Admin Dose 6 MG; Start 02/04/19 at 19:12 Polyethylene Glycol (Miralax) 17 gm DAILY PO Last administered on 02/07/19at 08:54; Admin Dose 17 GM; Start 02/05/19 at 19:30 Ketorolac Tromethamine (Toradol) 30 mg Q6H PRN IV PAIN LEVEL 1-3 Last administered on 02/06/19at 13:18; Admin Dose 30 MG; Start 02/05/19 at 19:30; Stop 02/08/19 at 19:29 Gabapentin (Neurontin) 300 mg TID PO Last administered on 02/07/19 08:54; Admin Dose 300 MG; Start 02/05/19 at 22:30 Methocarbamol (Robaxin) 750 mg TID PO Last administered on 02/07/19 08:54; Admin Dose 750 MG; Start 02/05/19 at 23:30 Hydromorphone HCl (Dilaudid) 2 mg Q3H PRN IV SEVERE PAIN LEVEL 7-10 Last administered on 02/07/19 11:59; Admin Dose 2 MG; Start 02/06/19 at 12:00 Trazodone HCl (Desyrel) 50 mg HS PO Last administered on 02/06/19 21:16; Admin Dose 50 MG; Start 02/06/19 at 21:00 CHRISTOPHER SQUIRES Feb 07, 2019 12:16
[2019-02-07 15:19] VITALS: BP 109/73; PULSE 83; RESP 18
[2019-02-07] MEDS: KETOROLAC 30 MG INJ IV PRN ×2 (15:45→21:21)
[2019-02-07] MEDS: traZODone 50 MG TAB PO SCH (20:48)
[2019-02-07 21:04] VITALS: BP 131/72; PULSE 80; RESP 20
[2019-02-08] MEDS: HYDROmorphONE 2 MG/ML SYG IV PRN ×8 (00:18→21:37)
[2019-02-08 02:30] VITALS: BP 132/69; PULSE 65; RESP 18
[2019-02-08] MEDS: HYDROmorphONE 0.2 MG/ML PCA IV SCH ×4 (03:15→21:45)
[2019-02-08] MEDS: KETOROLAC 30 MG INJ IV PRN ×4 (03:43→18:36)
[2019-02-08 07:33] VITALS: BP 126/67; PULSE 76; RESP 15
[2019-02-08] MEDS: GABAPENTIN 300 MG CAP PO SCH ×3 (09:41→21:34)
[2019-02-08] MEDS: POLYETHYLENE GLYCOL 17 GM PACKET PO SCH (09:41)
[2019-02-08] MEDS: METHOCARBAMOL 750 MG TAB PO SCH ×3 (09:41→21:35)
[2019-02-08] MEDS: NICOTINE (21 MG/24 HR) PATCH TRANSDERM SCH (09:42)
--- NOTE | 2019-02-08 10:10 | PN ---
Date/Time of Note Date/Time of Note DATE: 02/08/19 TIME: 10:10 Assessment/Plan VTE Prophylaxis Risk score (from Nsg)>0 risk: 3 SCD applied (from Nsg): Yes Pharmacological prophylaxis: LMWH Lines/Catheters IV Catheter Type (from Nrsg): Peripheral IV Urinary Cath still in place: No Assessment/Plan Hospital Course 1) back pain, fractures in spinous process of back - to have surgical repair - pain medication Result Diagram: 02/06/1945202/06/19452 Subjective 24 Hr Interval Summary Free Text/Dictation Patient resting, appears comfortable Exam/Review of Systems Exam Vitals Vital Signs Date Temp Pulse Resp B/P (MAP) Pulse Ox O2 O2 Flow FiO2 Time Delivery Rate 02/08/19 98.0 76 15 126/67 100 Room Air 07:33 (86) 02/04/19 8.0 18:02 Intake and Output 02/07/19 02/07/19 02/08/19 1515:00 23:00 07:00 IntakeIntake Total 1840 ml OutputOutput Total 1000 ml BalanceBalance 1840 ml -1000 ml Constitutional: well developed Head: normocephalic, atraumatic Neck: supple Respiratory: diminished breath sounds Cardiovascular: regular rate and rhythm Gastrointestinal: soft, non-tender Extremities: normal pulses Medications Medication Current Medications Nicotine (Nicoderm 21 Mg/ 24hr) 1 patch DAILY TRANSDERM Last administered on 02/08/19at 09:42; Admin Dose 1 PATCH; Start 02/04/19 at 12:30 Hydromorphone HCl (Dilaudid PIPE TURNER) 1.0 MG/HR CONTINUOUS RATE 0.... Q4PCA IV Last administered on 02/08/19at 09:40; Admin Dose 6 MG; Start 02/04/19 at 19:12 Polyethylene Glycol (Miralax) 17 gm DAILY PO Last administered on 02/08/19 09:41; Admin Dose 17 GM; Start 02/05/19 at 19:30 Ketorolac Tromethamine (Toradol) 30 mg Q6H PRN IV PAIN LEVEL 1-3 Last administered on 02/08/19 06:41; Admin Dose 30 MG; Start 02/05/19 at 19:30; Stop 02/08/19 at 19:29 Gabapentin (Neurontin) 300 mg TID PO Last administered on 02/08/19 09:41; Admin Dose 300 MG; Start 02/05/19 at 22:30 Methocarbamol (Robaxin) 750 mg TID PO Last administered on 02/08/19 09:41; A dmin Dose 750 MG; Start 02/05/19 at 23:30 Hydromorphone HCl (Dilaudid) 2 mg Q3H PRN IV SEVERE PAIN LEVEL 7-10 Last administered on 02/08/19 09:40; Admin Dose 2 MG; Start 02/06/19 at 12:00 Trazodone HCl (Desyrel) 50 mg HS PO Last administered on 02/07/19 20:48; Admin Dose 50 MG; Start 02/06/19 at 21:00 CHRISTOPHER SQUIRES Feb 08, 2019 10:10
[2019-02-08 14:39] VITALS: BP 140/81; PULSE 70; RESP 15
[2019-02-08 19:23] VITALS: BP 123/64; PULSE 63; RESP 14
[2019-02-08] MEDS: traZODone 50 MG TAB PO SCH (21:34)
[2019-02-09] MEDS: HYDROmorphONE 2 MG/ML SYG IV PRN ×8 (00:49→23:01)
[2019-02-09 01:14] VITALS: BP 145/70; PULSE 73; RESP 16
[2019-02-09] MEDS: HYDROmorphONE 0.2 MG/ML PCA IV SCH ×4 (04:07→22:57)
[2019-02-09 07:59] VITALS: BP 121/62; PULSE 68; RESP 19
[2019-02-09] MEDS: METHOCARBAMOL 750 MG TAB PO SCH ×3 (09:10→23:01)
[2019-02-09] MEDS: POLYETHYLENE GLYCOL 17 GM PACKET PO SCH (09:10)
[2019-02-09] MEDS: GABAPENTIN 300 MG CAP PO SCH ×3 (09:10→23:02)
[2019-02-09] MEDS: NICOTINE (21 MG/24 HR) PATCH TRANSDERM SCH (09:12)
--- NOTE | 2019-02-09 13:17 | PN ---
Date/Time of Note Date/Time of Note DATE: 02/09/19 TIME: 13:17 Assessment/Plan VTE Prophylaxis Risk score (from Nsg)>0 risk: 4 SCD applied (from Nsg): Yes Pharmacological prophylaxis: LMWH Lines/Catheters IV Catheter Type (from Nrsg): Peripheral IV Urinary Cath still in place: No Assessment/Plan Hospital Course 1) back pain, fractures in spinous process of back - to have surgical repair - pain medication Result Diagram: 02/06/193 02/06/19 045 Subjective 24 Hr Interval Summary Free Text/Dictation Patient still having considerable amount of back pain Exam/Review of Systems Exam Vitals Vital Signs Date Temp Pulse Resp B/P (MAP) Pulse Ox O2 O2 Flow FiO2 Time Delivery Rate 02/09/19 13 12:59 02/09/19 98.1 68 121/62 98 07:59 (81) 02/09/19 Room Air 01:14 Intake and Output 02/08/19 02/08/19 02/09/19 1515:00 23:00 07:00 IntakeIntake Total 580 ml 500 ml 500 ml OutputOutput Total 600 ml 1700 ml BalanceBalance 580 ml -100 ml -1200 ml Constitutional: well developed Head: normocephalic, atraumatic Neck: supple Respiratory: diminished breath sounds Cardiovascular: regular rate and rhythm Gastrointestinal: soft, non-tender Extremities: normal pulses Medications Medication Current Medications Nicotine (Nicoderm 21 Mg/ 24hr) 1 patch DAILY TRANSDERM Last administered on 02/09/19 09:12; Admin Dose 1 PATCH; Start 02/04/19 at 12:30 Hydromorphone HCl (Dilaudid [employer] SL[employer] SPLITTING) 1.0 MG/HR CONTINUOUS RATE 0.... Q4PCA IV Last administered on 02/09/19 10:17; Admin Dose 6 MG; Start 02/04/19 at 19:12 Polyethylene Glycol (Miralax) 17 gm DAILY PO Last administered on 02/09/19 09:10; Admin Dose 17 GM; Start 02/05/19 at 19:30 Gabapentin (Neurontin) 300 mg TID PO Last administered on 02/09/19 12:56; Admin Dose 300 MG; Start 02/05/19 at 22:30 Methocarbamol (Robaxin) 750 mg TID PO Last administered on 02/09/19 12:56; Admin Dose 750 MG; Start 02/05/19 at 23:30 Hydromorphone HCl (Dilaudid) 2 mg Q3H PRN IV SEVERE PAIN LEVEL 7-10 Last administered on 02/09/19 10:15; Admin Dose 2 MG; Start 02/06/19 at 12:00 Trazodone HCl (Desyrel) 50 mg HS PO Last administered on 02/08/19 21:34; Admin Dose 50 MG; Start 02/06/19 at 21:00 CHRISTOPHER SQUIRES Feb 09, 2019 13:17
[2019-02-09 15:17] VITALS: BP 141/88; PULSE 70; RESP 20
[2019-02-09 20:00] VITALS: BP 135/89; PULSE 70; RESP 18
[2019-02-09] MEDS: traZODone 50 MG TAB PO SCH (23:01)
[2019-02-10 02:00] VITALS: BP 134/80; PULSE 79; RESP 18
[2019-02-10] MEDS: HYDROmorphONE 2 MG/ML SYG IV PRN ×2 (02:02→06:47)
[2019-02-10] MEDS: HYDROmorphONE 0.2 MG/ML PCA IV SCH (04:28)
[2019-02-10 07:34] VITALS: BP 140/83; PULSE 73; RESP 18
[2019-02-10] MEDS: NICOTINE (21 MG/24 HR) PATCH TRANSDERM SCH (08:34)
[2019-02-10] MEDS: oxyCODONE (CR) 10 MG TAB [oxyCONTIN] PO SCH ×3 (08:35→21:27)
[2019-02-10] MEDS: GABAPENTIN 300 MG CAP PO SCH ×3 (08:35→20:07)
[2019-02-10] MEDS: POLYETHYLENE GLYCOL 17 GM PACKET PO SCH (08:39)
[2019-02-10] MEDS: METHOCARBAMOL 750 MG TAB PO SCH ×3 (09:02→20:07)
[2019-02-10] MEDS: oxyCODONE 5 MG TAB PO PRN ×3 (09:02→17:18)
[2019-02-10] MEDS: HYDROmorphONE 1 MG/ML SYG IV PRN ×4 (11:14→20:13)
--- NOTE | 2019-02-10 14:20 | PN ---
Date/Time of Note Date/Time of Note DATE: 02/10/19 TIME: 14:19 Assessment/Plan VTE Prophylaxis Risk score (from Nsg)>0 risk: 6 SCD applied (from Nsg): Yes Pharmacological prophylaxis: LMWH Lines/Catheters IV Catheter Type (from Nrsg): Saline Lock Urinary Cath still in place: No Assessment/Plan Hospital Course 1) back pain, fractures in spinous process of back - to have surgical repair - pain medication Result Diagram: 02/06/1945202/06/19452 Subjective 24 Hr Interval Summary Free Text/Dictation Patient still having pain in back Exam/Review of Systems Exam Vitals Vital Signs Date Temp Pulse Resp B/P (MAP) Pulse Ox O2 O2 Flow FiO2 Time Delivery Rate 02/10/19 08:00 02/10/19 98.0 73 140/83 99 Room Air 07:34 (102) Intake and Output 02/09/19 02/09/19 02/10/19 1515:00 23:00 07:00 IntakeIntake Total 200 ml 100 ml BalanceBalance 200 ml 100 ml Constitutional: well developed Head: normocephalic, atraumatic Neck: supple Respiratory: diminished breath sounds Cardiovascular: regular rate and rhythm Gastrointestinal: soft, non-tender Extremities: normal pulses Medications Medication Current Medications Nicotine (Nicoderm 21 Mg/ 24hr) 1 patch DAILY TRANSDERM Last administered on 02/10/19at 08:34; Admin Dose 1 PATCH; Start 02/04/19 at 12:30 Polyethylene Glycol (Miralax) 17 gm DAILY PO Last administered on 02/09/19at 09:10; Admin Dose 17 GM; Start 02/05/19 at 19:30 Gabapentin (Neurontin) 300 mg TID PO Last administered on 02/10/19at 13:14; Admin Dose 300 MG; Start 02/05/19 at 22:30 Methocarbamol (Robaxin) 750 mg TID PO Last administered on 02/10/19 13:14; Admin Dose 750 MG; Start 02/05/19 at 23:30 Trazodone HCl (Desyrel) 50 mg HS PO Last administered on 02/09/19at 23:01; Admin Dose 50 MG; Start 02/06/19 at 21:00 Oxycodone HCl (Oxycontin) 10 mg TID@0900,1500,2100 PO Last administered on 02/10/19 08:35; Admin Dose 10 MG; Start 02/10/19 at 09:00 Oxycodone HCl (Roxicodone) 5 mg Q4H PRN PO BREAKTHROUGH PAIN Last administered on 02/10/19 13:14; Admin Dose 5 MG; Start 02/10/19 at 07:30 Hydromorphone HCl (Dilaudid) 1 mg Q3H PRN IV SEVERE PAIN LEVEL 7-10 Last administered on 02/10/19 14:13; Admin Dose 1 MG; Start 02/10/19 at 11:00 CHRISTOPHER SQUIRES Feb 10, 2019 14:20
[2019-02-10 15:13] VITALS: BP 130/85; PULSE 71; RESP 18
[2019-02-10 19:57] VITALS: BP 155/83; PULSE 66; RESP 18
[2019-02-10] MEDS: traZODone 50 MG TAB PO SCH (20:07)
[2019-02-11 01:54] VITALS: BP 112/69; PULSE 63; RESP 18
[2019-02-11] MEDS: HYDROmorphONE 1 MG/ML SYG IV PRN ×3 (05:40→11:40)
[2019-02-11] MEDS: oxyCODONE 5 MG TAB PO PRN ×2 (06:50→10:55)
[2019-02-11 07:51] VITALS: BP 120/60; PULSE 60; RESP 18
[2019-02-11] MEDS: METHOCARBAMOL 750 MG TAB PO SCH ×2 (08:30→12:54)
[2019-02-11] MEDS: GABAPENTIN 300 MG CAP PO SCH ×2 (08:30→12:54)
[2019-02-11] MEDS: oxyCODONE (CR) 10 MG TAB [oxyCONTIN] PO SCH (08:30)
[2019-02-11] MEDS: NICOTINE (21 MG/24 HR) PATCH TRANSDERM SCH (08:30)
[2019-02-11] MEDS: POLYETHYLENE GLYCOL 17 GM PACKET PO SCH (08:35)
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
== END 2019-02-11 13:00 | disposition home or self-care (01) | DRG 497 ==
LOC: E/R 08:40 → MS1 09:38 → OBSVTOIN 02-04 07:04
PROVIDERS: ADMIT Internal Medicine; ATTEND Internal Medicine
PROC: 0QB00ZZ Excision of Lumbar Vertebra, Open Approach (ICD-10-PCS; 2019-02-04)
PROC: 0QP004Z Removal of Internal Fixation Device from Lumbar Vertebra, Open Approach (ICD-10-PCS; principal; 2019-02-04 15:00)
DX: S32.039A Unspecified fracture of third lumbar vertebra, initial encounter for closed fracture (principal); I10 Essential (primary) hypertension; G89.29 Other chronic pain; V43.92XA Unspecified car occupant injured in collision with other type car in traffic accident, initial encounter; Y92.410 Unspecified street and highway as the place of occurrence of the external cause
CPT/HCPCS: 36415; 71045; 72114; 72131; 80048; 84484; 85025; 85610; 85730; 86850; 86900; 86901; 87086; 88300; 88304; 88311; 93005; 96374; 96375; 97116; 97162; 97530; G0378; J0690; J1170; J1200; J1885; J2175; J2250; J2270; J2405; J2795; J3010